=== PATIENT | female | born 1960 | race African-American/Black ===

== ENCOUNTER 2016-12-03 19:55 | Inpatient (IN) ==
[2016-12-03] MEDS ORDERED: NARCAN IV ONE (20:05)
[2016-12-03 20:36] LABS: ALLEN TEST YES; BE 2.9 mmoll (-3.0-3.0); BLOOD TYPE ARTERIAL; DRAW SITE R RADIAL; METHB 1.3 % (0.0-1.5); O2(CT) 6.7 mL/dL (15.0-23.0); PCO2(98.6) 37 mmHg (35-45); PO2(98.6) 101 mmHg (60-100); SAMPLE BLOOD; SAO2 99.6 % (95.0-100.0); THB 4.8 g/dL (11.5-17.4); pH(98.6) 7.47 (7.35-7.45)
[2016-12-03 20:37] LABS: MODALITY CANNULA
[2016-12-03 20:40] LABS: BASO% 0.1 % (0.0-0.8); EOS# 0.01 X1000 (0.0-0.7); HEMATOCRIT 14.9 % (37.0-47.0); HEMOGLOBIN 4.7 g/dL (12.0-16.0); IMM GRAN# 0.11 X1000 (0.0-0.04); IMM GRAN% 0.4 % (0.0-0.5); LYMPH# 2.56 X1000 (1.2-3.4); LYMPH% 10.4 % (20.5-51.1); MANUAL DIFF NEEDED? YES; MCH 23.6 PG (27-31); MCHC 31.5 g/dL (33-37); MCV 74.9 FL (81-99); MONO# 1.69 X1000 (0.11-0.59); MONO% 6.9 % (1.7-9.3); MPV 10.1 FL (7.4-10.4); NEUT% 82.2 % (42.2-75.2); PLT 882 X1000 (130-400); RBC 1.99 XMIL (4.2-5.4)
--- NOTE | 2016-12-03 20:41 | Diag Imaging Result Doc PS360 ---
EXAM: HEAD W/O CONTRAST HISTORY: AMS TECHNIQUE: Dose reduction protocol COMPARISON: 10/18/2014 FINDINGS: No parenchymal hemorrhage. No epidural or subdural hematoma. No subarachnoid hemorrhage. No mass identified on this noncontrasted exam. No hydrocephalus. No sinus opacification. IMPRESSION: No hemorrhage. Negative brain CT without contrast. Electronically signed by Martell Araujo 12/03/2016 8:37 PM
[2016-12-03 20:44] LABS: AGAP 15; ALBUMIN 3.1 g/dL (3.5-5.0); ALKALINE PHOSPHATASE 92 U/L (32-104); BUN 48 mg/dL (8-22); CALCIUM 10.6 mg/dL (8.8-10.2); CHLORIDE 94 mmol/L (98-107); CK PROFILE 90 U/L (24-173); COSMO 302; GOT 16 U/L (10-30); GPT 12 U/L (10-36); SODIUM 133 mmol/L (136-145); TCO2 24 mmol/L (25-35); TOTAL BILIRUBIN 0.21 mg/dL (0.20-1.00); TOTAL PROTEIN 5.9 g/dL (6.3-8.3)
[2016-12-03 20:55] LABS: INR 1.11; PROTIME 11.7 Seconds (9.2-11.7); PTT 21.5 Seconds (22.0-36.0)
[2016-12-03] MEDS ORDERED: HUMULIN R SUBQ ONE (21:01)
[2016-12-03 21:03] LABS: HYPOCHROM 2+; LYMPHS 8 % (21-51); MONO 8 % (1-9); NRBC 1 % (0-0)
--- NOTE | 2016-12-03 21:11 | Diag Imaging Result Doc PS360 ---
EXAM: CHEST-PORTABLE HISTORY: AMS TECHNIQUE: Portable COMPARISON: 10/18/2014 FINDINGS: The lungs are well expanded. Heart is not enlarged. The vessels are not distended. No pneumonia. No pleural effusions identified. IMPRESSION: Negative chest. Electronically signed by Martell Araujo 12/03/2016 9:09 PM
[2016-12-03 21:18] LABS: URINE CULTURE NEEDED? NO; URINE MICRO REVIEW NEEDED? NO; URINE SOURCE CATH
[2016-12-03 21:26] LABS: BILIRUBIN URINE NEGATIVE (NEGATIVE); BLOOD URINE NEGATIVE (NEGATIVE); COLOR YELLOW; GLUCOSE URINE >1000 mg/dL (NEGATIVE); LEUKOCYTES URINE NEGATIVE (NEGATIVE); NITRITE URINE NEGATIVE (NEGATIVE); PH URINE 5.5; PROTEIN URINE TRACE mg/dL (NEGATIVE); SP GRAVITY URINE 1.024; TURBIDITY URINE CLEAR (CLEAR); UROBILINOGEN URINE NORMAL (NORMAL)
[2016-12-03] MEDS ORDERED: PROTONIX 80 MG in NS 80 ML IV ONE (21:30)
[2016-12-03 21:36] LABS: UR EPITHELIAL CELLS <10 /HPF (<10); URINE BACTERIA NEGATIVE /HPF; URINE RBC <10 /HPF (<10); URINE WBC <10 /HPF (<10)
[2016-12-03 21:38] LABS: UR AMPHETAMINES QUAL NONE DETECTED (NONE DETECT); UR BARBITUATES QUAL NONE DETECTED (NONE DETECT); UR BENZODIAZEPIN QUAL NONE DETECTED (NONE DETECT); UR CANNABINOIDS QUAL NONE DETECTED (NONE DETECT); UR COCAINE QUAL NONE DETECTED (NONE DETECT); UR METHADONE QUAL NONE DETECTED (NONE DETECT); UR OPIATES QUAL NONE DETECTED (NONE DETECT); UR OXYCODONE QUAL PRESUMPTIVE POSITIVE (NONE DETECT); UR PCP QUAL NONE DETECTED (NONE DETECT)
[2016-12-03] MEDS ORDERED: MORPHINE IM ONE (21:55)
[2016-12-03] MEDS ORDERED: PROTONIX 80 MG in NS 80 ML IV SCH (22:00)
[2016-12-03] MEDS ORDERED: MORPHINE IV ONE (22:20)
--- NOTE | 2016-12-03 22:41 | PROVIDER DOCUMENTATION ---
This chart was entered by Olamide Pastor Scribe, acting as scribe for Jamie Morton MD. HPI-General Adult - General Chief Complaint: Altered Mental Status Stated Complaint: HIGH BLOOD SURGER Time Seen by Provider: 12/03/16 19:59 Source: EMS Unable to obtain history due to:: altered Allergies/Adverse Reactions: Patient Allergies Allergy/AdvReac Type Severity Reaction Status Date / Time No Known Allergies Allergy Verified 12/03/16 20:34 Home Medications: Home Medication List Medication Instructions Recorded Confirmed Last Taken Type Amlodipine Besylate 5 mg PO DAILY 12/03/16 12/03/16 Unknown History Apixaban [Eliquis] 2.5 mg PO DAILY 12/03/16 12/03/16 Unknown History Clopidogrel Bisulfate [Plavix] 75 mg PO DAILY 12/03/16 12/03/16 Unknown History Cyclobenzaprine [Flexeril] 1 tab PO TID PRN 12/03/16 12/03/16 Unknown History Diclofenac Sodium 50 mg PO BID 12/03/16 12/03/16 Unknown History Doxepin [Sinequan] 25 mg PO DAILY 12/03/16 12/03/16 Unknown History Gabapentin 800 mg PO TID 12/03/16 12/03/16 Unknown History Glipizide 5 mg PO DAILY 12/03/16 12/03/16 Unknown History Iron,Carbonyl/Vit C/Vit B12/FA 1 tab PO DAILY 12/03/16 12/03/16 Unknown History [Iron 100 Plus Tablet] Lansoprazole 30 mg PO DAILY 12/03/16 12/03/16 Unknown History Melatonin 10 mg PO DAILY 12/03/16 12/03/16 Unknown History Metformin [Glucophage] 1 tab PO BID 12/03/16 12/03/16 Unknown History Multivit-Min/FA/Lycopen/Lutein 1 tab PO DAILY 12/03/16 12/03/16 Unknown History [Centrum Silver Tablet] Oxycodone HCl/Acetaminophen 1 tab PO TID PRN 12/03/16 12/03/16 Unknown History [Oxycodone-Acetaminophen 10-325] Oxymorphone HCl [Opana ER] 15 mg PO BID 12/03/16 12/03/16 Unknown History Pravastatin Sodium [Pravachol] 20 mg PO DAILY 12/03/16 12/03/16 Unknown History Sucralfate [Carafate] 1 tab PO TID 12/03/16 12/03/16 Unknown History Telmisartan/Hydrochlorothiazid 1 tab PO DAILY 12/03/16 12/03/16 Unknown History [Telmisartan-Hctz 80-12.5 mg Tb] Thyroid,Pork [Nature-Throid] 97.5 mg PO DAILY 12/03/16 12/03/16 Unknown History Vortioxetine Hydrobromide 10 mg PO DAILY 12/03/16 12/03/16 Unknown History [Trintellix] - History of Present Illness -Gen Adult Nature of Presenting Problems: 56 Y/O F presents to ED with Hypoglycemia. Pt was brought in by EMS, EMS states that pt was A&O X1 slightly improved with a Bolus of fluid. Pt was picked up in [place] at her residence, called in by sons. pt glucose was over 600 tested by EMS.EMS states family stated worsening throughout the day. Severity: reports: severe Onset/Duration: reports: this evening Timing: reports: still present Context/Activities at Onset: reports: none - Diabetes Related Context Context: reports: high blood sugar, change in mental status Review of Systems - Adult - REVIEW OF SYSTEMS - ADULT ROS:: unobtainable per condition (pt is Altered in ED) Constitutional: denies: chills, fever Eyes: reports: no symptoms reported Ears, Nose, Mouth & Throat: reports: no symptoms reported Cardiovascular: reports: no symptoms reported Respiratory: reports: no symptoms reported Gastrointestinal: reports: no symptoms reported Genitourinary: reports: no symptoms reported Musculoskeletal: reports: no symptoms reported Integumentary: reports: no symptoms reported Neurological: reports: no symptoms reported Psychiatric: reports: no symptoms reported Endocrine: reports: other (high blood sugar) Hematologic/Lymphatic: reports: no symptoms reported Allergic/Immunologic: reports: no symptoms reported All Other Systems: Reviewed and Negative Past History - Adult - PAST MEDICAL HISTORY-ADULT Review of Records: reports: Old Records Reviewed, Nursing Assessment Review, Medications Reviewed, Social history reviewed & non-contributory. Major Childhood Illnesses: reports: denies history Cardiovascular: reports: CHF, HTN, hyperlipidemia Respiratory: reports: denies history Gastrointestinal: reports: denies history Obstetrical/Gynecological: reports: denies history Genitourinary: reports: denies history Musculoskeletal: reports: chronic pain, intervertebral disc disease Neurological: reports: CVA Endocrine/Immune: reports: Diabetes Other Conditions: reports: denies history - PRIOR SURGERIES/PROCEDURES Surgical/Procedure History: reports: cholecystectomy, hysterectomy, BTL, other ( nodules, cataract) - PRIOR HOSPITALIZATIONS Prior Hospitalizations: reports: for other non-related - IMMUNIZATION STATUS Childhood Immunizations: See Nurse Assessment Flu Vaccine: See Nurse Assessment - FAMILY HISTORY Family History: reviewed, not pertinent Physical Exam-General - CONSTITUTIONAL General Appearance: moderate distress. negative: appears well - HEAD, EARS, NOSE, MOUTH & THROAT HENMT: normal ENT inspection. negative: moist mucous membranes - NECK Neck: full range of motion, supple - RESPIRATORY Respiratory: lungs clear, normal breath sounds - CARDIOVASCULAR Cardiovascular: regular rate, rhythm - GASTROINTESTINAL (ABDOMEN) Abdominal Exam: non tender, soft - LYMPHATIC Lymphatic: no adenopathy - MUSCULOSKELETAL Back Exam: no CVA tenderness, no vertebral tenderness Extremity: normal range of motion - SKIN Integumentary: normal color, normal turgor - NEUROLOGIC Neurologic: grossly normal Progress - PLAN OF CARE/RESULTS Progress/Plan/Lab Results: Vital Signs - 8 hr 12/03/16 20:03 Temperature 100.4 F H Pulse Rate 122 H Respiratory Rate 20 Blood Pressure 125/49 O2 Sat by Pulse Oximetry 92 L Orders Category Date Time Status Cardiac Monitoring DIRECTED Care 12/03/16 20:05 Active Finger Stick Blood Sugar (ED) DIRECTED Care 12/03/16 20:05 Active Oxygen Therapy- ED Nursing DIRECTED Care 12/03/16 20:05 Active Saline Loc NOW Care 12/03/16 20:05 Active CHEST-PORTABLE [RAD] Stat Exams 12/03/16 20:05 Ordered HEAD W/O CONTRAST [CT] Stat Exams 12/03/16 20:06 Ordered ABG [RESP] Routine Lab 12/03/16 20:05 Ordered ALCOHOL BLOOD Stat Lab 12/03/16 20:05 Uncollected CBC WITH ELECTRONIC DIFF [HEME] Stat Lab 12/03/16 20:05 Uncollected CK PROFILE [SP CHEM] Stat Lab 12/03/16 20:05 Uncollected COMPREHENSIVE METABOLIC PANEL [CHEM] Stat Lab 12/03/16 20:05 Uncollected LACTATE, PLASMA [CHEM] Stat Lab 12/03/16 20:05 Uncollected PROTIME WITH INR [COAG] Stat Lab 12/03/16 20:05 Uncollected PTT [COAG] Stat Lab 12/03/16 20:05 Uncollected TROPONIN T Stat Lab 12/03/16 20:05 Uncollected URINALYSIS W/POSS RFLX CULT-1 [URINALYSIS] Stat Lab 12/03/16 20:05 Uncollected URINE DRUG SCREEN Stat Lab 12/03/16 20:05 Uncollected Naloxone [Narcan] Med 12/03/16 20:05 Discontinued 2 mg IV NOW ONE Pulse Oximetry Stat Oth 12/03/16 20:05 Active EKG [EKG] Stat Ther 12/03/16 20:05 Ordered Pt isn't able to follow commands on original exam. Result Diagrams: 12/03/16 20:11 12/03/16 20:11 - EKG 1 Time of EKG reading by physician:: 20:42 EKG Read and Signed by:: Jamie Morton EKG Interpretation (*Must complete 3 of following elements*): Abnormal Rate: 85 Rhythm: SR w/ marked Sinus arrhythmia w/ occasional premature ventricular complexes QRS: LVH (minimal voltage criterua, may be normal variant) Comments: Abnormal ECG,T wave abnormality, consider inferolateral ischemia - XRAY 1 XRAY Study: Chest Impression: Normal XRAY Interpretation: NAD - CT/MRI 1 CT Study: Head Impression: Normal CT Results: Negative - CONSULTS/PCP/HOSPITALIST Notification #1 *Consult/PCP/Hospitalist*: Time Discussed: 21:31 Reason/Comments: Admit Consult Disposition: Admit (Admit Accepted) Departure - Departure Date of Disposition Decision: 12/03/16 Time of Disposition Decision: 22:41 DIAGNOSIS: Altered mental status GI bleed Qualifiers: GI bleed type/associated pathology: unspecified gastrointestinal hemorrhage type Qualified Code(s): K92.2 - Gastrointestinal hemorrhage, unspecified Disposition: ADMITTED INPATIENT 09 Certified Medical Emergency: Emergent Condition: Good - Critical Care Note This patient required my direct & personal management of CC.: No This chart was documented by the indicated scribe, (Olamide Pastor Scribe) and accurately reflects the services I performed and decisions made by me, Jamie Morton MD, as attested by the provider's signature.
[2016-12-03] MEDS ORDERED: VANCOMYCIN 1 GM/NS 1 GM/250 ML IVPB IV ONE (22:42)
[2016-12-03] MEDS ORDERED: ZOSYN 3.375 GM/NS 3.375 GM/50 ML IVPB IV ONE (22:42)
[2016-12-03 22:53] LABS: RETIC% 5.63 % (0.8-2.1); RETIC-HE 23.1 PG (28.2-36.6)
[2016-12-03 23:02] LABS: MAGNESIUM 2.1 mg/dL (1.5-2.7)
[2016-12-03 23:06] LABS: HEMOGLOBIN A1C 8.8 % (4.8-6.0)
[2016-12-03] MEDS ORDERED: SODIUM CHLORIDE 0.9% INJ ONE (23:33)
[2016-12-03] MEDS ORDERED: HALDOL IM PRN (23:33)
[2016-12-03] MEDS ORDERED: ZOFRAN IV PRN (23:33)
[2016-12-04] MEDS: PEPCID IV SCH ×3 (00:05→22:53)
[2016-12-04] MEDS: NS 1,000 ML IV SCH ×3 (00:06→21:35)
[2016-12-04] MEDS: HUMALOG SUBQ SCH ×3 (00:34→07:34)
[2016-12-04 00:51] LABS: HEMATOCRIT 15.3 % (37.0-47.0); HEMOGLOBIN 4.8 g/dL (12.0-16.0)
--- NOTE | 2016-12-04 02:01 | HISTORY AND PHYSICAL ---
HISTORY OF PRESENT ILLNESS: Ms. Dean French is a 56-year-old woman with a past medical history of type 2 diabetes, obstructive sleep apnea, hypertension, peripheral vascular disease, prior CVA, and a history of polypharmacy, with episodes of overdosing inadvertently. She was brought in today by her son, who has since left the hospital, because she was confused and very drowsy and lethargic. She was then given 2 mg of IV Narcan, and became highly animated, agitated, but no longer hypoxic or lethargic. Since then, she has been hollering and shouting, and is unable to answer most of my questions, except she can tell me her name. When I asked if she is hurting, she just keeps hollering. I am unable to get any history. Unfortunately, her son had left hours ago because he said he could no longer do this anymore, and was fed up with his mother's excesses as far as her medication is concerned. REVIEW OF SYSTEMS: Could not be obtained for obvious reasons. ALLERGIES: No known allergies. HOME MEDICATION LIST: 1. Norvasc 5 mg daily. 2. Eliquis 2.5 mg daily. 3. Plavix 75 mg daily. 4. Flexeril 10 mg t.i.d. p.r.n. 5. Diclofenac 5 mg b.i.d. 6. Doxepin 25 mg daily. 7. Gabapentin 100 mg t.i.d. 8. Glipizide 5 mg daily. 9. Icar-C one tablet daily. 10. Lansoprazole 30 mg daily. 11. Melatonin 10 mg at bedtime. 12. Metformin 500 mg b.i.d. 13. Multivitamin tablets once a day. 14. Percocet 10 mg t.i.d. p.r.n. 15. Opana ER 15 mg b.i.d. 16. Pravachol 20 mg daily. 17. Carafate 1 g t.i.d. 18. Micardis/hydrochlorothiazide 80/12.5 mg daily. 19. Thyroid pork 97.5 mg daily. 20. Vortioxetine 10 mg daily. FAMILY HISTORY: Could not be obtained for obvious reasons. PAST SURGICAL HISTORY: Per old records, she has had cataract surgery, peripheral vascular, angioplasty, Clay-en-Y surgery for obesity, cholecystectomy, total abdominal hysterectomy, tubal ligation. SOCIAL HISTORY: Cannot be obtained also. LABORATORY WORK: White count 74,000. Hemoglobin and hematocrit 4 and 15, MCV 75, RDW 17, platelets 882, 82% neutrophils. Sodium 133. Anion gap 15. BUN 48, creatinine 1.1. Blood sugar is 511. Troponin is negative. CK is normal. Lactate 1.5. Urine drug screen positive for oxycodone. Urinalysis: Greater than 1000 glucose, otherwise normal. Blood gas 7.47. pCO2 37, PO2 101, this is on 4 L. Chest x-ray and head CT did not show any acute cardiopulmonary or intracranial processes. PHYSICAL EXAMINATION: GENERAL: Middle-aged woman who is hollering and howling. She is unable to answer any questions. Intermittently, she will calm down and be slightly somnolent. VITAL SIGNS: Temperature of 100.4 degrees, pulse rate 112, respiratory rate 20, blood pressure 125/49, 92% on 2 L. HEENT: Head is normocephalic, atraumatic. Eyes JOHN, EOMI. She is anicteric, but pale. ENT exam is very limited. The patient cannot follow commands. Nasal sinuses visualized however. NECK: Supple. No JVD or carotid bruit. No thyromegaly. CHEST: Clear to auscultation. Good air entry in both lung denise. CARDIOVASCULAR: A 2/6 systolic ejection murmur heard. First and second heart sounds heard. No gallops. Rhythm is regular. ABDOMEN: Soft. No tenderness elicited, i.e. no grimacing. No masses or organomegaly appreciated. Bowel sounds are slightly hyperactive. RECTAL: Deferred rectal exam for GI doctor. EXTREMITIES: Neurovascularly intact. No edema, clubbing, or cyanosis. NEUROLOGIC: No significant focal deficits. SKIN: Intact. No breakdown, lesions, erythema. Good turgor. MUSCULOSKELETAL: Exam is grossly normal. ASSESSMENT AND PLAN: 1. Severe anemia, probably chronic, due to the nature of her MCV, and the fact that her vital signs are relatively stable in the face of this severe degree of anemia. My suspicion is that this patient may have upper GI bleed based on elevated BUN, and risk factors include the following: Eliquis use with Plavix, and an NSAID. She is also taking an SSRI. All of these 4 combine to cause this picture. The patient has been typed and screened, and she will receive 2 units of packed red blood cells at this time. In the interim, she has received IV fluids. Unfortunately, due to the scarcity of PPIs, Protonix, will start on H2 blockers IV high-dose. Consult GI to see her. We will do serial hemoglobin and hematocrits and transfuse accordingly. 2. Leukocytosis, query infectious etiology versus reactive leukocytosis. At this point in time, I cannot see any clear-cut infectious etiology. Will get blood cultures. There is a remote possibility that this could have been an aspiration pneumonia, although there is nothing at this point to suggest this. I think it will be prudent to wait and see if her white count improves after transfusion and hydration, and if it does not, then we will consider repeating either a chest film or a noncontrast third CT to see if she has an occult aspiration pneumonia. 3. Metabolic encephalopathy could be due to hyperglycemia and dehydration. Will address these with insulin sliding scale and Lantus, and IV fluid resuscitation. 4. Type 2 diabetes, well-controlled. Check A1c. Continue Lantus with sliding scale. 5. Hypertension. For now, she is normotensive. Will hold off antihypertensives in the short term, and will start these as needed. 6. Peripheral vascular disease. Held both Plavix and Eliquis in light of highly suspected picture of a GI bleed. 7. Sleep apnea. Once family arrives, we will try to see if we can get a CPAP if she is lucid enough to comply with this. 8. DVT prophylaxis with SCDs in the interim. 9. We will give her low dose opiates and Haldol because the patient is screaming incessantly, as tolerated, without compromising her cardiorespiratory status. cc: MD Meghan Haley MD
[2016-12-04] MEDS ORDERED: D50W SYRINGE IV ONE ×4 (06:02→15:32)
[2016-12-04] MEDS ORDERED: D50W SYRINGE ONE ×4 (06:06→15:26)
[2016-12-04 06:36] LABS: URINE CULTURE NEEDED? NO; URINE MICRO REVIEW NEEDED? NO; URINE SOURCE CATH
[2016-12-04 06:56] LABS: BILIRUBIN URINE NEGATIVE (NEGATIVE); BLOOD URINE NEGATIVE (NEGATIVE); COLOR YELLOW; GLUCOSE URINE 1000 mg/dL (NEGATIVE); LEUKOCYTES URINE NEGATIVE (NEGATIVE); NITRITE URINE NEGATIVE (NEGATIVE); PH URINE 5.5; PROTEIN URINE TRACE mg/dL (NEGATIVE); SP GRAVITY URINE 1.017; TURBIDITY URINE CLEAR (CLEAR); UR EPITHELIAL CELLS <10 /HPF (<10); URINE BACTERIA NEGATIVE /HPF; URINE RBC <10 /HPF (<10); URINE WBC <10 /HPF (<10); UROBILINOGEN URINE NORMAL (NORMAL)
[2016-12-04] MEDS ORDERED: NS 1,000 ML IV SCH (07:51)
[2016-12-04 08:23] LABS: MANUAL DIFF NEEDED? NO
[2016-12-04 08:27] LABS: RETIC% 3.29 % (0.8-2.1); RETIC-HE 24.1 PG (28.2-36.6)
[2016-12-04 08:28] LABS: BASO% 0.1 % (0.0-0.8); EOS# 0.09 X1000 (0.0-0.7); EOS% 0.3 % (0.0-10.0); HEMATOCRIT 25.4 % (37.0-47.0); HEMOGLOBIN 8.5 g/dL (12.0-16.0); IMM GRAN% 0.4 % (0.0-0.5); LYMPH# 3.52 X1000 (1.2-3.4); LYMPH% 13.5 % (20.5-51.1); MCHC 33.5 g/dL (33-37); MCV 77.7 FL (81-99); MONO# 2.64 X1000 (0.11-0.59); MONO% 10.1 % (1.7-9.3); MPV 9.3 FL (7.4-10.4); NEUT% 75.6 % (42.2-75.2); PLT 752 X1000 (130-400); RBC 3.27 XMIL (4.2-5.4)
[2016-12-04 09:19] LABS: ALBUMIN 2.9 g/dL (3.5-5.0); CALCIUM 10.9 mg/dL (8.8-10.2); POTASSIUM 3.1 mmol/L (3.5-5.1); TOTAL BILIRUBIN 0.22 mg/dL (0.20-1.00)
--- NOTE | 2016-12-04 10:31 | Diag Imaging Result Doc PS360 ---
EXAM: THORAX/ABDOMEN/PELVIS W/O CONT HISTORY: leukocytosis/fever TECHNIQUE: Dose reduction protocol COMPARISON: None. FINDINGS: Chest: No pleural effusions. Heart is borderline mildly prominent. No thoracic aortic aneurysm. There are small mediastinal lymph nodes. No consolidation. A small amount of atelectasis or fibrosis is found in the left lung base. No bronchiectasis. Abdomen and pelvis: There has been a gastric bypass procedure. The gallbladder has been removed. No focal hepatic abnormality identified on this noncontrasted exam. Normal spleen and adrenal glands. Normal noncontrasted pancreas. No renal stones. No hydronephrosis. Nonspecific mild retroperitoneal inflammation about the kidneys. Prominent atherosclerosis. No aneurysmal dilatation to the aorta. No bowel obstruction. There is stool throughout the mid and distal colon. The uterus is been removed. No pelvic mass. Urinary bladder is moderately distended IMPRESSION: Chest: No pneumonia Abdomen and pelvis: 1. Gastric bypass and cholecystectomy 2. Constipation 3. Hysterectomy 4. Prominent atherosclerosis. Electronically signed by Martell Araujo 12/04/2016 10:28 AM
[2016-12-04] MEDS ORDERED: D5 NS 1,000 ML IV SCH (10:35)
[2016-12-04] MEDS: HUMULIN R SUBQ SCH ×3 (10:38→21:00)
[2016-12-04] MEDS ORDERED: POTASSIUM CHLORIDE 60 MEQ in NS 500 ML IV ONE (11:00)
[2016-12-04] MEDS ORDERED: SODIUM CHLORIDE 0.9% 10 ML ONE ×2 (11:03→14:21)
[2016-12-04] MEDS ORDERED: DULCOLAX PR ONE (11:05)
--- NOTE | 2016-12-04 11:20 | PROGRESS NOTE ---
DATE: 12/04/2016 SUBJECTIVE: The patient was still very sleepy and lethargic. She has been hypoglycemic this morning. She received 2 units of packed red blood cells this morning. OBJECTIVE: Vital Signs: Temperature 98 degrees, blood pressure 130/61, heart rate 91, respirations 18, O2 saturations 99% on 2 L nasal cannula. General: This is an elderly female, lying in bed, in no acute distress. HEENT: Head normocephalic, atraumatic. Heart: S1, S2 normal. Regular rate and rhythm. Lungs: Clear to auscultation bilaterally. No crackles. No rales. Abdomen: Positive bowel sounds. Soft, nontender, nondistended. Extremities: No edema. No cyanosis. No calf tenderness. Neurologic: The patient is lethargic but she does awaken when her name is called. Labs: White blood cell count 26, hemoglobin 8.5, hematocrit 25, platelets 752,000. Sedimentation rate 30. Sodium 140, potassium 3.1, chloride 102, CO2 24, BUN 44, creatinine 1.3, glucose 36, calcium 10.9, phosphorus 2.7. Albumin 2.9. The CT of the chest, abdomen, and pelvis reveals constipation, cholecystectomy, gastric bypass, stool throughout the colon. ASSESSMENT AND PLAN: 1. Metabolic encephalopathy. Multifactorial. So far, no obvious source of infection has been found. The patient's urinalysis is unremarkable and there is no evidence of pneumonia on the chest CT. Infectious disease has been consulted for further assistance. We will continue to monitor the patient's mental status closely. 2. Hypoglycemia with uncontrolled insulin-dependent diabetes mellitus. We will hold the patient's insulin. The patient will be started on D5 normal saline. We will check the patient's blood sugars every hour. 3. Severe anemia. Due to the patient's altered mental status, I am unable to get a history about the patient's bowel habits. The patient has received 2 units of packed red blood cells, and her hemoglobin and hematocrit are improved 8.5 and 25. The patient is iron deficient. Gastroenterology has been consulted. 4. Leukocytosis. According to the differential, the patient does have a monocytosis. The smear has been sent for pathology review. We will follow up on this report. 5. Iron-deficiency anemia. We will continue to monitor the patient's hemoglobin and hematocrit closely, and transfuse as needed. 6. Thrombocytosis. This may be reactive. We will continue to monitor the patient's platelet count closely. 7. Hypokalemia. We will replace the patient's potassium. 8. Acute kidney injury. Continue with intravenous fluid hydration. 9. Hypertension. Controlled. 10. Hypothyroidism. Aware. 11. History of gastric bypass. Aware. The plan of care was discussed with the patient's son over the phone. cc: Lluvia Kumari MD
[2016-12-04 12:39] LABS: HEMATOCRIT 24.4 % (37.0-47.0); HEMOGLOBIN 8.2 g/dL (12.0-16.0)
--- NOTE | 2016-12-04 15:39 | CONSULTATION ---
DATE OF CONSULTATION: 12/04/2016 CONCLUSION: The patient was admitted to the hospital with her diabetes out of control and she also has been found to have a leukocytosis, the exact etiology of which is uncertain to me. RECOMMENDATIONS: Pending results of cultures I have placed the patient on cefepime. DISCUSSION: The patient does not remember all of her present illness. According to the chart, she was brought in by her son because she was confused and was lethargic. She was given Narcan and became highly animated and agitated but not hypoxic. She had apparently had continued with her hollering and shouting but by the time I saw her today she was out completely composed and talked and acted very appropriately. Unfortunately no family member was present in the room. As mentioned above the patient was brought in to the hospital with an altered mental status. Her CBC showed a white count of 26,050, hemoglobin 8.5 and platelet count 752,000. Creatinine is 1.3. Patient's blood gases show a pH of 7.47, PO2 of 101, pCO2 of 37. Urinalysis was negative for bacteria and white cells. Blood and urine cultures are pending. Chest x- ray showed no infiltrates. CT scan of the chest, abdomen and pelvis showed the presence of a gastric bypass, a cholecystectomy and hysterectomy. Patient also was found to have constipation. CT of the head showed no acute disease. As mentioned above, blood and urine cultures are pending. PAST MEDICAL HISTORY, REVIEW OF SYSTEMS: Eyes and ears: The patient denies any difficulty hearing or seeing. Neck: No stiffness. Respiratory: No cough or shortness of breath. Cardiac: No chest pain or palpitations. GI: No nausea, vomiting, or diarrhea. Genitourinary: No dysuria or flank pain. Endocrine: Patient has diabetes but not thyroid disease. Bones, joints, muscles: Patient is not complaining of any joint pains and she is not complaining of any muscle aches at this time. Neurologic: Patient had an altered mental status when she came to the hospital but now she seems to have returned to normal. She does not have a history of seizures. The remainder of the patient's review of systems was completed and was negative. BRANCH COORDINATOR HISTORY: She is 1, para 1, AB 0. She has had a hysterectomy and tubal ligation. PREVIOUS HOSPITALIZATIONS OPERATIONS: She has had a labor and delivery, a hysterectomy, tubal ligation, gastric bypass, removal of cyst from both axillae. MEDICAL DISEASES: Positive for diabetes mellitus, hypertension, sleep apnea, peripheral vascular disease and overdosing on medications inadvertently. SOCIAL HISTORY: [place] She smoke cigarettes. Does not drink alcoholic beverages or abuse drugs. She is , she lives alone. She is retired from working at [employer]. HOME MEDICATIONS: Include Norvasc, Eliquis, Plavix, Flexeril, diclofenac, doxepin, gabapentin, Icar, lansoprazole, melatonin, metformin, multivitamins, Percocet, Opana ER, Pravachol, Carafate, Micardis/hydrochlorothiazide, thyroid replacement therapy and Vortioxetine. COMORBIDITIES: Would include diabetes mellitus and also the fact that inadvertently does not take her medications as they are prescribed. PHYSICAL EXAM: Vital signs- Temp 97.9, pulse 77, respiration 18, BP 120/61. Lungs-clear to auscultation. CV-regular HR, decreased peripheral pulses. Abdomen-soft and not tender. Neuro-alert, moves all extremities, oriented x 3. Skin-no rashes. HEENT-hearing and vision intact. Thank you for the consult. cc: Arian Mason MD [place]
[2016-12-04] MEDS: MAXIPIME 2 GM/NS 2 GM/100 ML IVPB IV SCH (15:42)
[2016-12-04] MEDS: MORPHINE IV PRN ×2 (15:50→21:35)
[2016-12-04 17:20] LABS: HEMATOCRIT 23.1 % (37.0-47.0); HEMOGLOBIN 7.5 g/dL (12.0-16.0)
--- NOTE | 2016-12-04 17:50 | CONSULTATION ---
DATE OF CONSULTATION: 12/04/2016 CONSULTING PHYSICIAN: Dr. Malhotra. REASON FOR CONSULT: Was profound anemia. HISTORY: This is 56 year female patient with history of diabetes was admitted to hospital after she presented to the emergency room with altered mental status. On admission she was found to have profound anemia with leukocytosis. Consult was obtained for further evaluation and treatment. Patient since admission has recovered her mental status and she is conscious, alert and responding to questions very well. She tells me that she has not had any signs of active bleeding. She has not seen any blood or mucus in her stool. She is not constipated, denies any melena. She has not had any indigestion, heartburn, reflux symptoms. She has not had any dysphagia, odynophagia. Her appetite has been good. She has been eating well. She has not lost any weight. She had a colonoscopy few years ago by Dr. Kraus in [place] and was reported as normal and she is not due for another 1 for few years as it was advised for her to have it done in 10 years. She denies any headache or dizziness or double vision. Denies any earache, ear discharge, ringing in the ear. Has not any sore throat, sores in her mouth. Has not had any chest pain, shortness of breath, or palpitation. Denies any cough , sputum or hemoptysis. She denies dysuria, polyuria, hematuria. PAST MEDICAL HISTORY: Significant for diabetes, hypertension, hypothyroidism and history of anemia. PAST SURGICAL HISTORY: She has history of peripheral vascular disease, gastric bypass surgery, cholecystectomy, hysterectomy and TL. MEDICATION: Prior to hospitalization she has been on diclofenac 5 mg p.o. b.i.d., Eliquis 2.5 mg daily, Plavix 75 mg every day. Other medication she is on Carafate, Norvasc, Flexeril, doxepin, gabapentin, glipizide, Icar-C, lansoprazole, melatonin, metformin, multivitamins , Percocet, Opana, Pravachol and Micardis hydrochlorothiazide, thyroid and vortioxetine. Please add SOCIAL HISTORY: She is retired and lives by herself. She smokes but does not drink, does not do illicit drugs. FAMILY HISTORY: Noncontributory. REVIEW OF SYSTEMS: As per HPI as above. PHYSICAL EXAM: General: On examination very pleasant female thin built , conscious, alert, appears to be in no distress . Vital Signs: Temperature 97.9 degrees, pulse is 77 per minute regular, breathing at 18, blood pressure 120/71, she weighs about 160 pounds, she is 5 feet 6 inches tall. HEENT: Head is atraumatic, normocephalic. Conjunctivae is pale. Sclerae anicteric. Nares are patent. No discharge. Mouth: Buccal mucosa moist. Throat is normal. Neck: Supple. No lymphadenopathy or thyromegaly. Chest: Clear to auscultate. Heart: Regular, no murmur. Abdomen: Is flat, soft, nontender, no masses were noted. Bowel sounds are audible. Extremities: No pedal edema noted. LABS: Reviewed which showed on admission her hemoglobin was 4.8 with hematocrit 15.3, MCV of 74.9, white count was 24.65, platelets were 882,000. PT 11.7, INR 1.11, PTT was 21.5. Sodium on admission was 133, potassium 4.0, chloride 94, bicarb 24, BUN was 48, creatinine 1.1, glucose on admission was 511, hemoglobin A1c was 8.8, iron was low 19, ferritin was 17, total bilirubin 0.21, AST 16, ALT 12, alkaline phosphatase 92, total protein was 5.9, albumin 3.1. IMPRESSION: This is 56 year female who has history of gastric bypass surgery, has been on Eliquis, Plavix along with diclofenac and has presented with altered mental status. Was found to have profound anemia. Indices suggestive of iron deficiency anemia and Hemoccult was positive. There is question of possible occult chronic GI bleed with further complicated by her iron malabsorption secondary to her gastric bypass surgery. She has not shown any signs of overt active bleeding. She is hemodynamically stable after she was rehydrated and she is conscious and alert and responding to questions very well now. Again she is not actively bleeding now. Her hemoglobin and hematocrit has improved after blood transfusion. Since she has had a colonoscopy not too long ago with Dr. Kraus I will start with the esophagogastroduodenoscopy to rule out marginal ulcers that could be reason for occult bleed and anemia. I have explained to her the procedure risks, benefits, alternatives of EGD, she understands, agrees to proceed. She will be scheduled. In the meantime Dr. Mason is on the case for to evaluate for possible infectious etiology of her presentation, her white count has been elevated and workup is in progress. Rest of medical care according to the team. Further plans of repeating her colonoscopy or other measures will be depend on EGD findings that will be scheduled for tomorrow. cc: Shashank Gu MD MTDD
[2016-12-04] MEDS ORDERED: LANTUS SUBQ SCH (21:00)
[2016-12-05] MEDS: MORPHINE IV PRN ×3 (01:23→18:30)
[2016-12-05] MEDS: MAXIPIME 2 GM/NS 2 GM/100 ML IVPB IV SCH ×2 (04:42→16:31)
--- NOTE | 2016-12-05 05:19 | EKG Report ---
Test Performed on : 12/04/2016 1:15:52 PM Test Reason : tachycardia Blood Pressure : / mmHG Vent. Rate : 072 BPM Atrial Rate : 072 BPM P-R Int : 136 ms QRS Dur : 094 ms QT Int : 380 ms P-R-T Axes : 059 018 106 degrees QTc Int : 416 ms Normal sinus rhythm. with sinus arrhythmia. Minimal voltage criteria for LVH, may be normal variant Nonspecific T wave abnormality Abnormal ECG When compared with ECG of 03-DEC-2016 20:42, (Unconfirmed) premature ventricular complexes. are no longer present T wave inversion no longer evident in Inferior leads Confirmed by Damion ESQUEDA, Jared Arceo ([id number]) on 12/05/2016 8:21:09 AM
--- NOTE | 2016-12-05 05:45 | EKG Report ---
Test Performed on : 12/03/2016 8:42:50 PM Test Reason : HYPERGLYCEMIA Blood Pressure : / mmHG Vent. Rate : 085 BPM Atrial Rate : 085 BPM P-R Int : 136 ms QRS Dur : 088 ms QT Int : 320 ms P-R-T Axes : 058 021 149 degrees QTc Int : 380 ms Sinus rhythm. with marked sinus arrhythmia. with occasional premature ventricular complexes. Minimal voltage criteria for LVH, may be normal variant T wave abnormality, consider inferolateral ischemia Abnormal ECG No previous ECGs available Unconfirmed Result
[2016-12-05] MEDS: HUMULIN R SUBQ SCH ×4 (06:24→21:55)
[2016-12-05 06:27] LABS: MANUAL DIFF NEEDED? NO
[2016-12-05 06:40] LABS: BASO% 0.1 % (0.0-0.8); EOS# 0.32 X1000 (0.0-0.7); EOS% 2.1 % (0.0-10.0); HEMOGLOBIN 7.4 g/dL (12.0-16.0); IMM GRAN# 0.07 X1000 (0.0-0.04); IMM GRAN% 0.5 % (0.0-0.5); LYMPH# 3.28 X1000 (1.2-3.4); LYMPH% 21.9 % (20.5-51.1); MCH 25.3 PG (27-31); MCHC 32.2 g/dL (33-37); MCV 78.8 FL (81-99); MONO# 1.57 X1000 (0.11-0.59); MONO% 10.5 % (1.7-9.3); MPV 9.6 FL (7.4-10.4); NEUT% 64.9 % (42.2-75.2); PLT 612 X1000 (130-400); RBC 2.92 XMIL (4.2-5.4)
[2016-12-05] MEDS ORDERED: INSULIN PEN NEEDLES ONE (06:53)
[2016-12-05 07:19] LABS: AGAP 10; ALBUMIN 2.7 g/dL (3.5-5.0); BUN 32 mg/dL (8-22); CALCIUM 10.3 mg/dL (8.8-10.2); CHLORIDE 104 mmol/L (98-107); COSMO 285; MAGNESIUM 1.9 mg/dL (1.5-2.7); POTASSIUM 3.6 mmol/L (3.5-5.1); SODIUM 138 mmol/L (136-145); TCO2 24 mmol/L (25-35)
[2016-12-05] MEDS ORDERED: POTASSIUM PHOSPHATE 40 MMOL in NS 250.0000 ML IV ONE (07:56)
[2016-12-05] MEDS: NS 1,000 ML IV SCH (08:48)
[2016-12-05] MEDS ORDERED: LANTUS SUBQ SCH ×2 (09:00)
--- NOTE | 2016-12-05 11:22 | PROGRESS NOTE ---
DATE: 12/05/2016 SUBJECTIVE: The patient is awake and alert and oriented this morning. Her blood sugars were in the 500s last night after being severely hypoglycemic during the day yesterday. OBJECTIVE: Vital Signs: Temperature 97 degrees, blood pressure 140/48, heart rate 74, respirations 20, O2 saturations 95% on 2 L nasal cannula. General: This is an elderly female, lying in bed, in no acute distress. Heart: S1, S2 normal. Regular rate and rhythm. Lungs: Clear to auscultation bilaterally. No wheezing. No rales. No rhonchi. Abdomen: Positive bowel sounds. Soft, nontender, nondistended. Extremities: No edema. No cyanosis. No calf tenderness. Neurologic: The patient is alert and oriented x3. Labs: White blood cell count 14, hemoglobin 7.4, hematocrit 23, platelets 612,000. Sodium 138, potassium 3.6, chloride 104, CO2 24, BUN 32, creatinine 0.9, glucose 135, calcium 10, phosphorus 1.9. Magnesium 1.9. Albumin 2.7. ASSESSMENT AND PLAN: 1. Suspected gastrointestinal bleed. The patient is scheduled for an EGD today. We will transfuse 1 unit of packed red blood cells today and await the results of endoscopy. 2. Leukocytosis. Improved. So far, the patient's cultures remain negative. Continue on the intravenous antibiotic regimen as directed by Dr. Mason. 3. Anemia of acute blood loss. The patient will be receiving a transfusion today. We will continue to monitor the hemoglobin and hematocrit closely. 4. Metabolic encephalopathy. Resolved. 5. Hypoglycemia with uncontrolled insulin-dependent diabetes mellitus. The patient's long-acting insulin is on hold due to severe hypoglycemia that occurred during the day yesterday. We will continue to monitor the Accu-Cheks every 4 hours. 6. Chronic back pain. The patient is on oxycodone plus Opana as outpatient. These medications are on hold right now. 7. Acute kidney injury. Resolved. 8. Hypertension. Controlled. 9. History of gastric bypass. Aware. 10. Hypothyroidism. We will restart the patient's thyroid medication. cc: Lluvia Kumari MD
[2016-12-05] MEDS ORDERED: DIPRIVAN 1% ONE (12:14)
--- NOTE | 2016-12-05 15:39 | OPERATIVE NOTE ---
PROCEDURE DATE: 12/05/2016 PROCEDURE: Esophagogastroduodenoscopy. PREOPERATIVE DIAGNOSES: 1. Profound anemia, microcytic. 2. Status post gastric bypass surgery. POSTOPERATIVE DIAGNOSES: 1. Marginal ulcers in jejunum, multiple. No stigmata of recent bleed. 2. Evidence of Clay-en-Y gastroenterostomy, gastric bypass surgery. HISTORY: This is a 56-year-old female who has history of gastric bypass surgery, admitted to the hospital after she presented with altered mental status. During investigation, she was found to have profound anemia. She has had a colonoscopy not too long ago by Dr. Kraus. EGD was done to check for upper GI pathology. DESCRIPTION OF PROCEDURE: Informed consent was obtained from the patient. Procedure risks, benefits, and alternatives were explained in layman's terms. She understood and all the pertinent questions answered. The patient was brought to the endoscopy unit and was premedicated as per Anesthesia. After adequate sedation, while she was lying in left lateral position, the gastroscope was introduced into the posterior pharynx and advanced under direct vision into the esophagus. Esophagus in its entire length appeared to be normal. No esophagitis, webs, rings, or varices were seen. The scope was then passed through the esophagus into the stomach. Stomach was examined in both straight and retroflexed view, which revealed evidence of gastrectomy and gastroenterostomy. The patient appears to have had gastric bypass surgery. On the jejunal side, there were marginal ulcers seen. There were 3 ulcers, which were deep, but clean based and punched-out. These ulcers did not have any evidence or stigmata of recent bleed. The ulcers were about 1 cm to 15 mm in longest dimension and the scope could be easily passed through the anastomosis into the jejunum. I was able to advance it all the way as far as I could go, but did not see any evidence of active bleeding there. The scope was then withdrawn. Patient tolerated the procedure well. No complications noted. Patient was then transferred to the recovery area in a stable condition. IMPRESSION: Marginal ulcers of jejunum, status post gastrectomy and gastric bypass surgery. RECOMMENDATION: 1. She will be continued on proton pump inhibitor. I will switch it to p.o. 2. Add Carafate 1 g 3 times a day. 3. Most importantly, she needs to stop smoking. I will see her back in the office after discharge and further plans will be made according to her progress. I would continue her oral iron supplement and the multivitamin, as well. cc: Shashank Gu MD
--- NOTE | 2016-12-05 17:34 | PROGRESS NOTE ---
DATE: 12/05/2016 PRESENT ILLNESS: The patient has a leukocytosis, the etiology of which is uncertain to me. MEDICATIONS: The patient is receiving cefepime. PHYSICAL EXAMINATION: Vital Signs: Temperature is 97.7 degrees, pulse 81, respirations 20, blood pressure 136/62. General: The patient looks chronically ill, but she is in no acute distress. She has had EGD done today which showed the presence of jejunal ulcers. Lungs: Clear to auscultation. Cardiovascular: Heart rate is regular. Abdomen: Soft and nontender. LABORATORY AND X-RAY STUDIES: CBC showed a white count that was 26,000 yesterday. Today the white count 14,980, hemoglobin 7.4 and platelet count is 612,000. Creatinine is 0.9. GFR is greater than 60. Blood cultures are pending. Urine culture is sterile. As mentioned above, the patient had underwent esophagogastroduodenoscopy and jejunal ulcers were found. ASSESSMENT AND PLAN: 1. The patient has his leukocytosis is improving. Its etiology is still uncertain to me. My plan is to continue with cefepime. 2. Comorbidities include the following: She has diabetes mellitus and peripheral vascular disease. cc: Arian Mason MD
[2016-12-05] MEDS: CARAFATE LIQUID PO SCH (18:32)
[2016-12-06] MEDS: CARAFATE LIQUID PO SCH ×5 (00:19→20:23)
[2016-12-06] MEDS: MORPHINE IV PRN ×5 (00:23→22:35)
[2016-12-06] MEDS: MAXIPIME 2 GM/NS 2 GM/100 ML IVPB IV SCH ×2 (03:19→16:28)
[2016-12-06] MEDS: PRILOSEC PO SCH (06:16)
[2016-12-06] MEDS: HUMULIN R SUBQ SCH ×4 (06:31→22:34)
[2016-12-06 06:33] LABS: MANUAL DIFF NEEDED? NO
[2016-12-06 06:49] LABS: BASO% 0.2 % (0.0-0.8); EOS# 0.32 X1000 (0.0-0.7); EOS% 2.6 % (0.0-10.0); HEMATOCRIT 24.8 % (37.0-47.0); HEMOGLOBIN 7.9 g/dL (12.0-16.0); IMM GRAN# 0.05 X1000 (0.0-0.04); IMM GRAN% 0.4 % (0.0-0.5); LYMPH# 2.95 X1000 (1.2-3.4); LYMPH% 24.2 % (20.5-51.1); MCH 25.2 PG (27-31); MCHC 31.9 g/dL (33-37); MCV 79.2 FL (81-99); MONO# 1.53 X1000 (0.11-0.59); MONO% 12.5 % (1.7-9.3); MPV 9.9 FL (7.4-10.4); NEUT% 60.1 % (42.2-75.2); PLT 632 X1000 (130-400); RBC 3.13 XMIL (4.2-5.4)
[2016-12-06 07:22] LABS: AGAP 8; ALBUMIN 2.8 g/dL (3.5-5.0); BUN 15 mg/dL (8-22); CALCIUM 10.2 mg/dL (8.8-10.2); CHLORIDE 104 mmol/L (98-107); COSMO 274; POTASSIUM 3.9 mmol/L (3.5-5.1); SODIUM 136 mmol/L (136-145); TCO2 24 mmol/L (25-35)
[2016-12-06] MEDS: THYROID PO SCH (09:30)
[2016-12-06] MEDS: ICAR-C PLUS PO SCH (09:31)
--- NOTE | 2016-12-06 09:51 | PROGRESS NOTE ---
DATE: 12/06/2016 SUBJECTIVE: She states she is feeling good. She is awake and alert. Still has a Cervantes catheter in. OBJECTIVE: Afebrile. Temperature 97.6 degrees, pulse 92, respirations 16, blood pressure 150/82. CVP less than 6 cm. Lungs are clear in all lung denise. Cardiovascular: Regular rhythm and rate without murmur or S3. Abdomen: Soft. Skin warm and dry. Urine output 3000 mL. LABORATORY DATA: Reviewed from today, white count 12,210, hematocrit 24, platelet count 632,000. Sodium 136, potassium 3.9, chloride 104. Bicarb 24. BUN 15, creatinine 0.8, blood sugar 351, 243, and 118. ASSESSMENT AND PLAN: 1. Patient with leukocytosis, etiology uncertain, receiving cefepime. 2. Diabetes mellitus, type 2. Sugars are followed and appear to be well controlled. 3. Peripheral vascular disease. 4. Dr. Gu has evaluated with an esophagogastroduodenoscopy. She has profound anemia, macrocytic, status post gastric bypass surgery. She has marginal ulcers in the jejunum, multiple. No stigmata of recent bleed. Evidence of Clay-en-Y gastroenterostomy and gastric bypass surgery, so I switched her proton pump inhibitors p.o. and she is on Carafate. She would like to go to rehab at [facility]. We will see if we can get the Cervantes catheter out and get physical therapy to evaluate and see if we can head in that direction. cc: Michael Brooks MD
--- NOTE | 2016-12-06 17:59 | PROGRESS NOTE ---
DATE: 12/06/2016 PRESENT ILLNESS: The patient has a leukocytosis, the etiology of which is uncertain to me. She appears to have responded well to antibiotics in that her white count is coming down. MEDICATIONS: The patient is receiving Cefepime. This is day 2 of the daptomycin. PHYSICAL EXAMINATION: Vital Signs: Temperature is 98.6 degrees, pulse 87, respirations 18, blood pressure 182/76. General: This is a somewhat ill-appearing, middle-aged female. She is in no acute distress. Lungs: Clear to auscultation. Cardiovascular: Regular heart rate. Abdomen: Soft and nontender. Neurologic: The patient is alert. She can move her extremities. There is no tremor. LABORATORY AND X-RAY: There is no new x-ray today. Blood and urine cultures are negative. The patient's CBC showed a white count that previously was 26,000. Today her white count is down to 12,210, hemoglobin 7.9, platelet count 632,000. ASSESSMENT AND PLAN: 1. Patient has a high leukocytosis. It is improving and clinically she is improving as well. My plan is to continue her cefepime hopefully until her white count is normal. 2. Comorbidities include diabetes mellitus and peripheral vascular disease. cc: Arian Mason MD
--- NOTE | 2016-12-06 18:30 | PROGRESS NOTE ---
DATE: 12/06/2016 Patient was seen on 12/06/2016. Patient is resting comfortably. She has just finished her breakfast. She denies any GI symptoms. She is tolerating her diet well. She denies any nausea or vomiting. Has not had any abdominal pain. She denies melena.Vital Signs: Temperature 97.6 degrees, pulse was 92 per minute regular, breathing at rate of 16, blood pressure 153/82. Abdomen: Is full, soft. It is nontender. I could not appreciate any mass or visceromegaly. Bowel sounds are audible. No pedal edema noted. LABS: Reviewed which showed WBC 12.21, hemoglobin 7.9, hematocrit 24.8, MCV 79.2, and platelets were 632. IMPRESSION: 1. Chronic microcytic anemia profound. Improved after blood transfusions. 2. Margin ulcers in the jejunum. 3. Status post gastric bypass surgery. Her microcytic anemia appears to be multiple factors, ulcers and her status post gastric bypass surgeries leading to iron deficiency maybe a few compounding problems. In order for her to heal the marginal ulcer. She needs to stop smoking and I will continue her on proton pump inhibitor, Prilosec 40 mg every day along with Carafate liquid 1 g p.o. 3 times a day and after discharge we will see her back in the office. Further plans and treatment will be made according to her response. In the meantime, she needs to continue oral iron supplements as well as multivitamins. I have explained the finding and plan and she understands. I will be available if needed. Otherwise will see her back in the office after discharge. cc: Shashank Gu MD
[2016-12-06] MEDS: NEURONTIN PO SCH (20:23)
[2016-12-07] MEDS: CARAFATE LIQUID PO SCH ×3 (02:36→13:50)
[2016-12-07] MEDS: MAXIPIME 2 GM/NS 2 GM/100 ML IVPB IV SCH (04:52)
[2016-12-07] MEDS: MORPHINE IV PRN ×2 (04:59→13:53)
[2016-12-07] MEDS: PRILOSEC PO SCH (06:04)
[2016-12-07] MEDS: HUMULIN R SUBQ SCH ×2 (06:05→11:26)
[2016-12-07 06:55] LABS: AGAP 8; ALBUMIN 2.7 g/dL (3.5-5.0); BUN 10 mg/dL (8-22); CALCIUM 10.3 mg/dL (8.8-10.2); CHLORIDE 102 mmol/L (98-107); COSMO 280; POTASSIUM 4.4 mmol/L (3.5-5.1); SODIUM 134 mmol/L (136-145); TCO2 24 mmol/L (25-35)
[2016-12-07 07:39] VITALS: BP 135/60
[2016-12-07] MEDS: ICAR-C PLUS PO SCH (08:28)
[2016-12-07] MEDS: THYROID PO SCH (08:28)
[2016-12-07] MEDS: NEURONTIN PO SCH (08:28)
--- NOTE | 2016-12-07 13:58 | DISCHARGE SUMMARY ---
ADMISSION DATE: 12/03/2016 DISCHARGE DATE: 12/07/2016 DISPOSITION: I think she is going to [facility]. HISTORY OF PRESENT ILLNESS: She was admitted on 12/03/2016. A 56-year-old black female with past medical history of diabetes mellitus type 2, COPD, hypertension, peripheral vascular disease, prior CVA, history of polypharmacy and episodes of overdosing inadvertently. She was brought in by her son, since she left the hospital because she was confused and very drowsy and lethargic. Given 2 mg IV Narcan and became very animated and agitated, no longer hypoxic or lethargic. Since then, she has been hollering and shouting, unable to answer most questions except she would tell me her name. When asked if she was hurting, she kept hollering and was unable to give much history at that time. Unfortunately, her son had left before this, so she was admitted with severe anemia, probably chronic, due to the fact that her vital signs were stable. She had some leukocytosis, and wondered about possible infection and some metabolic encephalopathy. May be due to her hyperglycemia and dehydration. She was put on some insulin sliding scale and given some fluids. Blood pressure was well maintained and she seemed to show steady improvement. She had a CT of her chest and abdomen on 12/04/2016, which did not reveal any pneumonia. There was prominent atherosclerosis. She has a history of gastric bypass and cholecystectomy. Dr. Mason was consulted on 12/04/2016 and felt that most likely the confusion was because her diabetes was out of control and leukocytosis was of uncertain etiology. Put her empirically on IV cefepime and Dr. Gu was consulted on 12/05/2016. Because of the profound anemia, suggested iron deficiency. Hemoccult was positive. Questionable history of chronic GI bleed further complicated by iron malabsorption secondary to gastric bypass surgery. Did not have any signs of overt bleeding. She had an EGD performed per Dr. Gu and found marginal ulcers in the jejunum and multiple stigmata of recent bleed, evidence of Clay-en-Y gastroenterostomy, gastric bypass surgery. She remained stable, felt like she was ready to go to rehab on 12/07/2016. She has chronic microcytic anemia, profound, improved after blood transfusions we gave her, marginal ulcers in the jejunum, and status post gastric bypass surgery. Discharged to [facility] in [place] and stopped her antibiotic. She was on Neurontin 800 mg b.i.d. and she gets Prilosec 40 mg daily, Carafate 1 g 4 times a day, and her thyroid 90 mg p.o. daily. cc: Michael Brooks MD
[2016-12-07] MEDS ORDERED: MORPHINE IV PRN (14:35)
== END 2016-12-07 14:49 ==
LOC: ED 19:55 → SUATTDRO 23:20 → 3N 23:20
PROVIDERS: ATTEND Emergency Medicine

== ENCOUNTER 2019-02-05 10:14 | Inpatient (IN) ==
[2019-02-05] MEDS ORDERED: NS 1,000 ML IV ONE ×2 (10:52→13:32)
[2019-02-05] MEDS ORDERED: HUMULIN R IV ONE (10:52)
[2019-02-05] MEDS ORDERED: NARCAN IV ONE (10:52)
--- NOTE | 2019-02-05 11:08 | Diag Imaging Result Doc PS360 ---
EXAM: CHEST-PORTABLE 02/05/2019 HISTORY: sob TECHNIQUE: AP portable upright at 1049 COMMENT: There is cardiomegaly. There is opacification in the left lower lobe. This has not changed appreciably since 01/24/2019. There is some clearing of the right costophrenic angle compared to the previous study however. IMPRESSION: Left lower lobe pneumonia. Electronically signed by Mehrdad Dela Cruz 02/05/2019 11:06 AM
[2019-02-05 11:19] LABS: ALLEN TEST YES; BE -7.8 mmoll (-3.0-3.0); BLOOD TYPE ARTERIAL; HCO3-(ACT) 18.8 mmoll (20.0-26.0); METHB 0.9 % (0.0-1.5); O2HB 94.6 % (95.0-99.0); PCO2(98.6) 27 mmHg (35-45); PO2(98.6) 86 mmHg (60-100); SAMPLE BLOOD; SAO2 97.2 % (95.0-100.0); THB 11.2 g/dL (11.5-17.4); pH(98.6) 7.38 (7.35-7.45)
[2019-02-05 11:21] LABS: MODALITY ROOM AIR
[2019-02-05 11:40] LABS: URINE SOURCE CLEAN CATCH
[2019-02-05 11:49] LABS: BILIRUBIN URINE NEGATIVE (NEGATIVE); BLOOD URINE TRACE (NEGATIVE); COLOR YELLOW; GLUCOSE URINE >1000 mg/dL (NEGATIVE); KETONE URINE 10 mg/dL (NEGATIVE); LEUKOCYTES URINE NEGATIVE (NEGATIVE); NITRITE URINE NEGATIVE (NEGATIVE); PROTEIN URINE 50 mg/dL (NEGATIVE); SP GRAVITY URINE 1.036; TURBIDITY URINE CLEAR (CLEAR); UROBILINOGEN URINE 3 mg/dL (NORMAL)
[2019-02-05 11:50] LABS: HEMATOCRIT 40.6 % (37.0-47.0); MCH 22.4 PG (27-31); MPV 10.9 FL (7.4-10.4); PLT 302 X1000 (130-400); RDW 21.3 % (11.5-14.5); WBC 15.85 X1000 (4.8-10.8)
[2019-02-05 11:51] LABS: BASO# 0.01 X1000 (0.0-0.2); BASO% 0.1 % (0.0-0.8); EOS# 0.01 X1000 (0.0-0.7); EOS% 0.1 % (0.0-10.0); LYMPH# 0.63 X1000 (1.2-3.4); MONO# 0.68 X1000 (0.11-0.59); MONO% 4.3 % (1.7-9.3); NEUT# 14.52 X1000 (1.4-6.5); NEUT% 91.5 % (42.2-75.2); UR EPITHELIAL CELLS <10 /HPF (<10); URINE BACTERIA NEGATIVE /HPF; URINE RBC <10 /HPF (<10); URINE WBC <10 /HPF (<10)
[2019-02-05 11:55] LABS: INR 1.74; PROTIME 20.7 Seconds (11.0-16.0)
[2019-02-05 12:02] LABS: UR AMPHETAMINES QUAL NONE DETECTED (NONE DETECT); UR BARBITUATES QUAL NONE DETECTED (NONE DETECT); UR BENZODIAZEPIN QUAL NONE DETECTED (NONE DETECT); UR CANNABINOIDS QUAL NONE DETECTED (NONE DETECT); UR COCAINE QUAL NONE DETECTED (NONE DETECT); UR METHADONE QUAL NONE DETECTED (NONE DETECT); UR OPIATES QUAL NONE DETECTED (NONE DETECT); UR OXYCODONE QUAL NONE DETECTED (NONE DETECT); UR PCP QUAL NONE DETECTED (NONE DETECT)
[2019-02-05 12:03] LABS: URINE CASTS NONE SEEN; URINE CRYSTALS NONE SEEN; URINE SMALL ROUND CELLS NONE SEEN; URINE YEAST NONE SEEN
[2019-02-05 12:07] LABS: ACETONE SERUM NEGATIVE (NEGATIVE)
[2019-02-05 12:12] LABS: AGAP 24; ALBUMIN 4.3 g/dL (3.5-5.0); ALKALINE PHOSPHATASE 460 U/L (32-104); BUN 47 mg/dL (8-22); CALCIUM 11.8 mg/dL (8.8-10.2); CHLORIDE 90 mmol/L (98-107); COSMO 302; CREATININE 1.2 mg/dL (0.5-0.9); ESTIMATED GFR 55; GOT 434 U/L (10-30); GPT 286 U/L (10-36); LIPASE 82 U/L (13-60); MAGNESIUM 2.4 mg/dL (1.5-2.7); POTASSIUM 4.8 mmol/L (3.5-5.1); SODIUM 131 mmol/L (136-145); TCO2 17 mmol/L (25-35); TOTAL BILIRUBIN 3.34 mg/dL (0.20-1.00); TOTAL PROTEIN 8.5 g/dL (6.3-8.3)
--- NOTE | 2019-02-05 12:22 | Diag Imaging Result Doc PS360 ---
EXAM: CT HEAD W/O CONTRAST 02/05/2019 HISTORY: ams TECHNIQUE: This exam was performed using automated exposure control, adjustment of mA or kV according to patient size, and/or use of iterative reconstruction technique. COMMENT: There is no evidence of mass effect, bleed, or abnormal extra-axial fluid collection. Compared to 01/02/2019 there has been no significant change. There is some thickening of the calvarium. The visualized paranasal sinuses are clear. IMPRESSION: Stable CT of the head. Electronically signed by Mehrdad Dela Cruz 02/05/2019 12:20 PM
[2019-02-05 12:25] LABS: GLUCOSE 584 mg/dL (70-104)
[2019-02-05] MEDS ORDERED: ROCEPHIN 1 GM in NS 50 ML IV ONE (13:31)
[2019-02-05] MEDS ORDERED: ZITHROMAX 500 MG/NS 500 MG/250 ML IVPB IV ONE (13:31)
--- NOTE | 2019-02-05 14:21 | PROVIDER DOCUMENTATION ---
This chart was entered by Petra Daniels Scribe, acting as scribe for Davidson Doe MD. HPI-General Adult - General Chief Complaint: High Blood Sugar Stated Complaint: lethargic Time Seen by Provider: 02/05/19 10:36 Source: patient, RN/ (RN) Allergies/Adverse Reactions: Patient Allergies Allergy/AdvReac Type Severity Reaction Status Date / Time No Known Allergies Allergy Verified 01/02/19 15:14 Home Medications: Home Medication List Medication Instructions Recorded Confirmed Last Taken Type Clopidogrel Bisulfate [Plavix] 75 mg PO DAILY 12/03/16 03/09/18 03/08/18 History Gabapentin 800 mg PO TID 12/03/16 03/09/18 03/08/18 History Multivit-Min/FA/Lycopen/Lutein 1 tab PO DAILY 12/03/16 03/09/18 03/08/18 History [Centrum Silver Tablet] Sucralfate [Carafate Liquid] 1 gm PO Q6HR #0 udc 12/07/16 03/09/18 03/08/18 Rx Trazodone [Desyrel] 25 mg PO QHS 10/14/17 03/09/18 03/08/18 History Aripiprazole 10 mg PO HS 12/27/17 03/09/18 03/08/18 History Bupropion S.r. [Wellbutrin Sr] 150 mg PO BID 12/27/17 03/09/18 03/08/18 History Digoxin 125 mcg PO DAILY 12/27/17 03/09/18 03/08/18 History Metoprolol Succinate E.r. [Toprol 25 mg PO DAILY 12/27/17 03/09/18 03/08/18 History Xl] Sacubitril/Valsartan [Entresto 24 1 each PO BID 02/01/18 03/09/18 03/08/18 History mg-26 mg Tablet] Aspirin 81 mg pe PO DAILY 02/17/18 03/09/18 03/08/18 History Insulin Glargine [Basaglar] 20 units SQ QHS 02/17/18 03/09/18 03/08/18 History Lansoprazole [Prevacid] 30 mg PO DAILY 02/17/18 03/09/18 03/08/18 History Oxycodone HCl/Acetaminophen 1 each PO TID PRN 02/17/18 03/09/18 03/08/18 History [Percocet 7.5-325 mg Tablet] Spironolactone 25 mg PO DAILY 02/17/18 03/09/18 03/08/18 History Tapentadol HCl [Nucynta] 150 mg PO BID 02/17/18 03/09/18 03/08/18 History Amlodipine [Norvasc] 10 mg PO DAILY #0 tablet 02/20/18 03/09/18 03/08/18 Rx Cinacalcet [Sensipar] 30 mg PO BID tablet 02/20/18 03/09/18 03/08/18 Rx Clopidogrel [Plavix] 75 mg PO DAILY tablet 02/20/18 03/09/18 03/08/18 Rx Digoxin [Lanoxin] 125 microgm PO DAILY tablet 02/20/18 03/09/18 03/08/18 Rx Lactulose 15 ml PO DAILY udc 02/20/18 03/09/18 03/08/18 Rx Thyroid 75 mg PO DAILY@0700 tablet 02/20/18 03/09/18 03/08/18 Rx Vortioxetine Hydrobromide 5 mg PO DAILY #0 02/20/18 03/09/18 03/08/18 Rx [Trintellix] - History of Present Illness -Gen Adult Nature of Presenting Problems: Patient is a 58 year old female who presents to the ED via EMS for elevated blood sugar. RN states EMS stated patient's FSBS was greater than 500. RN states patient was lethargic on arrival to the ED. Patient denies pain. Location of Pain/Injury: reports: none Pain Radiation: reports: no radiation Quality of Pain: reports: none Severity: reports: mild Onset/Duration: reports: just prior to arrival Timing: reports: improving Associated Symptoms: reports: other (AMS - lethargic) Similar Symptoms Previously?: No Recently seen or treated by another doctor?: Yes - Diabetes Related Context Context: reports: high blood sugar Review of Systems - Adult - REVIEW OF SYSTEMS - ADULT ROS:: limited per condition Constitutional: reports: no symptoms reported Eyes: reports: no symptoms reported Ears, Nose, Mouth & Throat: reports: no symptoms reported Cardiovascular: reports: no symptoms reported Respiratory: reports: no symptoms reported Gastrointestinal: reports: no symptoms reported Genitourinary: reports: no symptoms reported Musculoskeletal: reports: no symptoms reported Integumentary: reports: no symptoms reported Neurological: reports: no symptoms reported Psychiatric: reports: no symptoms reported Endocrine: reports: no symptoms reported Hematologic/Lymphatic: reports: no symptoms reported Allergic/Immunologic: reports: no symptoms reported All Other Systems: Reviewed and Negative Past History - Adult - PAST MEDICAL HISTORY-ADULT Review of Records: reports: Old Records Reviewed, Social history reviewed & non- contributory. Major Childhood Illnesses: reports: denies history Cardiovascular: reports: CHF, HTN, hyperlipidemia Respiratory: reports: denies history Gastrointestinal: reports: denies history Obstetrical/Gynecological: reports: denies history Genitourinary: reports: denies history Musculoskeletal: reports: chronic pain (back), intervertebral disc disease, other (neuropathy) Neurological: reports: CVA Endocrine/Immune: reports: Diabetes, thyroid disorder (hypo) Other Conditions: reports: denies history, cataract/glaucoma - PRIOR SURGERIES/PROCEDURES Surgical/Procedure History: reports: cholecystectomy, hysterectomy, BTL, other (nodules, cataract, stent R leg) - PRIOR HOSPITALIZATIONS Prior Hospitalizations: reports: for other non-related - IMMUNIZATION STATUS Childhood Immunizations: See Nurse Assessment Flu Vaccine: See Nurse Assessment - FAMILY HISTORY Family History: reviewed, not pertinent - SOCIAL HISTORY Smoking: cigarettes (former) Substance Use: denies Physical Exam-General - PHYSICAL EXAM-ADULT Initial Vital Signs Reviewed: Yes - CONSTITUTIONAL General Appearance: alert, no apparent distress, other (ill in appearance). negative: obese, obtunded - EYES Eyes: photophobia, scleral icterus, other (pupils 3 mm bilateral. reactive to light.). negative: subconjunctival hemorrhage - HEAD, EARS, NOSE, MOUTH & THROAT HENMT: normocephalic/atraumatic, other (dry mucous membranes. mild facial edema) . negative: hearing deficit - RESPIRATORY Respiratory: chest non-tender, lungs clear, normal breath sounds. negative: crackles, wheezing - CARDIOVASCULAR Cardiovascular: normal peripheral pulses, tachycardia, systolic murmur (2/6 murmur at left sternal border). negative: extra beats - GASTROINTESTINAL (ABDOMEN) Abdominal Exam: normal bowel sounds, non tender, soft. negative: guarding, rigid - MUSCULOSKELETAL Extremity: non-tender, other (4 + pitting edema to bilateral lower extremities up to mid thigh.). negative: deformity, erythema - SKIN Integumentary: normal color, normal turgor, warm/dry. negative: diaphoresis, ecchymosis, rash - NEUROLOGIC Neurologic: grossly normal. negative: aphasia, facial droop - PSYCHIATRIC Psych/Mental Status: normal mood/affect. negative: anxious, paranoid Progress - PLAN OF CARE/RESULTS Progress/Plan/Lab Results: Orders Category Date Time Status Finger Stick Blood Sugar (ED) DIRECTED Care 02/05/19 10:36 Active [facility] Insertion ORDERED Care 02/05/19 10:51 Active Nursing- Obtain EKG once Care 02/05/19 10:36 Active Saline Loc NOW Care 02/05/19 10:36 Active CHEST-PORTABLE [RAD] Stat Exams 02/05/19 10:[address] HEAD W/O CONTRAST [CT] Stat Exams 02/05/19 10:51 Ordered ABG [RESP] Routine Lab 02/05/19 10:37 Ordered ACETONE SERUM [CHEM] Stat Lab 02/05/19 10:37 Uncollected AMMONIA [CHEM] Stat Lab 02/05/19 10:51 Uncollected CBC WITH ELECTRONIC DIFF [HEME] Stat Lab 02/05/19 10:37 Uncollected COMPREHENSIVE METABOLIC PANEL [CHEM] Stat Lab 02/05/19 10:37 Uncollected LIPASE [CHEM] Stat Lab 02/05/19 10:51 Uncollected MAGNESIUM [CHEM] Stat Lab 02/05/19 10:37 Uncollected PRO B-NATRIURETIC PEPTIDE Stat Lab 02/05/19 10:37 Uncollected PROTIME WITH INR [COAG] Stat Lab 02/05/19 10:37 Uncollected TROPONIN T Stat Lab 02/05/19 10:37 Uncollected TSH Stat Lab 02/05/19 10:37 Ordered URINALYSIS W/POSS RFLX CULT [URINALYSIS] Stat Lab 02/05/19 10:37 Uncollected URINE DRUG SCREEN Stat Lab 02/05/19 10:51 Uncollected phos [PHOSPHORUS] [CHEM] Stat Lab 02/05/19 10:51 Uncollected 0.9% Sodium Chloride Inj [Ns] 1,000 ml Med 02/05/19 10:52 Active IV 999 mls/hr Insulin Human Regular [Humulin R] Med 02/05/19 10:52 Discontinued 10 unit IV NOW ONE Naloxone [Narcan] Med 02/05/19 10:52 Discontinued 0.4 mg IV NOW ONE EKG [EKG] Stat Ther 02/05/19 10:37 Ordered Result Diagrams: 02/05/19 11:28 02/05/19 11:28 - REASSESSMENT Reassessment #1 Time Reassessed: 14:18 Status: improving (Given IVF, insulin, IV rocephin and zithromax for CAP pneumonia. Patient has sepsis) Reassessment Comment: old records reviewed, no recent admissions - XRAY 1 XRAY Study: Chest Impression: See EMR Report ( EXAM: CHEST-PORTABLE 02/05/2019 HISTORY: sob TECHNIQUE: AP portable upright at 1049 COMMENT: There is cardiomegaly. There is opacification in the left lower lobe. This has not changed appreciably since 01/24/2019. There is some clearing of the right costophrenic angle compared to the previous study however. IMPRESSION: Left lower lobe pneumonia. Electronically signed by Mehrdad Dela Cruz 02/05/2019 11:06 AM 02/05/19 1106 Interpreting Physician: Mehrdad Dela Cruz MD Dictated Date/Time: 02/05/19 1056 cc: Davidson Doe MD; Patrick Shea MD) - CT/MRI 1 CT Study: Head Impression: See EMR Report ( Signed EXAM: CT HEAD W/O CONTRAST 02/05/2019 HISTORY: ams TECHNIQUE: This exam was performed using automated exposure control, adjustment of mA or kV according to patient size, and/or use of iterative reconstruction technique. COMMENT: There is no evidence of mass effect, bleed, or abnormal extra-axial fluid collection. Compared to 01/02/2019 there has been no significant change. There is some thickening of the calvarium. The visualized paranasal sinuses are clear. IMPRESSION: Stable CT of the head. Electronically signed by Mehrdad Dela Cruz 02/05/2019 12:20 PM 02/05/19 1220 Interpreting Physician: Mehrdad Dela Cruz MD Dictated Date/Time: 02/05/19 1219 cc: Davidson Doe MD; Patrick Shea MD) - CONSULTS/PCP/HOSPITALIST Notification #1 *Consult/PCP/Hospitalist*: CURRY Herrera Time Discussed: 14:19 Consult Disposition: Will see in ED Departure - Departure Date of Disposition Decision: 02/05/19 Time of Disposition Decision: 14:19 DIAGNOSIS: Type 2 diabetes mellitus with hyperglycemia, with long-term current use of insulin Sepsis Qualifiers: Sepsis acute organ dysfunction status: with acute organ dysfunction Severe sepsis acute organ dysfunction type: encephalopathy Severe sepsis shock status: without septic shock CHF (congestive heart failure) Qualifiers: Heart failure type: combined systolic and diastolic Heart failure chronicity: acute on chronic Qualified Code(s): I50.43 - Acute on chronic combined systolic (congestive) and diastolic (congestive) heart failure Community acquired pneumonia Qualifiers: Laterality: left Lung location: upper lobe of lung Qualified Code(s): J18.1 - Lobar pneumonia, unspecified organism Disposition: ADMITTED INPATIENT 09 Certified Medical Emergency: Emergent Condition: Fair Referrals and Follow-Ups: Patrick Shea MD [Primary Care Provider] - - Critical Care Note This patient required my direct & personal management of CC.: Yes Total Time (mins): 40 (evaluation and tx of sepsis, r/o DKA, pne< AMS) Critical Care Statement: This patient required my direct personal management to treat or rule out processes, the absence of which, could potentiallly result in sudden, clinically significant life or limb threatening deterioration. Attestation - Physician/ RONALDO Attestation Patient care was provided by Advanced Practice Provider:: No The physician spent face to face time with patient:: Yes Advanced Practice Provider documentation review:: Supervising physician onsite and consulted in the evaluation and care of this patient. The physician did have a face to face encounter with the patient. This chart was documented by the indicated scribe, (Petra Daniels Scribe) and accurately reflects the services I performed and decisions made by , Davidson Doe MD, as attested by the provider's signature.
[2019-02-05] MEDS ORDERED: NS 1,000 ML IV SCH (16:15)
[2019-02-05] MEDS ORDERED: HUMULIN R 100 UNIT in NS 100 ML IV SCH (16:30)
[2019-02-05] MEDS: ZOSYN 3.375 GM in NS 50 ML IV SCH (17:29)
[2019-02-05] MEDS: ZYVOX 600 MG/D5W 600 MG/300 ML IVPB IV SCH (17:30)
[2019-02-05] MEDS ORDERED: ZOFRAN IV PRN (17:46)
[2019-02-05] MEDS ORDERED: POTASSIUM CHLORIDE 20% LIQUID PO PRN (19:30)
[2019-02-05] MEDS ORDERED: D5 NS 1,000 ML IV SCH (19:30)
[2019-02-05] MEDS ORDERED: POTASSIUM CHLORIDE 40 MEQ/SWI 40 MEQ/100 ML IVPB IV PRN (19:30)
[2019-02-05] MEDS ORDERED: SODIUM PHOSPHATE 30 MMOL in D5W 250 ML IV PRN (19:30)
[2019-02-05] MEDS ORDERED: POTASSIUM CHLORIDE 10% LIQUID PO PRN (19:30)
[2019-02-05] MEDS ORDERED: SODIUM BICARBONATE 8.4% 100 MEQ in STERILE WATER INJ. 500 ML IV PRN (19:30)
[2019-02-05] MEDS ORDERED: MAGNESIUM SULFATE 2 GM/S.W.I. 2 GM/50 ML IVPB IV PRN (19:30)
[2019-02-05] MEDS: HEPARIN SUBQ SCH (20:24)
[2019-02-05] MEDS: ENTRESTO 24 MG-26 MG TABLET PO SCH (20:48)
[2019-02-05 21:49] LABS: CALCIUM 9.9 mg/dL (8.8-10.2); CREATININE 1.2 mg/dL (0.5-0.9); MAGNESIUM 2.1 mg/dL (1.5-2.7); PHOSPHORUS 3.7 mg/dL (2.7-4.5); POTASSIUM 4.4 mmol/L (3.5-5.1)
[2019-02-06] MEDS: ZOSYN 3.375 GM in NS 50 ML IV SCH ×2 (00:19→06:34)
[2019-02-06] MEDS: POTASSIUM CHLORIDE 20 MEQ/SWI 20 MEQ/100 ML IVPB IV PRN ×2 (00:27→04:50)
--- NOTE | 2019-02-06 02:40 | HISTORY AND PHYSICAL ---
CHIEF COMPLAINT: High blood sugar and lethargy. HISTORY OF PRESENT ILLNESS: This is a 58-year-old female with a history of diabetes mellitus, coronary artery disease, hypertension, primary hyperparathyroidism with nonischemic dilated cardiomyopathy with an ejection fraction of 15%. She presented to the emergency room via EMS after being lethargic with blood sugars greater than 500 per their fingerstick. Her fingerstick on arrival to the emergency room was 500 with her 1st blood drawl being 584. At the time of the exam the patient is lethargic and slow to answer questions, with no complaints other than "I just feel bad." She was given a 2 L bolus in the emergency room along with 10 units of regular insulin, and she is being admitted for further evaluation and treatment. PAST MEDICAL HISTORY: Diabetes mellitus type 2 with noncompliance, hypertension, coronary artery disease, hypothyroid, hypoparathyroidism. PAST SURGICAL HISTORY: Coronary stents, hysterectomy, gastric bypass. ALLERGIES: No known drug allergies. HOME MEDICATIONS: A list will be obtained by the nursing staff, once verified and review restart as appropriate. SOCIAL HISTORY: Unable to obtain from the patient. According to the chart there is no history of alcohol or illicit drug use. ALLERGIES: According to the chart no known drug allergies. REVIEW OF SYSTEMS: Unable to obtain at present. PHYSICAL EXAMINATION: GENERAL: This is a 58-year-old woman who is lying on a stretcher in the emergency room in no distress. She is lethargic. VITAL SIGNS: Blood pressure is 142/86, with a heart rate of 94, respirations are 18, temperature 98.7 degrees, O2 saturations are running 97% to 100% on room air. EYES: Pupils are 3 mm bilateral, reactive to light. Sclerae are icterus. HEENT: Head is normocephalic, atraumatic. Mucous membranes are dry. NECK: Supple. Trachea midline. CARDIOVASCULAR: Regular rate and rhythm. She is tachycardic. S1 and S2 appreciated. She does have a 1 to 2/6 murmur heard best at the left sternal border. Bilateral lower extremity edema is noted up to mid thigh with peripheral pulses palpable. PULMONARY: Breath sounds are clear with no increased work of breathing noted. Chest rises and falls with symmetric respiration. GASTROINTESTINAL: Abdomen is soft, nontender and nondistended with bowel sounds in all 4 quadrants. SKIN: Warm and dry.. NEUROLOGIC: She is lethargic. LABORATORY DATA: WBC is 15, with hemoglobin 13, hematocrit 40.6, and platelets of 302,000. Sodium 131, potassium 4.8, BUN 47, creatinine 1.2, with a glucose of 584, total bilirubin is 3.3, AST 434, ALT 286, alkaline phosphatase 460. She does have a troponin is 0.132, with a proBNP of 10,680. Lipase is 82. Urine drug screen reveals none detective automobile section with acetone negative. Blood cultures are pending . CT of the head reveals stable CT. No evidence of mass effect, bleed or abnormal extra-axial fluid collection. Chest x-ray reveals left lower lobe pneumonia. ASSESSMENT AND PLAN: 1. Sepsis secondary to left lower lobe pneumonia. Blood cultures have been obtained. We will cover her with antibiotic coverage of linezolid and Zosyn, and further antibiotics will be culture driven. 2. Congestive heart failure. Her last EF was 15%, this was in 2018. She has had 2 L of fluid bolus in the emergency room. Gentle hydration NS 50ml/hr for hyperglycemia. 3. Diabetes mellitus type 2 with hyperglycemia. 4. Hyperglycemic hyperosmolar nonketotic. She will be placed in ICU. We will place her on a DKA protocol without using the large amounts of fluid. 5. Acute kidney injury. hydrate and trend her labs and renal dose medications as appropriate. 6. Hyponatremia. We will continue with the saline and recheck labs in the morning. 7. Elevated liver function tests. The patient is jaundiced at present. We will get an abdominal ultrasound as well as a hepatitis profile, and repeat labs in the morning. 8. Elevated troponin. This is very likely secondary to sepsis and her blood sugar. We will trend troponins as well as cardiac profiles. 9. For DVT prophylaxis we will use SCDs, for GI prophylaxis Prilosec. 10. Further treatments pending hospital course. Plan was discussed with Dr. Veliz. Patient seen and examined by me face to face, all the laboratory, vitals signs and images were reviewed, patient presented to the emergency department with altered mental status, I am not sure how long she has been having this problem, she is not able to provide any kind of reliable information, she is lethargic, no family members at the bedside, she is septic due to left sided pneumonia, also she is hyperglycemic, she seems to be remarkably seek at this moment, given her low EF we will be careful with fluid management, she will go to the Unit, I will start her on insulin drip, , I agree with the SHIPWR[employer] APPRENTICE's assessment and plan, Sanjeev Jacobson MD. Dictated by CURRY Whitfield for Sanjeev Pierson MD cc: CURRY Whitfield MD [facility]
[2019-02-06] MEDS: ZYVOX 600 MG/D5W 600 MG/300 ML IVPB IV SCH ×2 (04:06→17:27)
[2019-02-06 04:07] LABS: CALCIUM 10.4 mg/dL (8.8-10.2); CREATININE 1.2 mg/dL (0.5-0.9); PHOSPHORUS 2.5 mg/dL (2.7-4.5); POTASSIUM 4.3 mmol/L (3.5-5.1)
[2019-02-06 05:06] LABS: ALLEN TEST YES; BE -6.7 mmoll (-3.0-3.0); BLOOD TYPE ARTERIAL; HCO3-(ACT) 19.7 mmoll (20.0-26.0); METHB 0.9 % (0.0-1.5); O2(CT) 14.6 mL/dL (15.0-23.0); O2HB 96.5 % (95.0-99.0); PCO2(98.6) 22 mmHg (35-45); PO2(98.6) 135 mmHg (60-100); SAMPLE BLOOD; SAO2 98.9 % (95.0-100.0); THB 10.6 g/dL (11.5-17.4); pH(98.6) 7.46 (7.35-7.45)
[2019-02-06 05:07] LABS: MODALITY CANNULA
[2019-02-06 05:08] LABS: ALB/GLOB RATIO 1.2; DIRECT BILIRUBIN 1.1 mg/dL (0.00-0.20); TOTAL BILIRUBIN 1.54 mg/dL (0.20-1.00); TOTAL PROTEIN 5.5 g/dL (6.3-8.3)
[2019-02-06 05:34] LABS: BASO# 0.01 X1000 (0.0-0.2); BASO% 0.1 % (0.0-0.8); EOS# 0.01 X1000 (0.0-0.7); EOS% 0.1 % (0.0-10.0); HEMATOCRIT 30.5 % (37.0-47.0); HEMOGLOBIN 10.1 g/dL (12.0-16.0); IMM GRAN# 0.07 X1000 (0.0-0.04); IMM GRAN% 0.4 % (0.0-0.5); LYMPH# 1.16 X1000 (1.2-3.4); LYMPH% 6.7 % (20.5-51.1); MCH 22.3 PG (27-31); MCHC 33.1 g/dL (33-37); MCV 67.5 FL (81-99); MONO# 1.46 X1000 (0.11-0.59); MONO% 8.4 % (1.7-9.3); MPV 11.2 FL (7.4-10.4); NEUT# 14.58 X1000 (1.4-6.5); NEUT% 84.3 % (42.2-75.2); PLT 195 X1000 (130-400); RBC 4.52 XMIL (4.2-5.4); RDW 18.9 % (11.5-14.5); WBC 17.29 X1000 (4.8-10.8)
[2019-02-06 06:08] LABS: ANISOCYTOSIS 1+; LYMPHS 6 % (21-51); MONO 8 % (1-9); SEGS 86 % (42-75)
[2019-02-06] MEDS: THYROID PO SCH (06:26)
[2019-02-06] MEDS ORDERED: NS 1,000 ML IV ONE (07:04)
--- NOTE | 2019-02-06 07:18 | Diag Imaging Result Doc PS360 ---
EXAM: CHEST-PORTABLE INDICATION: dyspnea TECHNIQUE: One view COMPARISON: 02/05/2019 FINDINGS: The left lower lobe opacity is unchanged. No new consolidation is identified. Cardiac silhouette is stable. IMPRESSION: Stable chest. Electronically signed by Shayne Estes 02/06/2019 7:16 AM
[2019-02-06] MEDS: HEPARIN SUBQ SCH ×2 (08:05→20:41)
[2019-02-06] MEDS: NS 1,000 ML IV SCH ×2 (08:06→17:31)
[2019-02-06] MEDS ORDERED: PRILOSEC PO SCH (09:00)
[2019-02-06] MEDS: MAXIPIME 2 GM in NS 100 ML IV SCH ×2 (09:10→20:42)
[2019-02-06] MEDS: ASPIRIN PO SCH (09:14)
[2019-02-06] MEDS: ENTRESTO 24 MG-26 MG TABLET PO SCH ×2 (09:15→20:48)
[2019-02-06] MEDS: LANOXIN PO SCH (09:15)
[2019-02-06] MEDS: PLAVIX PO SCH (09:15)
[2019-02-06] MEDS: TOPROL XL PO SCH (09:16)
[2019-02-06] MEDS ORDERED: NS 250 ML ONE (09:47)
--- NOTE | 2019-02-06 10:03 | Diag Imaging Result Doc PS360 ---
CHEST-PORTABLE - 02/06/2019 9:41 AM INDICATION: PNA COMPARISON: 02/06/2019 5:34 AM FINDINGS: Stable pacemaker. Stable mild cardiomegaly. Stable significant retrocardiac opacification of the left lung base. There may be some faint hazy infiltrate in the medial right lung base as well. No new infiltrates. IMPRESSION: No change from prior. Electronically signed by Roger Whiteside 02/06/2019 10:00 AM
[2019-02-06 10:06] LABS: INR 2.38; PROTIME 26.6 Seconds (11.0-16.0)
[2019-02-06 10:07] LABS: PTT 31.3 Seconds (22.3-41.8)
[2019-02-06] MEDS: D50W SYRINGE IV PRN (10:10)
[2019-02-06 10:25] LABS: CALCIUM 9.9 mg/dL (8.8-10.2); CREATININE 1.4 mg/dL (0.5-0.9); POTASSIUM 3.8 mmol/L (3.5-5.1)
--- NOTE | 2019-02-06 10:58 | PROGRESS NOTE ---
DATE: 02/06/2019 SUBJECTIVE: This patient has been placed in the ICU, she is remarkably sick, blood sugar is better controlled, her lactate level increased, his urine output is low around 200 mL in the past 8 hours. She does have severe heart failure, her last echocardiogram done on 01/08/2019 showed an ejection fraction around 15% with also moderate reduction in the right ventricular systolic function. This patient came in with left lower lobe pneumonia, confusion, leukocytosis, multiorgan failure including kidney, liver, initially she had an episode of hypotension as well. She responded to fluids and the blood pressure has been stable since yesterday. She is still confused. The lactate level increased from 3.6 to 604. I have requested an evaluation by Infectious Disease Department, LFTs are getting better, I will give her 1 more L of fluid and I have increased the basal normal saline rate. OBJECTIVE: Vital Signs: Temperature 96.7 degrees, pulse 114, respiratory rate 19, blood pressure 120/85. Oxygen saturation 98 on 2 L of nasal cannula. HEENT: Head normocephalic. No trauma. Neck: Supple. No JVD. Central trachea. Chest: Some crepitus at the bases. Decreased breath sounds at the bases as well. Abdomen: Soft, nontender, nondistended. Bowel sounds present. Neurological: She is lethargic. She is disoriented. She is not following commands. LABORATORY: WBC 17.2, hemoglobin 10.1, hematocrit 30.5, platelets 195,000. Sodium 135, potassium 4.3, chloride 101, bicarbonate 16, BUN 47, creatinine 1.2, glucose 285, calcium 10.4, phosphorus 2.5, total bilirubin 1.5, AST 396, ALT 226, alkaline phosphatase 284, and albumin 3. ASSESSMENT AND PLAN: 1. Sepsis with multiorgan failure due to left lower lobe pneumonia, blood culture has been obtained. Urinalysis looks good, I will continue with Zosyn and linezolid. Infectious Disease Department has been consulted. We will continue with IV fluids but I will increase the rate and I will bolus this patient also. She seems to be a little bit fluid depleted again. 2. Severe congestive heart failure with her last ejection fraction around 15% with also diastolic dysfunction. She received a couple L of fluids in the emergency department. I also will continue with gentle IV fluids throughout the night. I will bolus her with 1 more liter. Chest x-ray did not show any evidence of pulmonary edema that she seems to be a little bit intravascularly depleted, urine output decreased as well. 3. Uncontrolled type 2 diabetes with hyperglycemia. Acetone level is negative. There is a possibility of hyperglycemic-hyperosmolar nonketotic state. I will continue with insulin drip. I will monitor this patient closely. Blood sugar seems to be better. 4. Acute kidney injury. Continue with IV fluids. Urine output is low around 25 mL/h, 200 mL in the past 8 hours. We will continue with fluids. 5. Hyponatremia. This is getting better. Continue with normal saline. 6. Elevated LFTs, probably secondary to severe dehydration and shock liver. I requested ultrasound and also an hepatitis profile. LFTs are better like I mentioned before. 7. Elevated troponin likely secondary to sepsis, but she seems to be remarkably sick to any kind of procedure. 8. Deep vein thrombosis prophylaxis with Sequential Compression Device due to her liver failure and the possibility of coagulopathy, I will ask for PT, PTT, INR. This patient seems to be remarkably sick. We will continue with IV fluids, but we need to be careful because of her low ejection fraction, she is tachycardic and she is having low temperature. She has multiorgan failure, but the blood pressure has been responding to IV fluids. I asked the nurse to communicate with the family to let them know that she is hospitalized and also I would like to talk to them. cc: Sanjeev Pierson MD
[2019-02-06 14:46] LABS: CREATININE 1.2 mg/dL (0.5-0.9); POTASSIUM 3.8 mmol/L (3.5-5.1)
[2019-02-06 14:47] LABS: ALB/GLOB RATIO 0.9; ALBUMIN 2.7 g/dL (3.5-5.0); CALCIUM 10.1 mg/dL (8.8-10.2); TOTAL BILIRUBIN 1.52 mg/dL (0.20-1.00); TOTAL PROTEIN 5.6 g/dL (6.3-8.3)
[2019-02-06] MEDS: HUMULIN R SUBQ SCH ×2 (15:30→20:43)
--- NOTE | 2019-02-06 15:38 | INFECTIOUS DISEASE CONSULT REP ---
DATE: 02/06/2019 CONCLUSION: This 58-year-old female is admitted to the hospital with a left lower lobe pneumonia. She is unable to provide a history and no family member is present. RECOMMENDATIONS: I agree with treating the patient with Zyvox and I have substituted cefepime for Zosyn. DISCUSSION: As mentioned above, the patient is unable provide a history. No family member is present. According to the information in the computer, the patient came to the emergency room and said that she felt bad. She was found to have her diabetes out of control. The patient's chest x- ray shows a left lower lobe opacity. CT scan of the head is negative. Blood cultures are pending. [place] [id number], hemoglobin 10.1, platelet count 195,000. Blood gases showed a pH of 7.46, a PO2 of 135, and a pCO2 of 22, creatinine is 1.2. GFR is 55. The urinalysis showed no white cells or bacteria. The patient's drug screen was negative. PAST MEDICAL HISTORY: Positive for diabetes mellitus. The patient is not compliant with her diabetes. She also has hypertension, coronary artery disease, hypothyroidism, and in 1 place of the history and physical it said the patient has hyperparathyroidism and in the other 1 it says hypoparathyroidism. I think what the what the disease is hyperparathyroidism. PAST SURGICAL HISTORY: Positive for coronary artery stents, hysterectomy, and gastric bypass. ALLERGIES: None listed. HOME MEDICATIONS: The home medications include Norvasc, aripiprazole, Wellbutrin, Sensipar, Plavix, digoxin, gabapentin, insulin, Prevacid, metoprolol, Oxycodone, Entresto, spironolactone, sucralfate, Nucynta, thyroid, Desyrel and finally Trintellix. PHYSICAL EXAMINATION: Vital Signs: Temperature is 97.4 degrees, pulse 114, respirations 19, blood pressure 120/85. Patient is 5 feet 5 inches tall, weighs 164 pounds. General: This is an obese, middle-aged female. She is in no acute distress. Head/eyes/ears/nose/throat: She appears to be able to see near objects. She could hear my spoken words. The patient does not have a tremor. She did move her arms and legs to request. Integument: The patient on the dorsum of her foot had a black rash. Neurologic: The patient's eyes are open. She did follow request to move her extremities. She did not answer a question. Thank you for the consult. cc: Arian Mason MD
--- NOTE | 2019-02-06 15:43 | Diag Imaging Result Doc PS360 ---
EXAM: US ABDOMEN-COMPLETE - 02/06/2019 HISTORY: elevated lfts TECHNIQUE: Ultrasound abdomen COMPARISON: None. FINDINGS: The technologist indicates that the patient was not able to fully cooperate during scanning. The gallbladder surgically absent. The common bile duct is normal caliber at 3 mm. Visualized portions of the pancreas are unremarkable. There is no discrete liver abnormality identified. Doppler image shows hepatopedal flow in the portal vein. The spleen is low normal in size. There is no ascites identified. There is apparent left pleural effusion noted. The right kidney measures 11.5 x 5.7 x 4.8 cm in size, with cortical thickness of approximately 1 cm. The left kidney measures 11.9 x 5 x 6 cm in size, with cortical thickness of approximately 1.2 cm. The renal cortices appear mildly echodense diffusely, which can be seen with medical renal disease. There is no focal renal abnormality identified. Abdominal aorta and IVC appear normal caliber. There are apparent atheromatous changes noted in the aorta. IMPRESSION: Status post cholecystectomy. Normal caliber common bile duct at 3 mm. No visible liver abnormality. Low normal splenic size. Apparent left pleural effusion. Mildly echogenic renal cortices which can be seen with medical renal disease. The kidneys are normal size, however. Electronically signed by Carlitos Serrano 02/06/2019 3:41 PM
[2019-02-07] MEDS: ZYVOX 600 MG/D5W 600 MG/300 ML IVPB IV SCH ×2 (03:38→17:03)
[2019-02-07] MEDS: NS 1,000 ML IV SCH ×3 (03:38→16:29)
[2019-02-07 04:26] LABS: ALLEN TEST YES; BE -5.5 mmoll (-3.0-3.0); BLOOD TYPE ARTERIAL; HCO3-(ACT) 20.6 mmoll (20.0-26.0); METHB 0.2 % (0.0-1.5); O2HB 97.2 % (95.0-99.0); PCO2(98.6) 23 mmHg (35-45); PO2(98.6) 119 mmHg (60-100); SAMPLE BLOOD; SAO2 98.9 % (95.0-100.0); THB 10.8 g/dL (11.5-17.4); pH(98.6) 7.47 (7.35-7.45)
[2019-02-07 04:27] LABS: MODALITY CANNULA
[2019-02-07 05:28] LABS: BASO# 0.01 X1000 (0.0-0.2); BASO% 0.1 % (0.0-0.8); HEMATOCRIT 31.8 % (37.0-47.0); HEMOGLOBIN 10.4 g/dL (12.0-16.0); MCH 22.1 PG (27-31); MCHC 32.7 g/dL (33-37); MCV 67.5 FL (81-99); PLT 162 X1000 (130-400); RBC 4.71 XMIL (4.2-5.4); RDW 19.6 % (11.5-14.5); WBC 15.09 X1000 (4.8-10.8)
[2019-02-07 05:31] LABS: INR 2.25; PROTIME 25.4 Seconds (11.0-16.0)
[2019-02-07 05:44] LABS: ALB/GLOB RATIO 0.8; ALBUMIN 2.4 g/dL (3.5-5.0); CALCIUM 10.5 mg/dL (8.8-10.2); CREATININE 1.4 mg/dL (0.5-0.9); MAGNESIUM 1.9 mg/dL (1.5-2.7); PHOSPHORUS 2.6 mg/dL (2.7-4.5); TOTAL BILIRUBIN 1.83 mg/dL (0.20-1.00); TOTAL PROTEIN 5.6 g/dL (6.3-8.3)
[2019-02-07] MEDS: HUMULIN R SUBQ SCH ×4 (06:28→20:48)
[2019-02-07] MEDS: THYROID PO SCH (06:30)
[2019-02-07 06:49] LABS: LYMPHS 6 % (21-51); MONO 6 % (1-9); NRBC 1 % (0-0); SEGS 86 % (42-75)
--- NOTE | 2019-02-07 06:58 | PULMONOLOGY CONSULTATION ---
DATE: 02/06/2019 REQUESTING PHYSICIAN: Dr. Veliz. REASON FOR CONSULTATION: Hypoxemic respiratory failure and sepsis. HISTORY OF PRESENT ILLNESS: Ms. French is a 58-year-old black female who was brought to the emergency room with lethargy and a blood glucose greater than 500. The patient has a history of diabetes, coronary artery disease, nonischemic cardiomyopathy, and chronic pain syndrome. By report, she was recently transitioned off of her pain medicines to Suboxone. Family reports she has not done well for the last several days; therefore, she was brought to the emergency room. The patient is a difficult historian. She will follow simple commands, but will not answer questions. Nursing intake indicates dementia as a component of her illness. PAST MEDICAL HISTORY: 1. Diabetes mellitus. 2. Chronic pain syndrome. 3. Coronary artery disease. 4. Hypertension. 5. Dyslipidemia. 6. Hypothyroidism. 7. Hyperparathyroidism. 8. Status post cardiac stent placement. 9. Status post gastric bypass. 10. Status post hysterectomy. 11. Peripheral vascular disease with angioplasty to the right leg. SOCIAL HISTORY: Nursing intake reports patient was a former smoker. Amount not listed. No alcohol use listed. REVIEW OF SYSTEMS: Limited as patient is essentially nonverbal. PHYSICAL EXAMINATION: General: Reveals a well-developed female resting comfortably and in no distress. Vital signs: The patient has been afebrile since her hospital. stay. Blood pressure 132/95, heart rate 110, respiratory rate 12, oxygen saturation 92%. HEENT: Pupils are equal and reactive. Oropharynx appears clear. Neck: Supple. Chest: Reveals decreased breath sounds left base. Cardiac: S1, S2. Abdomen: Soft and without hepatosplenomegaly. Extremities: Reveal trace edema. LABORATORIES: Blood cultures are pending. White blood count 17.29, hemoglobin 10.1, platelet count a 195,000. Arterial blood gas earlier this morning revealed a pH 7.46, pCO2 of 22, PO2 of 135, with a lactate of 6.4. Lactate at 2 p.m. this afternoon was 3.5. IMPRESSION: 1. A 58-year-old with problems outlined above, who presents with altered mental status. 2. Acute hypoxemic respiratory failure. 3. Lactic acidosis. 4. Left lower lobe pneumonia. 5. Hyperglycemia. 6. Nonischemic cardiomyopathy. PLAN: 1. Agree with ICU monitoring. Her illness pathway is not yet clear. 2. Agree with broad spectrum antibiotics as outlined by Infectious Disease. 3. Continue oxygen, keep saturation greater than 90%. Consider BiPAP if necessary. 4. Continue bronchial hygiene. 5. Continue p.r.n. insulin. 6. Overall prognosis is guarded. cc: Lucas Graves MD
--- NOTE | 2019-02-07 07:37 | Diag Imaging Result Doc PS360 ---
CHEST-PORTABLE - 02/07/2019 INDICATION: abnormal exam COMPARISON: 02/06/2019 FINDINGS: There is a new right PICC line with the catheter tip at the cavoatrial junction. Stable pacemaker. Stable significant cardiomegaly. Pulmonary vascularity is top normal. Grossly stable hazy infiltrate throughout the left lung. Stable patchy infiltrate or atelectasis at the right lung base. No definite pulmonary edema. IMPRESSION: New PICC line. Otherwise no change from prior. Electronically signed by Roger Whiteside 02/07/2019 7:34 AM
[2019-02-07] MEDS: SODIUM CHLORIDE 0.9% INJ SCH (07:47)
[2019-02-07] MEDS: PROTONIX IV SCH (07:47)
[2019-02-07] MEDS: MAXIPIME 2 GM in NS 100 ML IV SCH ×2 (07:47→20:49)
--- NOTE | 2019-02-07 08:13 | PROGRESS NOTE ---
DATE: 02/07/2019 SUBJECTIVE: This patient is still lying comfortably in bed. She is not complaining of pain. She seems to be more awake. She is following commands on and off. She is able to say her name, but she is still confused. She is tachycardic. Blood pressure has been stable. I will try to put an NG tube so we can start feeding this patient and give her p.o. medications. I will get an EKG as well. Chest x-ray showed a stable patchy infiltrate or atelectasis at the right lung base, new PICC line but no change from prior. OBJECTIVE: VITAL SIGNS: Temperature 97.6 degrees, pulse 110, respiratory rate 12, blood pressure 125/100, oxygen saturation 100% on 2 liters of nasal cannula. HEENT: Normocephalic, atraumatic. PERRLA. Icteric sclerae. NECK: Supple. No JVD. Central trachea. CHEST: Some crepitus at the bases. Decreased breath sounds at the bases as well. Rhonchi at the level of the left lower lobe. ABDOMEN: Soft, nontender, nondistended. Positive bowel sounds. NEUROLOGICAL: She is sleepy but arousable. She is oriented x1. She is following commands on and off. She seems to be more awake compared with yesterday. LABORATORY DATA: WBC 15, hemoglobin 10.4, hematocrit 31.8, platelets 162,000. Sodium 142, potassium 4, chloride 108, bicarbonate 19, BUN 43, creatinine 1.4. Glucose 194. Calcium 10.5, magnesium 1.9. AST 504, ALT 270, alkaline phosphatase 307, albumin 2.4. ASSESSMENT AND PLAN: 1. Sepsis with multiorgan failure due to left lower lobe pneumonia. Blood culture negative so far. Urinalysis looks good. I will continue to follow the recommendations of Infectious Disease Department. Her blood pressure has been stable. She is still tachycardic though. Continue with IV fluids. No signs of pulmonary edema at this point, but she came in severely dehydrated. 2. Severe CHF with her last ejection fraction around 15% with also diastolic dysfunction. Continue with gentle IV fluids. We will continue to monitor this patient in the ICU. She will receive her p.o. medications. 3. Acute hypoxemic respiratory failure. Continue with oxygen supplementation, BiPAP as needed. Pulmonary on board. 4. Uncontrolled type 2 diabetes with hyperglycemia. Acetone level was negative. I will continue with sliding scale insulin, pattern her blood sugar. Seems to be better. 5. Acute kidney injury. Continue with IV fluids. Creatinine increased a little bit compared with yesterday. 6. Hyponatremia, resolved but upon admission, her blood sugar was really high so probably that was related to serial hyponatremia. 7. Elevated LFTs, probably secondary to severe dehydration and shock liver. Ultrasound did not show an obstruction or abnormality at this moment. 8. Elevated troponin, likely secondary to sepsis. She seems to be remarkably sick to any kind of procedure at this moment. I have requested an EKG. 9. DVT prophylaxis with SCDs. She is coagulopathic. I have stopped the heparin. She seems to be remarkably sick. No new changes compared with yesterday. We will continue to monitor this patient in the ICU. Her prognosis is guarded. Critical care time 40 minutes. cc: Sanjeev Pierson MD
--- NOTE | 2019-02-07 08:59 | Diag Imaging Result Doc PS360 ---
CHEST-PORTABLE - 02/07/2019 INDICATION: Verify NG placement COMPARISON: 02/07/2019 FINDINGS: There is a nasogastric tube in good position the stomach. IMPRESSION: Nasogastric tube in good position in the stomach. Electronically signed by Roger Whiteside 02/07/2019 8:57 AM
[2019-02-07] MEDS: LANOXIN PO SCH (09:52)
[2019-02-07] MEDS: PLAVIX PO SCH (09:53)
[2019-02-07] MEDS: TOPROL XL PO SCH (09:53)
[2019-02-07] MEDS: ENTRESTO 24 MG-26 MG TABLET PO SCH (09:53)
[2019-02-07] MEDS: ASPIRIN PO SCH (09:53)
--- NOTE | 2019-02-07 14:52 | EKG Report ---
Test Performed on : 02/07/2019 07:46:25 AM Test Reason : Elevated troponin Blood Pressure : / mmHG Vent. Rate : 112 BPM Atrial Rate : 112 BPM P-R Int : 138 ms QRS Dur : 084 ms QT Int : 332 ms P-R-T Axes : 069 019 178 degrees QTc Int : 453 ms Sinus tachycardia. Possible Left atrial enlargement Low voltage QRS Nonspecific T wave abnormality Abnormal ECG When compared with ECG of 24-JAN-2019 18:38, (Unconfirmed) No significant change was found Confirmed by Ines ESQUEDA, Merritt Mendoza ([id number]) on 02/08/2019 8:27:24 AM
[2019-02-07] MEDS: ALBUMIN 25% IV SCH (17:26)
--- NOTE | 2019-02-07 21:05 | PULMONOLOGY PROGRESS NOTE ---
DATE: 02/07/2019 SUBJECTIVE: The patient is arousable to awake. She does answer questions, but in a delayed fashion. OBJECTIVE: The patient has been afebrile for the last 24 hours. Blood pressure 133/91, heart rate 107, respiratory rate 14, oxygen saturation 100% on 2 L per nasal cannula.HEENT: Pupils are equal and reactive. Oropharynx appears clear. Neck: Supple. Chest: Occasional rhonchi bilaterally. Cardiac: S1-S2. Abdomen: Soft and without hepatosplenomegaly. Extremities: Without edema. LABORATORY AND DIAGNOSTIC DATA: Chest x-ray reveals mild infiltrate in the left lung with atelectasis at the right lung base. Arterial blood gas reveals pH 7.47, pCO2 of 23, PO2 of 119, with a lactate of 2.8. All cultures are negative to date. IMPRESSION: A 58-year-old with: 1. Pneumonia. 2. Acute hypoxemic respiratory failure. 3. Resolving lactic acidosis. 4. Nonischemic cardiomyopathy. 5. Encephalopathy with marginal improvement. PLAN: 1. Continue ICU monitoring. 2. Continue broad-spectrum antibiotics. 3. Continue bronchial hygiene. 4. Consider transfer to the floor if her adult mental status continues to improve. 5. Check mineral levels on a patient with gastric bypass and altered mental status. cc: Lucas Graves MD
--- NOTE | 2019-02-07 21:59 | NEPHROLOGY CONSULTATION ---
DATE: 02/07/2019 REASON FOR CONSULTATION: Oliguria. HISTORY OF PRESENT ILLNESS: Ms. French is a very unfortunate 58-year-old woman. She has diabetes, hypertension and hyperparathyroidism. She has coronary disease and cardiomyopathy, with LVEF of 15% one year ago. She is spontaneously awake, but she is not really able to answer any of my questions, and so the questions are answered primarily by the nursing staff. They relate recent history of changes in her narcotic management and excessive use of narcotics at home. She was found unresponsive by her son, and therefore brought into the hospital for evaluation. Her initial evaluation in the ER found her hypertensive and tachycardic, with normal blood pressure. Her initial laboratory data disclosed marked hyperglycemia with an elevated anion gap acidosis. She was treated aggressively for this problem, and her anion gap is down to 15. Creatinine has risen from 1.2 to 1.4, but her urine output has been falling despite positive fluid balance. To this point she is net positive 4.8 L. She also has acute liver injury. PAST MEDICAL HISTORY: As above. MEDICATIONS: Home medications include digoxin, metoprolol, Entresto, lansoprazole, aspirin, clopidogrel, thyroid. ALLERGIES: None. SOCIAL HISTORY: As above. FAMILY HISTORY: Otherwise noncontributory. REVIEW OF SYSTEMS: Otherwise noncontributory. PHYSICAL EXAMINATION: Blood pressure 134/94, heart rate 110, respirations 14. Afebrile. Generally, no acute distress. Skin is warm and dry. Conjunctivae are pale. Oropharynx is clear. Neck veins are not visible. PMI is displaced and enlarged. Auscultation demonstrates a regular rhythm without any audible gallops. Lungs have equal breath sounds. No crackles. Abdomen soft, nontender. No organomegaly or masses. Extremities have 2+ edema. There is a hyperpigmented rash on the right leg that the staff states has been present since admission. Neurologic exam: Again, she is awake and alert but is not able to answer verbally. IMPRESSION AND PLAN: Oliguria. Minimal change in her BUN and creatinine. She does have a falling albumin. I agree that further crystalloid is not likely to be helpful, and I will decrease this dose. I will give albumin over the next 2-3 days and observe her response to this. I will stop her Entresto in the acute setting. Further recommendations based on her clinical response. cc: Remi Zabala MD [facility]
[2019-02-08 00:27] LABS: URINE SOURCE CATH
[2019-02-08 00:33] LABS: BILIRUBIN URINE SMALL (NEGATIVE); BLOOD URINE LARGE (NEGATIVE); COLOR YELLOW; GLUCOSE URINE NEGATIVE (NEGATIVE); KETONE URINE TRACE mg/dL (NEGATIVE); LEUKOCYTES URINE MODERATE (NEGATIVE); NITRITE URINE NEGATIVE (NEGATIVE); PH URINE 5.5; PROTEIN URINE 200 mg/dL (NEGATIVE); SP GRAVITY URINE 1.034; TURBIDITY URINE HAZY (CLEAR); UROBILINOGEN URINE 2 mg/dL (NORMAL)
[2019-02-08 00:45] LABS: UR EPITHELIAL CELLS <10 /HPF (<10); URINE BACTERIA NEGATIVE /HPF; URINE RBC TNTC /HPF (<10); URINE WBC TNTC /HPF (<10)
[2019-02-08 00:53] LABS: URINE CASTS NONE SEEN; URINE CRYSTALS NONE SEEN; URINE SMALL ROUND CELLS NONE SEEN; URINE YEAST PRESENT
[2019-02-08 01:21] LABS: UR CREAT RANDOM 10.6 mg/dL (11-20)
[2019-02-08 01:24] LABS: UR PROT RANDOM 4.1 mg/dL
[2019-02-08] MEDS: ZYVOX 600 MG/D5W 600 MG/300 ML IVPB IV SCH ×2 (03:28→16:26)
[2019-02-08 04:25] LABS: ALLEN TEST YES; BE -6.1 mmoll (-3.0-3.0); BLOOD TYPE ARTERIAL; HCO3-(ACT) 20.2 mmoll (20.0-26.0); METHB 0.8 % (0.0-1.5); O2(CT) 13.6 mL/dL (15.0-23.0); O2HB 96.2 % (95.0-99.0); PCO2(98.6) 23 mmHg (35-45); PO2(98.6) 107 mmHg (60-100); SAMPLE BLOOD; SAO2 98.1 % (95.0-100.0); THB 9.9 g/dL (11.5-17.4); pH(98.6) 7.46 (7.35-7.45)
[2019-02-08 04:27] LABS: MODALITY CANNULA
[2019-02-08] MEDS: HUMULIN R SUBQ SCH ×4 (06:17→23:03)
[2019-02-08 06:26] LABS: BASO# 0.01 X1000 (0.0-0.2); BASO% 0.1 % (0.0-0.8); HEMATOCRIT 28.9 % (37.0-47.0); HEMOGLOBIN 9.5 g/dL (12.0-16.0); MCH 22.1 PG (27-31); MCHC 32.9 g/dL (33-37); MCV 67.4 FL (81-99); PLT 121 X1000 (130-400); RBC 4.29 XMIL (4.2-5.4); RDW 19.2 % (11.5-14.5); WBC 12.35 X1000 (4.8-10.8)
[2019-02-08] MEDS: PROTONIX IV SCH (06:33)
[2019-02-08 06:38] LABS: ESTIMATED GFR > 60
[2019-02-08 06:49] LABS: AGAP 17; ALB/GLOB RATIO 1.2; ALKALINE PHOSPHATASE 390 U/L (32-104); BUN 42 mg/dL (8-22); CALCIUM 11.1 mg/dL (8.8-10.2); CHLORIDE 106 mmol/L (98-107); COSMO 288; CREATININE 1.1 mg/dL (0.5-0.9); GLUCOSE 132 mg/dL (70-104); GOT 322 U/L (10-30); GPT 214 U/L (10-36); POTASSIUM 3.5 mmol/L (3.5-5.1); SODIUM 138 mmol/L (136-145); TCO2 15 mmol/L (25-35); TOTAL BILIRUBIN 2.01 mg/dL (0.20-1.00); TOTAL PROTEIN 5.6 g/dL (6.3-8.3)
[2019-02-08 07:14] LABS: LYMPHS 18 % (21-51); MONO 2 % (1-9); NRBC 4 % (0-0); SEGS 78 % (42-75)
[2019-02-08] MEDS: MAXIPIME 2 GM in NS 100 ML IV SCH ×2 (07:43→19:54)
--- NOTE | 2019-02-08 07:43 | Diag Imaging Result Doc PS360 ---
CHEST-PORTABLE - 02/08/2019 INDICATION: dyspnea COMPARISON: 02/07/2019 FINDINGS: Stable pacemaker. Stable cardiomegaly. Stable partial opacification of the left lung base. Stable infiltrate throughout the left lung. No definite pulmonary edema. IMPRESSION: No change from prior. Electronically signed by Roger Whiteside 02/08/2019 7:40 AM
[2019-02-08] MEDS: THYROID PO SCH (07:46)
--- NOTE | 2019-02-08 08:25 | PROGRESS NOTE ---
DATE: 02/08/2019 SUBJECTIVE: This patient is lying comfortably in bed. She is not complaining of pain. She seems to be a little bit more awake. She is not following commands for me today. She is able to say her name. She is still confused. She is not oriented to time or place. She is still tachycardic. Blood pressure has been stable. I will increase the rate of the feeding tube. No big changes on the x-ray. Nephrology Department on board. She is still remarkably sick. Will need to continue taking care of this patient in the intensive care unit. OBJECTIVE: Vital Signs: Temperature 97.7 degrees, pulse 112, respiratory rate 29, blood pressure 141/103, oxygen saturation 97% on 2 L of nasal cannula. HEENT: Head normocephalic. No trauma. PERRLA. Neck: Supple. No JVD. No masses. Central trachea. Chest: Some crepitus at the bases. Decreased breath sounds at the bases as well. Rhonchi at the level of the left lower lobe. Abdomen: Soft, nontender, nondistended. Positive bowel sounds. Extremities: Her right foot is cold, but no cyanosis. Neurologic: She seems to be more awake. She is oriented to person, but she is not following commands today for me. She is still confused. I am not sure if she has any focal neurological motor deficits. LABORATORY DATA: WBC 12.3, hemoglobin 9.5, hematocrit 28.9, platelets 121,000. Sodium 138, potassium 3.5, chloride 106, bicarbonate 15, BUN 42, creatinine 1.1, glucose 132, calcium 1.1. AST 322, ALT 214, alkaline phosphatase 390, albumin 3. ASSESSMENT AND PLAN: 1. Sepsis with multiorgan failure due to left lower lobe pneumonia. Blood culture negative so far. Urinalysis looks good. I will continue with antibiotics per Infectious Disease Department. Her blood pressure has been stable. She is still tachycardic. Continue with respiratory treatment as well. No signs of big pulmonary edema at this point. She came in severely dehydrated. 2. Severe congestive heart failure with her last ejection fraction around 15% with also diastolic dysfunction. Continue with gentle intravenous fluids. I will continue following the recommendations of Nephrology Department regarding her intravenous fluids. We will continue to monitor this patient in the intensive care unit. She will receive most of her oral medication through the nasogastric tube. 3. Acute hypoxemic respiratory failure. Continue with oxygen supplementation. Bilevel positive airway pressure as needed. Pulmonary on board. 4. Uncontrolled type 2 diabetes with hyperglycemia. Acetone level was negative. I will continue with sliding scale insulin and pattern of blood sugar. This seems to be better controlled. 5. Acute kidney injury. Her urine output decreased compared with yesterday. Nephrology Department on board. She is getting albumin as well, and I have increased the rate of the nasogastric tube/tube feeding. 6. Hyponatremia, resolved. Likely also related to pseudohyponatremia. 7. Elevated liver function tests, probably secondary to severe dehydration and shock liver. Ultrasound did not show any obstruction or abnormality at this point. 8. Elevated troponin, likely secondary to sepsis. She seems to be remarkably sick still to do any kind of procedure at this moment. 9. Deep vein thrombosis prophylaxis with sequential compression devices. She is coagulopathic. Heparin has been stopped. Coagulopathy likely due to hepatic injury and sepsis. 10. Thrombocytopenia. Will monitor for now. We will monitor for the possibility of disseminated intravascular coagulation. We may need to request an evaluation by Hematology/Oncology Department if the platelet count drops even more. This patient is remarkably sick. No family member is at the bedside. The nurse has informed the family about her whole situation. Nephrology Department, Pulmonary Department, and Infectious Disease Department on board. Her mental status is a little bit better compared with admission, but she is still confused. She is not following commands. She is only oriented to person. CRITICAL CARE TIME: 40 minutes. cc: Sanjeev Pierson MD
[2019-02-08] MEDS: PLAVIX PO SCH (09:34)
[2019-02-08] MEDS: ASPIRIN PO SCH (09:35)
[2019-02-08] MEDS: LANOXIN PO SCH (09:35)
[2019-02-08] MEDS: TOPROL XL PO SCH (09:35)
[2019-02-08] MEDS: ALBUMIN 25% IV SCH (10:28)
--- NOTE | 2019-02-08 15:31 | PULMONOLOGY PROGRESS NOTE ---
DATE: 02/08/2019 SUBJECTIVE: The patient is intermittently attentive this morning. She is slow to follow commands. OBJECTIVE: Vital Signs: The patient has been afebrile for the last 24 hours. Blood pressure 144/99, heart rate 110 respiratory rate 21 oxygen percent on 2 L per nasal cannula. HEENT: Pupils are equal and reactive. Oropharynx is clear. Neck is supple. Chest reveals crackles at the left base. Cardiac exam S1-S2. Abdomen is protuberant and soft. Extremities are consistent with chronic vascular disease. LABORATORIES: Sodium 138, potassium 3.5, chloride 106, bicarbonate 15, BUN 42, creatinine 1.1, glucose 132, calcium is elevated at 11.1, bilirubin 2.0. AST 322, ALT 314, alkaline phosphatase 390. Chest x-ray reveals cardiomegaly with stable infiltrate in the left lung. Microbiology reveals no new data. Arterial blood gas reveals a pH 7.46, pCO2 of 23, pO2 107 with a lactate of 4. IMPRESSION: A 58-year-old with: 1. Pneumonia. 2. Acute hypoxemic respiratory failure. 3. Fluctuating lactic acidosis. 4. Nonischemic cardiomyopathy. 5. Encephalopathy. 6. Hypercalcemia. RECOMMENDATIONS: 1. Continue current antibiotic regimen. 2. Continue bronchial hygiene. 3. Continue oxygen for hypoxemic respiratory failure. 4. Check a PTH level then consider treatment for calcium. It will be difficult to hydrate and diurese given her oliguria. 5. Prognosis guarded. cc: Lucas Graves MD
[2019-02-09] MEDS: ZYVOX 600 MG/D5W 600 MG/300 ML IVPB IV SCH (03:35)
[2019-02-09 04:52] LABS: BASO# 0.01 X1000 (0.0-0.2); BASO% 0.1 % (0.0-0.8); HEMATOCRIT 28.6 % (37.0-47.0); MCH 22.2 PG (27-31); MCHC 31.5 g/dL (33-37); MCV 70.6 FL (81-99); PLT 107 X1000 (130-400); RBC 4.05 XMIL (4.2-5.4); RDW 20.7 % (11.5-14.5); WBC 16.57 X1000 (4.8-10.8)
[2019-02-09 05:08] LABS: PTT 39.3 Seconds (22.3-41.8)
[2019-02-09 05:10] LABS: INR 3.17; PROTIME 33.4 Seconds (11.0-16.0)
[2019-02-09 05:14] LABS: LYMPHS 5 % (21-51); MONO 3 % (1-9); SEGS 92 % (42-75)
[2019-02-09 05:19] LABS: ALB/GLOB RATIO 1.2; ALBUMIN 3.1 g/dL (3.5-5.0); CALCIUM 11.3 mg/dL (8.8-10.2); CREATININE 1.3 mg/dL (0.5-0.9); MAGNESIUM 1.9 mg/dL (1.5-2.7); POTASSIUM 4.2 mmol/L (3.5-5.1); TOTAL BILIRUBIN 3.79 mg/dL (0.20-1.00); TOTAL PROTEIN 5.7 g/dL (6.3-8.3)
[2019-02-09] MEDS: HUMULIN R SUBQ SCH ×4 (06:06→20:13)
[2019-02-09] MEDS: PROTONIX IV SCH (06:06)
[2019-02-09] MEDS: THYROID PO SCH (06:06)
--- NOTE | 2019-02-09 07:03 | Diag Imaging Result Doc PS360 ---
CHEST-PORTABLE - 02/09/2019 INDICATION: dyspnea COMPARISON: 02/08/2019 FINDINGS: Stable nasogastric tube in the stomach. Stable right PICC line in good position. Stable pacemaker. Stable cardiomegaly and pulmonary vascular congestion. Stable retrocardiac consolidation or effusion at the left lower lobe. Stable hazy infiltrates elsewhere suggesting mild pulmonary edema. IMPRESSION: No change from prior. Electronically signed by Roger Whiteside 02/09/2019 7:01 AM
[2019-02-09] MEDS: MAXIPIME 2 GM in NS 100 ML IV SCH ×2 (08:21→19:28)
[2019-02-09] MEDS: TOPROL XL PO SCH (09:51)
[2019-02-09] MEDS: LANOXIN PO SCH (09:51)
[2019-02-09] MEDS: ASPIRIN PO SCH (09:51)
[2019-02-09] MEDS: PLAVIX PO SCH (09:51)
[2019-02-09] MEDS: ALBUMIN 25% IV SCH (09:51)
[2019-02-09] MEDS: SENSIPAR PO SCH ×2 (10:36→20:13)
[2019-02-09] MEDS ORDERED: SODIUM BICARBONATE 8.4% IV ONE (12:41)
[2019-02-09] MEDS ORDERED: VANCOMYCIN IV PER PHARMACY MISC SCH (12:45)
[2019-02-09 13:05] LABS: ALLEN TEST YES; BE -7.7 mmoll (-3.0-3.0); BLOOD TYPE ARTERIAL; HCO3-(ACT) 18.9 mmoll (20.0-26.0); METHB 0.8 % (0.0-1.5); O2HB 95.8 % (95.0-99.0); PCO2(98.6) 24 mmHg (35-45); PO2(98.6) 95 mmHg (60-100); SAMPLE BLOOD; SAO2 98.9 % (95.0-100.0); THB 8.8 g/dL (11.5-17.4); pH(98.6) 7.42 (7.35-7.45)
[2019-02-09 13:08] LABS: MODALITY ROOM AIR
--- NOTE | 2019-02-09 14:30 | PROGRESS NOTE ---
DATE: 02/09/2019 SUBJECTIVE: The patient is very sedated. She does awaken but does not really track or anything from that perspective. OBJECTIVE: Vital signs: Blood pressure is 130/95, heart rate of 97, respiratory rate of 19, temp afebrile at 98.6 currently. Cardiovascular: Regular rate and rhythm. Pulmonary: Diminished at the bases. GI: Soft, nontender, nondistended. Extremities: Her right lower extremity is pulseless in the dorsalis pedis and posterior tibialis. Apparently could Doppler pulses previously but not now. She has ischemic toes on her right foot, in first, second, third, and dorsum of her foot. LABORATORY DATA: White count 16, hemoglobin and hematocrit 9 and 28, platelets are down to 107. INR is 3. Creatinine 1.3. Sugar 251. Calcium has steadily risen up to 11.3. T. bilirubin is up to 3.8, AST and ALT are 271 and 188. PTH is elevated at a level of 310, that is in the face of an elevated calcium level. I do not have a phosphorus level, but I am going to repeat those labs tomorrow. PROBLEM LIST: 1. At least forefront today is acute limb ischemia which may be due to hypoperfusion or thrombosis, unclear. She really needs invasive angiography, that is usually what is indicated in acute limb ischemia but with her creatinine, will monitor. I put in a vascular consult and arterial Doppler. I am a little hesitant to start heparin in the setting of her profound thrombocytopenia, rapidly developing thrombocytopenia and her coagulopathy which is likely due to DIC. Obviously this is not going to be very good long-term for her. 2. Coagulopathy which may be due to sepsis, hard to say at this point. She has liver dysfunction as well which may be from hypoperfusion. Very difficult situation, but I am not entirely sure what we are going to do with her as far as that is concerned. We got Hematology/Oncology to come. We will evaluate for DIC with D-dimer and fibrinogen, treat fibrinogen if it is low with cryoprecipitate and follow. She has a fairly significant coagulopathy and it is difficult to figure out if this is a vitamin K issue, a difficult situation as far as that is concerned. I am not sure if she would benefit from vitamin K versus TTP. She is not clearly bleeding. We need to make sure she does not have a thrombosis though I think before we necessarily initiate TTP. I am not sure if she has been exposed to heparin type products, but we will follow. 3. Hypercalcemia. That seems to be steadily increasing. It does look like, based on the testing, that it is primary hyperparathyroidism which may be causing a lot of her issues, so we will follow closely. I am going to repeat her PTH. At this point, I am leery of starting bisphosphonates but if her levels continue to climb, we will have to do that. 4. Thrombocytopenia which has been progressive, probably due to DIC. She is on cefepime. She is on Zyvox. I am a little concerned about Zyvox maintenance with her counts dropping. I have switched her to vancomycin but I will discuss with Dr. Mason, because apparently he is involved in the case, about adjusting her antibiotics or not adjusting her antibiotics. 5. Acute liver injury which is progressive, unclear though if this is hemolysis versus other. 6. Disposition. Patient is critically ill. We will continue to follow. She has several consultants obviously on board during this case. So we will continue to follow closely. cc: Chapo Gomes MD [place]
[2019-02-09] MEDS ORDERED: VANCOMYCIN 1.6 GM in NS 250 ML IV ONE (16:00)
--- NOTE | 2019-02-09 17:00 | INFECTIOUS DISEASE PROGRESS NO ---
DATE: 02/09/2019 PRESENT ILLNESS: The patient is being treated for possible pneumonia. There appears to be a component also of pulmonary vascular congestion. MEDICATIONS: This is day 4 of treatment with a combination of Zyvox and cefepime. PHYSICAL EXAMINATION: Vital Signs: Temperature is 99 degrees, pulse 97, respirations 19, blood pressure 130/95. General: This is an obese, middle-aged female. She is in no acute distress. Head/eyes/ears/nose/throat: She does not have any drainage from her nose or ears. I could not get a good look into her mouth. Neck: There was no stiffness. Lungs: Clear to auscultation. Cardiovascular: Heart rate is regular. Abdomen: Soft and did not appear to be tender. Neurologic: The patient is lethargic. She has her eyes closed. She did not respond to verbal stimuli. There is no tremor. LAB AND X-RAY: Chest x-ray shows bilateral vascular congestion and infiltrate in the left lower lobe. The creatinine is 1.3. GFR is 51. CBC shows a white count of 16,570, hemoglobin 9, and platelet count 107,000. ASSESSMENT AND PLAN: The patient I think has pneumonia most likely in the left lower lobe. There does seem to be a component of pulmonary venous congestion. My plan would be to continue current antibiotics and I have ordered a procalcitonin level. COMORBIDITIES: She is a diabetic and she has coronary artery disease. cc: Arian Mason MD
--- NOTE | 2019-02-09 17:22 | NEPHROLOGY PROGRESS NOTE ---
DATE: 02/09/2019 SUBJECTIVE: Patient remains obtunded in bed. OBJECTIVE: Vital Signs: Temperature 98.6 degrees, pulse 108 respiratory rate 19, blood pressure 130/95. Intake 1.9 L. Output 410 mL. She is now is 7.6 L positive over the course of the hospitalization. HEENT: Normocephalic, atraumatic. Conjunctivae are pale. Her oral mucosa appears dry. She has a NG tube noted to the right nare. Neck: Supple. She has no JVD in a reclined position. Cardiovascular: With a regular rate and rhythm without gallop. Respiratory: She is clear bilaterally. She has decreased breath sounds and effort. Abdomen: Hypoactive, positive bowel sounds. : Cervantes catheter. Extremities: She has 1+ upper and lower extremity edema. She does have wrist restraints noted. Integumentary: Skin is warm and dry. LAB DATA: WBC of 16.5, hemoglobin 9.0 sodium 139, potassium 4.2, CO2 11 creatinine 1.3. ASSESSMENT AND PLAN: Oliguria. Renal function remains unchanged over the weekend. She continues to receive albumin. Her urine output has improved over the last 24 hours. Her most recent albumin level is 3.1. Hypercalcemia. Discussed with Dr. Graves. We added Sensipar. rg Dictated by CURRY Peoples for Remi Zabala MD Face to face encounter, data reviewed, discussed with Susu Guerra on 02/09/19. I agree with the above assessment and plan of care. jamel cc: Remi Zabala MD [facility]
--- NOTE | 2019-02-09 19:06 | PULMONOLOGY PROGRESS NOTE ---
DATE: 02/09/2019 SUBJECTIVE: The patient will open her eyes to stimulation. She attempts to speak but not in full sentences. OBJECTIVE: Vital Signs: The patient has been afebrile for the last 24 hours. Blood pressure 130/95, heart rate 108, respiratory rate 19, oxygen saturation 96 on 2 L per nasal cannula. HEENT: Pupils are equal and reactive. Oropharynx appears clear. Neck: Supple. Chest: Reveals occasional rhonchi bilaterally. Cardiovascular: S1-S2. Abdomen: Obese and soft. Extremities: Reveal trace edema. LABORATORIES: Chest x-ray reveals cardiomegaly, vascular congestion with effusions/consolidation left base. White blood count 16.6, hemoglobin 9.0. Platelet count 107,000. Sodium 139, potassium 4.2, chloride 105 bicarbonate 11, BUN 46, creatinine 1.3, calcium 11.3 with albumin 3.1. PTH intact 310. IMPRESSION: A 58-year-old with: 1. Pneumonia. 2. Hypoxemic respiratory failure. 3. Lactic acidosis. 4. Nonischemic cardiomyopathy. 5. Increased anion gap acidosis. 6. Encephalopathy. 7. Hypercalcemia. The patient's corrected calcium level is 12.3. DISCUSSION: A 58-year-old with problems outlined above. She is not thriving. She does have significant hypercalcemia which may or may not be playing a role in her current presentation. Ideally, this could be corrected with fluid and diuresis, but that will be difficult with her nonischemic cardiomyopathy. It is not clear whether this is primary or secondary given her gastric bypass history. I have discussed the case with Dr. Zabala. He thought that it would be reasonable for a trial of Sensipar in an attempt to decrease her calcium level. PLAN: 1. Continue antibiotic regimen. 2. Continue bronchial hygiene. 3. Initiate trial of Sensipar. 4. Prognosis is guarded. cc: Lucas Graves MD
[2019-02-10 05:01] LABS: EOS# 0.01 X1000 (0.0-0.7); EOS% 0.1 % (0.0-10.0); HEMATOCRIT 28.2 % (37.0-47.0); HEMOGLOBIN 9.2 g/dL (12.0-16.0); IMM GRAN# 0.06 X1000 (0.0-0.04); IMM GRAN% 0.4 % (0.0-0.5); LYMPH# 1.51 X1000 (1.2-3.4); LYMPH% 10.6 % (20.5-51.1); MCH 22.3 PG (27-31); MCHC 32.6 g/dL (33-37); MCV 68.3 FL (81-99); MONO# 1.21 X1000 (0.11-0.59); MONO% 8.5 % (1.7-9.3); NEUT# 11.45 X1000 (1.4-6.5); NEUT% 80.4 % (42.2-75.2); PLT 117 X1000 (130-400); RBC 4.13 XMIL (4.2-5.4); RDW 19.8 % (11.5-14.5); WBC 14.24 X1000 (4.8-10.8)
[2019-02-10 05:27] LABS: AGAP 16; ALB/GLOB RATIO 1.5; ALBUMIN 3.4 g/dL (3.5-5.0); ALKALINE PHOSPHATASE 362 U/L (32-104); BUN 50 mg/dL (8-22); CALCIUM 11.3 mg/dL (8.8-10.2); CHLORIDE 107 mmol/L (98-107); COSMO 310; CREATININE 1.1 mg/dL (0.5-0.9); ESTIMATED GFR > 60; GLUCOSE 340 mg/dL (70-104); GOT 138 U/L (10-30); GPT 148 U/L (10-36); POTASSIUM 4.2 mmol/L (3.5-5.1); SODIUM 142 mmol/L (136-145); TCO2 19 mmol/L (25-35); TOTAL PROTEIN 5.6 g/dL (6.3-8.3)
[2019-02-10] MEDS: HUMULIN R SUBQ SCH ×3 (06:05→15:53)
[2019-02-10] MEDS: PLAVIX PO SCH ×2 (07:37→09:32)
[2019-02-10] MEDS: THYROID PO SCH (07:38)
[2019-02-10] MEDS: ASPIRIN PO SCH ×2 (07:38→09:17)
[2019-02-10] MEDS: TOPROL XL PO SCH ×2 (07:38→09:32)
[2019-02-10] MEDS: PROTONIX IV SCH (07:38)
[2019-02-10] MEDS: SENSIPAR PO SCH ×3 (07:38→20:57)
[2019-02-10] MEDS: SODIUM CHLORIDE 0.9% INJ SCH (07:38)
[2019-02-10] MEDS: LASIX IV SCH ×2 (07:38→19:27)
[2019-02-10] MEDS: MAXIPIME 2 GM in NS 100 ML IV SCH ×2 (07:39→20:21)
--- NOTE | 2019-02-10 08:14 | GENERAL SURGERY CONSULTATION ---
DATE: 02/09/2019 REASON FOR CONSULTATION: Ischemia, right foot. HISTORY OF PRESENT ILLNESS: A 58-year-old female who has had a prolonged ICU course, multiple complications with progressive hepatic and renal failure, felt to be related to DIC. She does have a history of peripheral vascular disease. History is somewhat limited, but she had apparent bypass in the right lower extremity and subsequent angioplasty. The nurse over the last 24 to 48 hours had noted discoloration of really the majority of the toes in the right foot distally but especially toes 1 through 4. She is nonverbal, but does not seem to indicate any pain. MEDICAL HISTORY: 1. Pneumonia and UTI currently with apparent DIC and progressive hepatic and renal insufficiency. 2. Coronary disease. 3. Diabetes. 4. Hypothyroidism. 5. Peripheral vascular disease. 6. Hyperparathyroidism. SURGICAL HISTORY: 1. Coronary artery stents. 2. Hysterectomy. 3. Gastric bypass. 4. Peripheral vascular procedures. Based off scar, appears to be a below-knee bypass and apparent percutaneous intervention as well. FAMILY HISTORY: per medical record noncontributory SOCIAL HISTORY: Somewhat limited, but apparent no current tobacco, alcohol or drugs. REVIEW OF SYSTEMS: unobtainable PHYSICAL EXAM: Vital Signs: Limited but 10 points negative. She is afebrile currently. Pulse in the low 100s. Blood pressure 150/90, oxygen saturation 99%. General: She is a chronically ill-appearing, seems arousable but nonverbal. HEENT: She has a nasogastric feeding tube. No scleral icterus. No cervical masses. Cardiovascular: Normal rate and rhythm. Abdomen: Soft, nontender. Integument: Warm, dry. Peripheral vascular: She has chronic ischemic changes in the right lower extremity with vascular appearing scars. She does have some distal ischemia but no purulence. Really all of her distal toes but worse in the 1st through 4th toes seem relatively acute. Left foot is warm with pedal pulse not clearly palpable. Neurologic: Generalized weakness. Psychiatric: She is nonverbal. White count 16, hematocrit 28. Her INR is up to 3.17. ABG was removed. She has a lactic acidosis. Creatinine is 1.3. Calcium is 11.3. Her bilirubin is 3.79. AST, ALT, and alkaline phosphatase are elevated. She has had noninvasive vascular studies apparently pending. ASSESSMENT AND PLAN: A 58-year-old female with multiorgan failure related to sepsis. She has had worsening ischemic changes right foot in the setting of known peripheral vascular disease. I have recommended keeping the foot warm. I do not see any definitive tissue loss at this juncture. There are no wounds. There is no purulence and her overall limb is not threatened, although her toes very much are. Continue to follow along with this very gravely ill female, overall grim prognosis and likelihood of keeping her toes is low. We will follow up her noninvasive studies as well. cc: Marcy Lopez MD [facility]
[2019-02-10] MEDS: MIACALCIN SUBQ SCH ×2 (09:49→20:57)
--- NOTE | 2019-02-10 11:02 | PROGRESS NOTE ---
DATE: 02/10/2019 SUBJECTIVE: The patient seems to be very lethargic. She does not answer any questions. OBJECTIVE: Vital Signs: Temperature 97.7 degrees, heart rate 112, respiratory rate 17, blood pressure 151/103. O2 saturation 98% on room air. General: This is a chronically ill-appearing and frail 58-year-old female lying in bed in no acute distress. HEENT: Head is normocephalic, atraumatic. Mucous membranes dry. Pupils: Equal, round, and reactive to light and accommodation. Neck: No JVD noted. No carotid bruits. No lymphadenopathy. No thyromegaly. Cardiovascular: S1, S2 heard. No murmurs, gallops, or rubs. Regular rate and rhythm. Respiratory: Decreased breath sounds globally. Minimal coarse breath sounds in both pulmonary bases. Patient not using any accessory muscles or having work of breathing. Abdomen: Soft. Nontender to palpation. Bowel sounds present. No organomegaly. Extremities: Right lower extremity, there are pulses in dorsalis pedis and posterior tibialis. All 4 upper and lower extremities are cold to touch. There are some ischemic toes noted in the right foot 1st, 2nd and 3rd. Neurological: Patient is awake, but does not answer my questions. It does not really track or anything from my perspective. Moves all 4 extremities spontaneously though. LABORATORY DATA: White cell count 14.34, hemoglobin 9.2, hematocrit 28.2, and platelets 117,000. creatinine 1.1. Glucose 340. ALT 130. AST 148. ASSESSMENT AND PLAN: 1. Peripheral vascular disease. There was a concern for acute limb ischemia due to hypoperfusion and thrombosis. In any case, we have consulted General Surgery on medical management. Recommend at this time, patient's medical conditions make her really difficult to have any surgery. 2. Thrombocytopenia. Today, the platelet count is a little bit better. It is yesterday 107 and today 117. There was a concern for thrombocytopenia reaction from Zyvox that medication has been changed to vancomycin. 3. Hypercalcemia most likely related to hyperparathyroidism. Patient is receiving Sensipar. Because the calcium is still high, we are going to use calcitonin subcutaneously twice daily for a couple of days and see if that helps. 4. Coagulopathy/DIC most likely related to sepsis. Hematology/oncology has consulted. We will follow recommendations. 5. Left lower lobe pneumonia. Patient is on vancomycin and cefepime. Dr. Mason of Infectious Disease is following this patient. We will follow recommendations. 6. Acute liver injury. That condition is getting better. AST and ALT are getting better. We will continue to monitor. 7. Disposition. The patient looks to be critically ill. General Surgery and pulmonary following this patient. We will follow recommendations. cc: Lucho Gomez MD [facility]
--- NOTE | 2019-02-10 11:58 | INFECTIOUS DISEASE PROGRESS NO ---
DATE: 02/10/2019 PRESENT ILLNESS: The patient has a left lower lobe pneumonia. There also appears to be pulmonary venous congestion present as well. MEDICATIONS: This is the fourth day of treatment with cefepime and day 1 of treatment with vancomycin. PHYSICAL EXAMINATION: Vital signs: Temperature is 98, pulse 112, respirations 15, blood pressure 155/100. General: This is an obese ill-appearing middle-aged female. She is in no acute distress. Head, Eyes, Ears, Nose, and Throat: She does not have any drainage from her nose or ears. I could not look into her mouth well. The patient has a nasogastric tube in place through which she is receiving tube feeding. Neck: The patient does not seem to have any pain when she moves her neck. Lungs: Clear to auscultation. Cardiovascular: Irregular heart rate. Thorax: The patient has a pacemaker present on the left side. The site is not swollen or draining. Extremities: The patient has a PICC in the left arm. The site is not swollen or draining there either. Neurologic: The patient seems somewhat delirious, occasionally she opens her eyes but she does not track with them and she does not follow requests to move her extremities. LAB AND X-RAY: The patient's chest x-ray shows left lower lobe consolidation and pulmonary venous congestion. The patient's CBC shows a white count of 14,240, hemoglobin 9.2, and platelet count 117,000. Creatinine is 1.1, GFR is greater than 60, bilirubin is 3.1, ALT is 148, and alkaline phosphatase is 362. Blood cultures are negative. ASSESSMENT AND PLAN: The patient has pneumonia in the left lower lobe. I am going to continue cefepime and vancomycin. Procalcitonin level has been ordered but it has not yet come back. The cause of the patient's elevated liver function studies is unknown to me. She has had an abdominal ultrasound, which did not find anything outstanding wrong. COMORBIDITIES: The patient is a diabetic. She also has coronary artery disease. cc: Arian Mason MD
--- NOTE | 2019-02-10 13:58 | NEPHROLOGY PROGRESS NOTE ---
DATE: 02/10/2019 SUBJECTIVE: The patient remains obtunded with eyes closed. She did not respond to a sternal rub. OBJECTIVE: Vital Signs: Temperature 98.1, pulse 106, respiratory rate 17, blood pressure 142/94. Intake 2 L, output 500 mL. General: This is a chronically ill-appearing, middle-aged female resting in bed. Her eyes are closed. HEENT: Normocephalic, atraumatic. Oral mucosa appears dry. Neck: Supple with trace JVD. Cardiovascular: Regular rate and rhythm. Pulmonary: She has some decreased breath sounds. She has no wheeze or rhonchi. Abdomen: Soft with positive bowel sounds. : She has a Cervantes catheter with peach-colored urine. Extremities: She has 2+ upper and lower extremity edema. She has some weeping to a phlebotomy site. Integumentary: Skin is warm and dry. LAB DATA: WBC of 14.2, hemoglobin 9.2. Sodium 142, potassium 4.2, CO2 19, creatinine 1.1. Her albumin is 3.4. Her calcium is 11.3. Her PTH is 173. ASSESSMENT AND PLAN: 1. Oliguria unchanged. She is now close to 9 L positive. We will give her Lasix 80 mg b.i.d. as her renal function has been unchanged. 2. Hypercalcemia. Sensipar was added yesterday. Her PTH is 173. She has secondary hyperparathyroidism secondary to previous gastric bypass. Continue to monitor. Dictated by CURRY Peoples for Remi Zabala MD Face to face encounter, data reviewed, discussed with Susu Guerra on 02/10/19. I agree with the above assessment and plan of care. cc: Remi Zabala MD [facility]
--- NOTE | 2019-02-10 15:35 | VASCULAR LAB ---
PROCEDURE NAME: Arterial Bilateral Legs - 02/09/2019 STUDY: Bilateral lower extremity segmental Doppler exam. WINDOWS ARCHITECT: Ferrer. REQUESTING PHYSICIAN: Chapo Gomes MD. INDICATION: Peripheral vascular disease. FINDINGS: Left brachial pressure is 155. High thigh on the right is 250, on the left 155. Low thigh on the right is 250, on the left 111. Calf on the right is 159, on the left 111. DP on the right is 135, on the left 115. PT on the right is 106, on the left 95. RAGHU on the right 0.87, on the left 0.74. Toe pressures were not obtainable. In the right lower extremity, there is significant blunting of the waveforms throughout, however, the RAGHU remains near the normal range but there is some suggestion given the high pressures in the upper thigh of incomplete compressibility. In the left, there is further blunting that becomes more severe as it progresses distally with an RAGHU of 0.74. SUMMARY: Pulsatile flow noted to the level of the ankles bilaterally. There is suggestion of diffuse atherosclerotic changes starting in the aortoiliac region and progressing distally. If clinically indicated could correlate with angiography. cc: MD Chapo Montejo MD
--- NOTE | 2019-02-10 19:24 | GENERAL SURGERY PROGRESS NOTE ---
DATE: 02/10/2019 SUBJECTIVE: Clinically overall remains about the same. OBJECTIVE: On exam, she seems alert but nonresponsive.Cardiovascular: Normal rate. Pulmonary: She is on nasal cannula. Abdomen: Her abdomen is soft. Lower extremities: Right foot shows stable dusky changes to her toes distally but no yaritza tissue loss. The foot is otherwise warm. LABORATORY DATA: I reviewed her labs. She has a persistent leukocytosis, anemia with elevated fibrinogen. Creatinine is 1.1. Her LFTs are downtrending. ASSESSMENT: A 58-year-old female with multiple medical issues. She has chronic peripheral vascular disease and discoloration of her toes. She has the risk of further demarcation and necrosis of her toes. However, I do not see any signs of infection and do not feel that any emergent vascular procedure is indicated. PLAN: We will continue to follow her closely going forward. She did have an arterial study that showed compression of her ABIs, actually worse on the left than on the right, but pulsatile flow noted to the level of the feet. cc: Marcy Lopez MD
[2019-02-10] MEDS: HUMALOG SUBQ SCH ×2 (19:27→22:08)
--- NOTE | 2019-02-10 21:59 | PULMONOLOGY PROGRESS NOTE ---
DATE: 02/10/2019 SUBJECTIVE: The patient opens her eyes to voice, but does not follow commands. OBJECTIVE: Vital Signs: The patient has been afebrile for the last 24 hours. Blood pressure 141/87, heart rate 104, respiratory rate 17, oxygen saturation 96% on 2 L per nasal cannula. HEENT: Pupils are equal. Oropharynx appears dry. Neck: Supple. Chest: Reveals shallow breath sounds bilaterally with decreased breath sounds left base. Cardiac: S1, S2. Abdomen: Soft with diminished bowel sounds. Extremities are cool to the touch consistent with peripheral vascular disease. LABORATORIES: Sodium 142, potassium 4.2, chloride 107, bicarbonate 19, anion gap 16 and declining. BUN 50. Creatinine 1.1. Glucose 340, calcium 11.3, bilirubin 3.10, AST 138, ALT 148. MICROBIOLOGY: Reveals no new data. IMPRESSION: 1. A 58-year-old with pneumonia. 2. Nonischemic cardiomyopathy. 3. Increased anion gap acidosis. 4. Encephalopathy. 5. Hypercalcemia. 6. Acute liver failure. 7. Peripheral vascular disease. PLAN: 1. Continue current antibiotic regimen. 2. Continue bronchial hygiene. 3. Continue Sensipar. Calcitonin has been added by the hospitalist. 4. Follow up chest x-ray tomorrow. cc: Lucas Graves MD
[2019-02-11] MEDS: VANCOMYCIN 1.4 GM in NS 250 ML IV SCH (04:16)
--- NOTE | 2019-02-11 06:46 | Diag Imaging Result Doc PS360 ---
CHEST-PORTABLE - 02/11/2019 INDICATION: abnormal exam COMPARISON: 02/09/2019 FINDINGS: Support lines and tubes are stable. Stable pacemaker. Stable cardiomegaly. There has been some decrease in density of the bibasilar infiltrates/edema. No large pleural effusion. IMPRESSION: Improvement from prior. Electronically signed by Roger Whiteside 02/11/2019 6:44 AM
[2019-02-11] MEDS: PROTONIX IV SCH (06:52)
[2019-02-11] MEDS: SODIUM CHLORIDE 0.9% INJ SCH (06:52)
[2019-02-11] MEDS: HUMALOG SUBQ SCH ×4 (06:52→22:12)
[2019-02-11] MEDS: LASIX IV SCH ×2 (06:53→22:00)
[2019-02-11] MEDS: THYROID PO SCH (06:53)
[2019-02-11 06:55] LABS: BASO# 0.01 X1000 (0.0-0.2); EOS% 0.5 % (0.0-10.0); HEMATOCRIT 33.1 % (37.0-47.0); HEMOGLOBIN 11.1 g/dL (12.0-16.0); IMM GRAN# 0.13 X1000 (0.0-0.04); IMM GRAN% 0.6 % (0.0-0.5); LYMPH# 1.66 X1000 (1.2-3.4); LYMPH% 7.6 % (20.5-51.1); MCH 22.5 PG (27-31); MCHC 33.5 g/dL (33-37); MONO# 2.33 X1000 (0.11-0.59); MONO% 10.7 % (1.7-9.3); NEUT# 17.61 X1000 (1.4-6.5); NEUT% 80.6 % (42.2-75.2); PLT 104 X1000 (130-400); RBC 4.94 XMIL (4.2-5.4); RDW 21.2 % (11.5-14.5); WBC 21.84 X1000 (4.8-10.8)
[2019-02-11 07:13] LABS: AGAP 14; BUN 47 mg/dL (8-22); CALCIUM 10.6 mg/dL (8.8-10.2); CHLORIDE 106 mmol/L (98-107); COSMO 312; CREATININE 1.1 mg/dL (0.5-0.9); ESTIMATED GFR > 60; GLUCOSE 197 mg/dL (70-104); POTASSIUM 2.7 mmol/L (3.5-5.1); SODIUM 148 mmol/L (136-145); TCO2 28 mmol/L (25-35); TOTAL BILIRUBIN 2.62 mg/dL (0.20-1.00)
[2019-02-11 07:14] LABS: ALB/GLOB RATIO 1.5; ALBUMIN 3.4 g/dL (3.5-5.0); ALKALINE PHOSPHATASE 385 U/L (32-104); GOT 98 U/L (10-30); GPT 138 U/L (10-36); TOTAL PROTEIN 5.7 g/dL (6.3-8.3)
[2019-02-11 07:27] LABS: EOS 1 % (1-10); LYMPHS 5 % (21-51); MONO 8 % (1-9); NRBC 4 % (0-0); SEGS 86 % (42-75)
[2019-02-11] MEDS: PLAVIX PO SCH (08:31)
[2019-02-11] MEDS: ASPIRIN PO SCH (08:31)
[2019-02-11] MEDS: TOPROL XL PO SCH (08:31)
[2019-02-11] MEDS: SENSIPAR PO SCH ×2 (08:31→22:00)
[2019-02-11] MEDS ORDERED: CALCIUM GLUCONATE 2 GM in NS 100 ML IV ONE (08:35)
[2019-02-11] MEDS: MIACALCIN SUBQ SCH ×2 (09:16→22:01)
[2019-02-11] MEDS: MAXIPIME 2 GM in NS 100 ML IV SCH ×2 (09:16→22:00)
--- NOTE | 2019-02-11 09:23 | PROGRESS NOTE ---
DATE: 02/11/2019 SUBJECTIVE: The patient continues to be lethargic and confused. She does not answer any questions for me. OBJECTIVE: Vital Signs: Temperature 99.4 degrees, heart rate 96, respiratory rate 18, blood pressure 138/75, O2 saturation 97% on room air. General: This is a chronically ill appearing 58-year-old female lying in bed, in no acute distress. HEENT: Head is normocephalic, atraumatic. Mucous membranes dry. Neck: No JVD noted. No carotid bruits. No lymphadenopathy. No thyromegaly. Cardiovascular: S1, S2 heard. No murmurs, gallops, or rubs. Regular rate and rhythm. Respiratory: Decreased breath sounds globally with coarse breath sounds noted in both pulmonary bases. Patient not using any accessory muscles or having work of breathing. Abdomen: Soft. A little bit distended, but nontender to palpation. Bowel sounds present. No organomegaly. NG tube placed with tube feedings running. Extremities: Both upper and lower extremities are cold to touch. Some discoloration of her toes noted. There is no necrosis of those toes noted though. Neurological: Patient is awake, but does not answer my question. Does not really track or anything from my perspective. Moves 4 extremities spontaneously though. LABORATORY DATA: White cell count 21.84, hemoglobin 11.1, hematocrit 33.1, platelets 104,000. BMP reveals potassium 3.7, creatinine 1.1, glucose 197, total bilirubin 2.62 with AST 98, ALT 138. ASSESSMENT AND PLAN: 1. Left lower lobe pneumonia. Patient continues to be on vancomycin and cefepime. Dr. Mason of Infectious Disease is following this patient. White cell count is getting higher. Will leave the decision to manage antibiotics to him. His help is appreciated. 2. Peripheral vascular disease. There was a concern for acute limb ischemia. Dr. Lopez from General Surgery is following this patient, will follow recommendations. At this point, there is no emergent surgery required according to his standpoint. 3. Thrombocytopenia, definitely a little better today. Will continue to monitor CBC. 4. Hypercalcemia, most likely related to hyperparathyroidism. The patient is on Sensipar and also calcitonin. Calcium yesterday was 11.3 and today is 10.6. Will continue with same management. 5. Acute liver injury. AST and ALT continue to improve slowly. Will continue to monitor. 6. Disposition. Patient appears to be critically ill. General Surgery, Pulmonary and Infectious Disease are following this patient. Help is appreciated. Follow recommendation. cc: Lucho Gomez MD
--- NOTE | 2019-02-11 09:40 | INFECTIOUS DISEASE PROGRESS NO ---
DATE: 02/11/2019 PRESENT ILLNESS: The patient has bilateral lower lobe infiltrates, which I think are due to pneumonia. MEDICATIONS: This is the 5th day of treatment with cefepime and day #2 of treatment with vancomycin. PHYSICAL EXAMINATION: Vital Signs: Temperature is 99.4 degrees, pulse 96, respirations 10, blood pressure 138/75. General: This is an ill-appearing, obese, middle-aged female. Head/eyes/ears/nose/throat: She does turn her head when I start talking to her, and her eyes are open, and then she turns her head right away. I did not see any drainage from her nose or ears. Neck: No stiffness. Lungs: Clear to auscultation. Cardiovascular: Heart rate is regular. Abdomen: Soft and nontender. Neurologic: As mentioned above, when I start talking to her she turns her head. She opens her eyes and then she turns it away and she does not do anything that I request her to do, such as moving her extremities or closing or opening her eyes. LAB AND X-RAY: Chest x-ray shows improvement in the bibasilar infiltrates. The patient's CBC shows a white count of 21,840, hemoglobin 11.1 and platelet count of 204,000. Creatinine is 1.1. GFR is greater than 60. Alkaline phosphatase is 385. ASSESSMENT AND PLAN: Patient has bibasilar pneumonia which appears to be getting better. I ordered a procalcitonin level, but it is not back yet. My plan is to continue with the vancomycin and cefepime to treat a presumed bibasilar pneumonia. I am not certain as to why the patient's white blood cell count is increasing. COMORBIDITIES: The patient is a diabetic. She also has coronary artery disease. cc: Arian Mason MD
[2019-02-11 11:00] LABS: HEPATITIS PROFILE ACUTE SEE COMMENTS
[2019-02-11] MEDS: POTASSIUM CHLORIDE 20% LIQUID NG SCH ×2 (13:14→16:27)
--- NOTE | 2019-02-11 14:03 | NEPHROLOGY PROGRESS NOTE ---
DATE: 02/11/2019 SUBJECTIVE: The patient will move her head today to verbal stimuli. OBJECTIVE: Vital Signs: Temperature 98.3, pulse 100, respiratory rate 12, blood pressure 138/73. Intake 1.8 L. Output is unclear. It is noted that she was diuresing yesterday. The chart documents that she had 10 L out. Unclear if this so. Physical examination: General: Chronically ill-appearing, elderly female, resting in bed. No acute distress. She will open her eyes. HEENT: Normocephalic, atraumatic. Oral mucosa dry. Neck: Supple. She continues with some trace JVD. Cardiovascular: Regular rate and rhythm. Pulmonary: Decreased breath sounds but clear. Abdomen: Soft. Positive bowel sounds. : Cervantes catheter with clear yellow urine. Extremities: Her upper extremity is dramatically improved from yesterday. Her extremities are soft without pitting. Lower extremity 1+ edema. Integumentary: Skin is warm and dry. Lab Data: WBC of 21.8, hemoglobin 11.1. Sodium 148, potassium 2.7, creatinine 1.1. ASSESSMENT AND PLAN: 1. Oliguria. We gave her Lasix yesterday and she had a significant response. We will continue her Lasix overnight as she had been overloaded at least 9 L. 2. Hypercalcemia. Her calcium today is 10.6. She did receive Sensipar. No change. Dictated by CURRY Peoples for Remi Zabala MD Face to face encounter, data reviewed, discussed with Susu Guerra on 02/11/19. I agree with the above assessment and plan of care. cc: Remi Zabala MD [facility]
--- NOTE | 2019-02-11 21:03 | HEMO/ONC CONSULTATION ---
DATE: 02/10/2019 ADMITTING PHYSICIAN: Dr. Veliz. REQUESTING PHYSICIAN: Dr. Veliz. We appreciate this consult. CHIEF COMPLAINT: DIC. HISTORY OF PRESENT ILLNESS: Ms. Wilmer French is a 58-year-old female with a history of diabetes mellitus type 2, coronary artery disease, hypertension, primary hyperparathyroidism, with nonischemic dilated cardiomyopathy and an ejection fraction of 15%. The patient presented to [facility] Emergency Department secondary to lethargy and elevated blood sugars greater than 500. The patient was ultimately found to have sepsis with a left lower lobe pneumonia. The patient also has a history of peripheral vascular disease and was found to have a possible acute limb ischemia secondary to hypoperfusion and thrombosis. Additionally the patient was found to be in DIC likely secondary to sepsis. We are consulted secondary to DIC. PT is 33.4, INR 3.17. PTT 39.3, fibrinogen 217 and D-dimer is 10.86. Of note, platelet count is [id number]. PAST MEDICAL HISTORY: As in HPI. PAST SURGICAL HISTORY: 1. Coronary artery stent placement. 2. Hysterectomy. 3. Gastric bypass. SOCIAL HISTORY: It is difficult to obtain secondary to the patient's extreme somnolence and unresponsiveness. MEDICATIONS ON ADMISSION: Medication reconciliation is pending. ALLERGIES: The patient has no known drug allergies. REVIEW OF SYSTEMS: A 14 point review of systems was attempted and is unable to be obtained secondary to lethargy and minimal responsiveness. PHYSICAL EXAMINATION: Vital Signs: Ms. French is a 58-year-old female, lying supine in bed in no immediate distress. She is quite lethargic at this time and minimally responsive. Vital Signs: Temperature 97.7 degrees, blood pressure 151/103, heart rate 112, respirations 17. O2 saturation is 98% on room air. HEENT: Normocephalic, atraumatic. Mucous membranes are pale and moist. Sclerae is anicteric. Extraocular movements intact. Neck: Supple. Lungs: Clear to auscultation bilaterally. Chest expansion equal bilaterally. Cardiovascular: S1, S2 is heard. The patient is tachycardic. Abdomen: Nondistended, nontender, bowel sounds positive. Extremities: No clubbing, cyanosis. She does have trace bilateral lower extremity edema. She is 4 point restraints. Dermatologic: No rashes, bruises or lesions. Neurologic: Again the patient is somnolent and minimally responsive. She has no overt focal deficit. LABORATORY DATA: PT 33.4, INR 3.17, PTT 39.35. Fibrinogen 217, D-dimer 10.86, hemoglobin 9.2, hematocrit 28.2, white blood cell count is 14.24, platelets 117,000. Sodium 142, potassium 4.2, chloride 107, CO2 is 19, BUN is 50, creatinine 1.1 and glucose is 348. ASSESSMENT AND PLAN: 1. Disseminated intravascular coagulation (DIC) likely secondary to sepsis. We will check a fibrinogen level every 3 days. We will initiate a workup at this time. 2. Thrombocytopenia secondary to #1. As per problem #1. 3. Peripheral vascular disease with possible acute limb ischemia secondary to hypoperfusion and thrombosis known. Workup is pending. 4. Elevated LFTs likely secondary to shock liver. 5. Left lower lobe pneumonia. Currently on antibiotics. 6. We will follow along with you and make further recommendations pending outcomes. The above does reflects the history, exam, assessment and plan of Dr. Kirkpatrick. Dictated by CURRY Snider for Tyrel Kirkpatrick MD cc: CURRY Snider MD
[2019-02-12] MEDS: THYROID PO SCH (06:23)
[2019-02-12] MEDS: SODIUM CHLORIDE 0.9% INJ SCH (06:23)
[2019-02-12] MEDS: PROTONIX IV SCH (06:24)
[2019-02-12] MEDS: HUMALOG SUBQ SCH ×5 (06:24→21:24)
[2019-02-12 06:52] LABS: BASO# 0.01 X1000 (0.0-0.2); BASO% 0.1 % (0.0-0.8); EOS# 0.02 X1000 (0.0-0.7); EOS% 0.1 % (0.0-10.0); HEMATOCRIT 34.1 % (37.0-47.0); HEMOGLOBIN 11.2 g/dL (12.0-16.0); IMM GRAN# 0.11 X1000 (0.0-0.04); IMM GRAN% 0.6 % (0.0-0.5); LYMPH# 0.92 X1000 (1.2-3.4); LYMPH% 4.6 % (20.5-51.1); MCH 22.3 PG (27-31); MCHC 32.8 g/dL (33-37); MCV 67.9 FL (81-99); MONO# 2.04 X1000 (0.11-0.59); MONO% 10.2 % (1.7-9.3); NEUT# 16.82 X1000 (1.4-6.5); NEUT% 84.4 % (42.2-75.2); PLT 82 X1000 (130-400); RBC 5.02 XMIL (4.2-5.4); RDW 21.6 % (11.5-14.5); WBC 19.92 X1000 (4.8-10.8)
[2019-02-12 07:12] LABS: AGAP 17; ALB/GLOB RATIO 1.1; ALBUMIN 3.1 g/dL (3.5-5.0); ALKALINE PHOSPHATASE 372 U/L (32-104); BUN 51 mg/dL (8-22); CALCIUM 10.2 mg/dL (8.8-10.2); CHLORIDE 101 mmol/L (98-107); COSMO 327; ESTIMATED GFR > 60; GOT 59 U/L (10-30); GPT 101 U/L (10-36); POTASSIUM 3.5 mmol/L (3.5-5.1); SODIUM 148 mmol/L (136-145); TCO2 30 mmol/L (25-35); TOTAL BILIRUBIN 2.98 mg/dL (0.20-1.00)
[2019-02-12 07:20] LABS: GLUCOSE 441 mg/dL (70-104)
[2019-02-12 07:31] LABS: MONO 6 % (1-9); SEGS 84 % (42-75)
[2019-02-12] MEDS: MAXIPIME 2 GM in NS 100 ML IV SCH ×2 (07:55→20:06)
[2019-02-12] MEDS: SENSIPAR PO SCH ×2 (08:01→20:06)
[2019-02-12] MEDS: TOPROL XL PO SCH (08:01)
[2019-02-12] MEDS: PLAVIX PO SCH (08:01)
[2019-02-12] MEDS: ASPIRIN PO SCH (08:02)
[2019-02-12] MEDS: LANTUS INSULIN SUBQ SCH (09:11)
--- NOTE | 2019-02-12 10:12 | PROGRESS NOTE ---
DATE: 02/12/2019 SUBJECTIVE: Patient continues to be lethargic and confused. She does not answer any questions. Son is at bedtime and has been informed about the current situation of his mother. OBJECTIVE: Vital Signs: Temperature 98.0 degrees, heart rate 111, respiratory rate 13, blood pressure 127/81, O2 saturation 96% on room air. General Examination: This is a chronically ill- appearing, 58-year-old female, lying in bed in no acute distress. HEENT: Head is normocephalic, atraumatic. Mucous membranes dry. An NG tube in place with tube feeds running. Neck: No JVD noted. No carotid bruits. No lymphadenopathy. No thyromegaly. Cardiovascular exam: S1, S2 heard. No murmurs, gallops, or rubs. Regular rate and rhythm. Respiratory exam: Decreased breath sounds globally with coarse breath sounds noted in both pulmonary bases. The patient is not using any accessory muscles or having work of breathing. Abdomen: Decreased breath sounds globally with coarse breath sounds noted in both pulmonary bases. Patient is not using any accessory muscles or having work of breathing. Abdomen: Soft. A little bit distended. Nontender to palpation. Bowel sounds present. No organomegaly. Extremities: Both upper and lower extremities are cold to touch. Discoloration of the toes on the right foot noted. It looks like toes are a little bit darker today; I am not quite sure if they are becoming necrotic or not. Neurological exam: Patient is awake, but does not answer any questions, does not really track or anything from my perspective. Moves 4 extremities spontaneously though. LABORATORY DATA: White cell count 19.92, hemoglobin 11.2, hematocrit 34.1, platelets 82 with BMP remarkable for potassium 3.5, sodium 148, creatinine 1.0, total bilirubin 2.98, AST 59, ALT 101. The protein electrophoresis revealed normal better global pattern. They will rule out monoclonal band. ASSESSMENT AND PLAN: 1. Left lower lobe pneumonia. Unfortunately this patient, despite being on vancomycin and cefepime, had white cell count that continues to be high. Considering that there is not too much improvement, we will go ahead and order a CT of the chest and will go from there. Dr. Mason from Infectious Disease is following this patient. We will follow recommendation. 2. Peripheral vascular disease. The right lower extremity and actually the right foot continues to show normal perfused toes. General Surgery is following this patient. We will follow recommendations. Patient has history of stents placed before in both femoral arteries. 3. Congestive heart failure with ejection fraction of 15% on automatic implantable cardioverter defibrillator. The patient is being followed by Dr. Onur Penny from [facility]. At this point, she does not look to be in any exacerbation. We will continue to monitor. 4. Thrombocytopenia. We will continue to monitor CBC. 5. Hypercalcemia, likely related to hyperparathyroidism. The calcium is 10.2. We will continue to monitor. 6. Acute liver injury. That condition is getting better. AST and ALT continue to improve slowly. We will continue to monitor. 7. Opiate abuse. According to son, patient was prescribed Suboxone to try to help her with this problem. 8. Disposition: Patient continues to be critically ill. General Surgery, Pulmonary and Infectious Disease following this patient. We will follow recommendations. cc: Lucho Gomez MD MTDD
--- NOTE | 2019-02-12 10:41 | INFECTIOUS DISEASE PROGRESS NO ---
DATE: 02/12/2019 PRESENT ILLNESS: The patient has a bilateral lower lobe pneumonia which on x-ray is getting better. She continues to have a leukocytosis, and she recently started having diarrhea. MEDICATIONS: This is the 6th day of treatment with cefepime and day 3 of treatment with vancomycin. PHYSICAL EXAMINATION: Vital Signs: Temperature 98 degrees pulse 110, respirations 12, and blood pressure 143/83. General: This is an ill-appearing, obese, middle-aged female. Head/eyes/ears/nose/throat: No drainage noted from the nose or ears. I could not see into her mouth. The patient has an NG tube down through which she is receiving tube feedings. Neck: No pain with movement. Lungs: Clear to auscultation. Cardiovascular: Heart rate is regular. Abdomen: Soft and non tender. Thorax: The patient has a pacemaker present on the left side. The site is not swollen or tender. Extremities: Patient has a PICC in the right arm. The site is not swollen or tender either. Neurologic: The patient will turn her head towards me and open her eyes when I say hello to her, but after doing that she turns her head away and she does not move her extremities to my request. It seems to me that she is in a delirium. LABORATORY AND X-RAY: The [place] [address], hemoglobin 11.2, and platelet count 82,000. The patient's creatinine is 1. GFR is greater than 60. Bilirubin is 2.98, alkaline phosphatase is 372. Hepatitis panel is nonreactive. Chest x-ray shows improvement in the bibasilar infiltrates. ASSESSMENT AND PLAN: The patient has pneumonia which radiographically is getting better. She has an increasing leukocytosis, and with her having diarrhea which could be due to the tube feeding, but also could be due to Clostridium difficile diarrhea. I plan on sending stool for Clostridium difficile toxin and antigen. I plan on continuing the patient's current antibiotics which appear to be treating successfully the patient's pneumonia. COMORBIDITIES: The patient is a diabetic. She also has coronary artery disease. cc: Arian Mason MD
--- NOTE | 2019-02-12 11:24 | Diag Imaging Result Doc PS360 ---
CT THORAX W/O CONTRAST - 02/12/2019 INDICATION: pna COMPARISON: 12/04/2016, 02/11/2019 FINDINGS: There is a left-sided pacemaker in good position. There is a right PICC line with the catheter tip at the lower SVC. There is a nasogastric tube with tip in the draining sindi limb. There are gastric bypass changes. There is severe body wall edema diffusely. No adenopathy in the chest. Heart size is normal. There is a trace left pleural effusion. There are hazy infiltrates scattered throughout the lungs diffusely. The lung bases are affected the worst. There are some thickened interlobular septae suggesting pulmonary edema. Mild COPD. There are moderate degenerative changes of the spine. No acute or suspicious bony lesion. IMPRESSION: 1. Mixed infiltrates. There is probably both pneumonia and pulmonary edema. 2. Mild COPD. 3. Severe body wall edema. This exam was performed using automated exposure control, adjustment of mA or kV according to patient size, and/or use of iterative reconstruction technique Electronically signed by Roger Whiteside 02/12/2019 11:21 AM
--- NOTE | 2019-02-12 13:34 | NEPHROLOGY PROGRESS NOTE ---
DATE: 02/12/2019 SUBJECTIVE: The patient is resting in the bed. She will open her eyes and move her head. OBJECTIVE: Vital signs: Temperature 98.5, pulse 93, respirations 12, blood pressure 124/83. Intake 1.9 liters. Output 7.3 liters via Cervantes catheter. Exam: General: This is a chronically ill-appearing, elderly female in no acute distress. She opens her eyes today and turns her head back and forth. She does appear to try to communicate. HEENT: Normocephalic, atraumatic. Oral mucosa appears dry. Neck: Supple. She has trace to no JVD. Cardiovascular: Regular rate and rhythm. Pulmonary: Decreased breath sounds. Equal excursion. Abdomen: Soft with positive bowel sounds. : Clear yellow urine. Extremities: No upper extremity edema. She has trace lower extremity edema. Integumentary: Skin is warm and dry. Lab Data: WBC of 19.9, hemoglobin 11.2. Sodium 148, potassium 4.3, CO2 of 30, BUN 51, creatinine 1, calcium 10.2, albumin 3.1. ASSESSMENT AND PLAN: 1. Oliguria. Patient again had significant diuresis overnight. We will reduce her IV Lasix. 2. Hypercalcemia, stable. She is on Sensipar. 3. Left lower lobe pneumonia. Renal function requires no changes to her current medication dosing. Dictated by CURRY Peoples for Remi Zabala MD Face to face encounter, data reviewed, discussed with Susu Guerra on 02/12/19. I agree with the above assessment and plan of care. cc: Remi Zabala MD [facility] [place]
[2019-02-12] MEDS: VANCOMYCIN 1.4 GM in NS 250 ML IV SCH (15:41)
[2019-02-13] MEDS: PROTONIX IV SCH (06:16)
[2019-02-13] MEDS: SODIUM CHLORIDE 0.9% INJ SCH (06:16)
[2019-02-13] MEDS: THYROID PO SCH (06:16)
[2019-02-13] MEDS: HUMALOG SUBQ SCH ×4 (06:17→20:42)
[2019-02-13 06:39] LABS: BASO# 0.01 X1000 (0.0-0.2); EOS% 0.4 % (0.0-10.0); HEMATOCRIT 33.2 % (37.0-47.0); HEMOGLOBIN 10.8 g/dL (12.0-16.0); IMM GRAN% 0.4 % (0.0-0.5); LYMPH# 1.54 X1000 (1.2-3.4); LYMPH% 6.6 % (20.5-51.1); MCH 22.3 PG (27-31); MCHC 32.5 g/dL (33-37); MCV 68.5 FL (81-99); MONO# 3.32 X1000 (0.11-0.59); MONO% 14.2 % (1.7-9.3); NEUT# 18.31 X1000 (1.4-6.5); NEUT% 78.4 % (42.2-75.2); PLT 65 X1000 (130-400); RBC 4.85 XMIL (4.2-5.4); RDW 21.6 % (11.5-14.5); WBC 23.38 X1000 (4.8-10.8)
[2019-02-13 08:19] LABS: ANISOCYTOSIS 1+; BANDS 6 % (0-1); LYMPHS 4 % (21-51); MONO 9 % (1-9); NRBC 3 % (0-0); SEGS 81 % (42-75)
[2019-02-13 08:20] LABS: HYPOCHROM 1+; LARGE PLATELETS 1+; MICROCYTOSIS 2+; POIKILOCYTOSIS 1+; TARGET CELLS 1+
[2019-02-13] MEDS: TOPROL XL PO SCH (09:08)
[2019-02-13] MEDS: LANTUS INSULIN SUBQ SCH (09:08)
[2019-02-13] MEDS: SENSIPAR PO SCH ×2 (09:08→21:14)
[2019-02-13] MEDS: MAXIPIME 2 GM in NS 100 ML IV SCH (09:08)
[2019-02-13] MEDS: ASPIRIN PO SCH (09:08)
[2019-02-13] MEDS: PLAVIX PO SCH (09:08)
[2019-02-13] MEDS: LASIX IV SCH ×2 (09:57→20:13)
[2019-02-13 10:30] LABS: AGAP 12; ALKALINE PHOSPHATASE 268 U/L (32-104); BUN 44 mg/dL (8-22); CALCIUM 8.9 mg/dL (8.8-10.2); CHLORIDE 100 mmol/L (98-107); COSMO 309; CREATININE 0.8 mg/dL (0.5-0.9); ESTIMATED GFR > 60; GLUCOSE 169 mg/dL (70-104); GOT 43 U/L (10-30); GPT 72 U/L (10-36); POTASSIUM 2.6 mmol/L (3.5-5.1); SODIUM 148 mmol/L (136-145); TCO2 36 mmol/L (25-35); TOTAL BILIRUBIN 1.96 mg/dL (0.20-1.00)
--- NOTE | 2019-02-13 11:01 | Diag Imaging Result Doc PS360 ---
EXAM: CHEST-PORTABLE 02/13/2019 HISTORY: pulmonary edema TECHNIQUE: AP portable at 1042 COMMENT: There is an NG tube which passes below the diaphragm. There is a PICC line the tip of which is just above the right atrium. There is improvement in the pulmonary edema seen on 02/11/2019. There continues to be opacity in the left lower lobe behind the heart which may be due to pneumonia. IMPRESSION: Left lower lobe pneumonia. Improved pulmonary edema. Electronically signed by Mehrdad Dela Cruz 02/13/2019 10:59 AM
[2019-02-13] MEDS: MERREM 2 GM in NS 50 ML IV SCH ×2 (11:26→18:40)
[2019-02-13] MEDS ORDERED: POTASSIUM CHLORIDE 20% LIQUID PO ONE ×2 (11:51→16:00)
--- NOTE | 2019-02-13 12:18 | PROGRESS NOTE ---
DATE: 02/13/2019 SUBJECTIVE: Patient continues to be nonverbal to me. She open eyes to verbal stimuli but she does not talk to me. OBJECTIVE: Vital Signs: Temperature 98.7 degrees, heart rate 103, respiratory rate 13, blood pressure 137/87, O2 saturation 99% on room air. General Examination: This is a chronically ill- appearing, 58-year-old female lying in bed, in no acute distress. HEENT: Head is normocephalic, atraumatic. Mucous membranes dry. NG tube in place with tube feeding running. Neck: No JVD noted. No carotid bruits. No lymphadenopathy. No thyromegaly. Cardiovascular: S1, S2 heard. No murmurs, gallops, or rubs. Regular rate and rhythm. Respiratory: Decreased breath sounds globally. Still some crackles noted in both pulmonary bases. Patient not using any accessory muscles or having work of breathing. Decreased breath sounds globally. Abdomen: Soft, a little bit distended. Bowel sounds present but distant. No organomegaly noted. Extremities: Both upper and lower extremities are cold to touch with discoloration of toes on the right foot noted. It looks like it is a little bit darker today. I am not sure if they are becoming necrotic are not. Neurological: Patient is awake, but does not answer any questions. She does not really track or anything. The patient moves all 4 extremities spontaneously though. LABORATORY DATA: White cell count 23.38, hemoglobin 10.8, hematocrit 33.2, platelets 65,000. CMP still pending at time of dictation. CT of the chest shows mixed infiltrate. There is probably both pneumonia and pulmonary edema with mild COPD and severe body wall edema. ASSESSMENT AND PLAN: 1. Left lower lobe pneumonia. Unfortunately, that finding is still present in the CT. The CT also described some component of pulmonary edema that is most likely related to his chronic congestive heart failure. Currently, this patient is on vancomycin and cefepime. Dr. Mason from Infectious Disease is following this patient. We will follow recommendations. 2. Congestive heart failure with ejection fraction of 15% on AICD. Unfortunately, this patient continues to have pulmonary edema that was noted in the CT of the chest yesterday. At some point, patient was not making enough urine, so Nephrology who was consulted and placed her on furosemide 100 mg IV q.12 hours. That medication has been stopped because of a lot of diuresis. Considering the findings of the CT and the history on this patient, I think this patient needs to be on furosemide but will put on a lower doses in this case, Lasix 40 mg IV q.12 hours. We are going to check chest x-ray today and see what it shows. We will also consult Cardiology and we will go from there. 3. Peripheral vascular disease. As we mentioned before, the patient has vascular disease and the right foot there is discoloration that indicates poor perfusion. Patient has history of stents placed before in both femoral arteries. At this point, we will follow recommendations from General Surgery. 4. Thrombocytopenia, getting worse. Platelet count 65,000. We will continue to monitor. 5. Hypercalcemia most likely related to hyperparathyroidism. At time of dictation, the CMP is still pending but calcium from yesterday was 10.2. We will continue to monitor. She has been on calcitonin subcutaneously. 6. Acute liver injury. Labs still pending. We will continue to monitor. 7. Opiate abuse. Patient has been on Suboxone. At this point, I do not think she is on any opiate withdrawal. 8. Disposition. Patient appears to be critically ill p.o. I had a conversation with son about her current clinical situation yesterday. As per nursing communication, the patient's son wanted her to be transferred to [facility]. Will try to make that call today. cc: Lucho Gomez MD [facility]
[2019-02-13] MEDS ORDERED: CALMOSEPTINE OINTMENT TOP PRN (14:01)
--- NOTE | 2019-02-13 14:20 | ECHO REPORT ---
ORDER DATE: 02/13/2019 INDICATION: CHF. FINDINGS: 1. The right atrium appears mildly enlarged at 4.1 cm. 2. Mild to moderate tricuspid regurgitation. RV systolic pressure of 51 suggesting pulmonary hypertension. 3. There is enlargement of the right ventricle with severe reduction in RV systolic function. 4. Mild pulmonic insufficiency. 5. Severe left atrial enlargement with a volume index of 56. 6. No mitral valve prolapse. Mild mitral regurgitation. No evidence of mitral stenosis. There is apical tenting of the mitral leaflets consistent with a dilated left ventricle. 7. The left ventricle appears dilated with an end-diastolic dimension of 5.5 cm. Mild left ventricular hypertrophy with a posterior and interventricular septal wall thickness of 1.2 cm each. Severe reduction in LV systolic function with an estimated EF of 15% and global hypokinesis. There does appear to be evidence for left ventricular thrombus seen adherent to the apex, as well as in the inferior septal portion of the left ventricle. The findings of this were discussed with the consulting team. There was no evidence of apical thrombus seen in January of 2018 on the last echo. 8. Aortic valve opens well. It is sclerotic. There is no evidence of stenosis or insufficiency. 9. Aorta appears normal in visualized segments. 10. There is a suggestion of a pleural effusion on this study. 11. The IVC appears normal in size at 17 mm and does appear to collapse with Sniff maneuver. cc: MD Lucho Wray MD
[2019-02-13] MEDS ORDERED: POTASSIUM CHLORIDE 60 MEQ in NS 500 ML IV SCH (14:45)
[2019-02-13] MEDS: D5W 1,000 ML IV SCH (15:32)
--- NOTE | 2019-02-13 18:37 | INFECTIOUS DISEASE PROGRESS NO ---
DATE: 02/13/2019 PRESENT ILLNESS: Ms. French has mixed infiltrates with pneumonia and pulmonary edema as seen on CT scan yesterday. There is also a increasing leukocytosis and thrombocytopenia. MEDICATIONS: She is receiving vancomycin IV per pharmacy dosing and cefepime 2 g IV every 12 hours. PHYSICAL EXAMINATION: Vital Signs: Temperature is 98.3, pulse rate 114, respiratory rate 13, blood pressure 123/70, O2 saturation is 97% on room air. General: This is a chronically ill- appearing, middle-aged female. She is lying in bed, currently in no acute distress. HEENT: Atraumatic, normocephalic. I was unable to visualize her oral vestibule. She did open her eyes. Sclerae are icteric. Neck: Supple. Trachea is midline. Cardiovascular: Heart rate and rhythm are regular, and fast, sinus tachycardia on the monitor. Respiratory: Lung sounds are clear to auscultation in the upper lobes. Diminished in the mid and bases. No work of breathing is noted. Abdomen: Soft, flat, and nontender. Bowel sounds are active. There is an NG tube in place and tube feedings infusing. Integumentary: She has a PICC line in place to the right upper arm. The site is without edema, erythema, or drainage. Her right foot has several necrotic toes with some erythema noted to the forefoot. She does have a lot of pain with the sheets or anything touching her foot. Neurologic: She will turn her head side to side and open her eyes but is not verbalizing or following commands. LABORATORY AND X-RAY: Today her white count is 23.38. Hemoglobin 10.8, platelet count 65,000. No metabolic panel today. Clostridium difficile toxin and antigen were both negative. Blood cultures have shown no growth in the last 5 days. No imaging reports today; however, yesterday her chest CT showed mixed infiltrates with both pneumonia and pulmonary edema and mild COPD. ASSESSMENT AND PLAN: Ms. French is being treated for pneumonia, and she has an increasing leukocytosis. The Clostridium difficile is negative so at this time we will change her antibiotics by discontinuing the cefepime and adding on meropenem 2 g IV every 8 hours. We will also continue the vancomycin. I have also put in orders for urine Legionella and pneumococcal antigen specimens to be collected. These plans have been discussed with and recommended by Dr. Mason. COMORBIDITIES: For Ms. French include diabetes mellitus with noncompliance coronary artery disease, and history of gastric bypass. Dictated by CURRY Tucker for Arian Mason MD cc: Arian Mason MD [facility]
--- NOTE | 2019-02-13 19:45 | CONSULTATION ---
DATE OF CONSULTATION: 02/13/2019 IMPRESSION: 1. Recent acute on chronic systolic heart failure now improved with vigorous diuresis over the last 48 hours. 2. Severe dilated nonischemic cardiomyopathy. 3. Left ventricular thrombus. 4. Atherosclerotic coronary disease with history of previous coronary angioplasty/stenting of left circumflex coronary in the past. 5. Left lower lobe pneumonia. 6. Thrombocytopenia and suspected disseminated intravascular coagulation. 7. Opiate abuse. 8. Hypertension. 9. Hyperlipidemia. 10. Peripheral vascular disease. 11. Dementia. Patient currently is currently encephalopathic. 12. History of transient ischemic attack. RECOMMENDATIONS: 1. Given resolution of pulmonary edema, reduce Lasix to once daily. 2. Continue metoprolol. 3. Supplement potassium. 4. Anticoagulation when acceptable from a hematology standpoint. HISTORY: This 57-year-old -[place] female with history of severe dilated nonischemic cardiomyopathy, atherosclerotic coronary disease with previous coronary angioplasty/stenting of left circumflex coronary, peripheral vascular disease, diabetes mellitus, type 2, hypertension, hyperlipidemia, opiate abuse, and some degree of dementia was recently admitted, more than a week ago on 02/05/2019 with lethargy and malaise. She was felt to have sepsis secondary to left lower lobe pneumonia. She also has had thrombocytopenia and was felt to have DIC. During recent hospital course she developed evidence of pulmonary edema in addition to her pneumonia. She was vigorously diuresed over the last 48 hours. Echocardiography today reports left ventricular thrombus. When I see her, she is confused and lethargic. She is not interactive. PAST MEDICAL HISTORY: 1. Severe dilated nonischemic cardiomyopathy with left ejection fraction of 15%. 2. Atherosclerotic coronary disease with previous coronary angioplasty/stenting of left circumflex coronary in the past 3. Hypertension. 4. Hyperlipidemia. 5. Type 2 diabetes mellitus. 6. Hypothyroidism. 7. Peripheral vascular disease. 8. Transient ischemic attack in the past. 9. Gastroesophageal reflux disease. 10. Dementia. PAST SURGICAL HISTORY: Peripheral artery angioplasty lower extremity, coronary angioplasty/stenting, gastric bypass procedure, cholecystectomy, tubal ligation, hysterectomy, and partial gastrectomy. ALLERGIES: No known drug allergies. MEDICATIONS PRIOR TO ADMISSION: As listed. SOCIAL HISTORY: She has history of cigarette use/smoking and opiate abuse. FAMILY HISTORY: Not available. REVIEW OF SYSTEMS: Cannot be obtained given patient's encephalopathy. PHYSICAL EXAMINATION: General: This is a chronically ill-appearing, middle- aged -[place]ian female who appears older than stated age in restraints who is confused and somewhat lethargic. Vital signs: Blood pressure 123/70, heart rate 114, oxygen saturation 97% on room air. HEENT: Extraocular movements appear intact. Mucous membranes are moist. Neck: Supple. Jugular distention cannot be appreciated. There are no carotid bruits. Chest: Clear to auscultation anteriorly. Cardiac Exam: Reveals a regular rate and rhythm without appreciable murmur or gallop. Abdomen: Soft, bowel sounds audible. Extremities: Without edema. There are ischemic changes distally involving the foot on the right lower extremity. Neurologic: Reveals her awake but somewhat drowsy. She is not interactive. She moves all 4 extremities equally well. PERTINENT DATA: Twelve lead EKG, dated 02/10/2019 demonstrates sinus tachycardia, left atrial abnormality, low voltage QRS in limb leads and nonspecific T-wave abnormality. LABORATORY DATA: Includes a white blood cell count 23.38, hematocrit 33.2, hemoglobin 10.8, platelet count 99402. Sodium 142, potassium 2.6. Chloride 100. [*carbon dioxide 36. BUN 44, creatinine 0.8. Glucose 169. cc: Florian Singleton MD [facility]
[2019-02-13 21:56] LABS: AGAP 11; BUN 44 mg/dL (8-22); CALCIUM 8.4 mg/dL (8.8-10.2); CHLORIDE 102 mmol/L (98-107); COSMO 311; CREATININE 0.9 mg/dL (0.5-0.9); ESTIMATED GFR > 60; GLUCOSE 223 mg/dL (70-104); POTASSIUM 3.4 mmol/L (3.5-5.1); SODIUM 147 mmol/L (136-145); TCO2 34 mmol/L (25-35)
--- NOTE | 2019-02-13 23:27 | NEPHROLOGY PROGRESS NOTE ---
DATE: 02/13/2019 SUBJECTIVE: She is about the same. Eyes are open but is not able to answer me or follow any commands. OBJECTIVE: Vital Signs: Blood pressure 104/75, heart rate 114, respirations 15. General: No acute distress. Skin: Warm and dry. Eyes: Conjunctivae are pink. Neck: Neck veins are not distended. Heart: Regular. Lungs: Equal. Abdomen: Benign. Extremities: No edema. IMPRESSION: Acute kidney injury, cardiorenal. Creatinine is now 0.8. She does have electrolyte abnormalities, but it appears the primary team is addressing this. I do not have anything further to add so I will sign off. If I can be of further assistance, please do not hesitate to call. cc: Remi Zabala MD
[2019-02-14] MEDS: D5W 1,000 ML IV SCH ×3 (00:03→20:04)
[2019-02-14] MEDS ORDERED: POTASSIUM CHLORIDE 20% LIQUID PO ONE (01:49)
[2019-02-14] MEDS: MERREM 2 GM in NS 50 ML IV SCH (02:01)
[2019-02-14 05:28] LABS: BASO# 0.02 X1000 (0.0-0.2); BASO% 0.1 % (0.0-0.8); EOS# 0.13 X1000 (0.0-0.7); EOS% 0.6 % (0.0-10.0); HEMATOCRIT 30.3 % (37.0-47.0); HEMOGLOBIN 9.6 g/dL (12.0-16.0); IMM GRAN# 0.07 X1000 (0.0-0.04); IMM GRAN% 0.3 % (0.0-0.5); LYMPH# 1.15 X1000 (1.2-3.4); LYMPH% 5.6 % (20.5-51.1); MCH 22.3 PG (27-31); MCHC 31.7 g/dL (33-37); MCV 70.3 FL (81-99); MONO# 3.17 X1000 (0.11-0.59); MONO% 15.3 % (1.7-9.3); NEUT# 16.14 X1000 (1.4-6.5); NEUT% 78.1 % (42.2-75.2); PLT 63 X1000 (130-400); RBC 4.31 XMIL (4.2-5.4); RDW 21.8 % (11.5-14.5); WBC 20.68 X1000 (4.8-10.8)
[2019-02-14] MEDS: HUMALOG SUBQ SCH ×4 (06:14→20:36)
[2019-02-14] MEDS: PROTONIX IV SCH (06:14)
[2019-02-14] MEDS: THYROID PO SCH (06:14)
[2019-02-14 06:35] LABS: AGAP 13; ALB/GLOB RATIO 1.3; ALBUMIN 3.2 g/dL (3.5-5.0); ALKALINE PHOSPHATASE 257 U/L (32-104); BUN 43 mg/dL (8-22); CALCIUM 8.1 mg/dL (8.8-10.2); CHLORIDE 101 mmol/L (98-107); COSMO 324; CREATININE 0.9 mg/dL (0.5-0.9); ESTIMATED GFR > 60; GLUCOSE 424 mg/dL (70-104); GOT 36 U/L (10-30); GPT 61 U/L (10-36); SODIUM 148 mmol/L (136-145); TCO2 34 mmol/L (25-35); TOTAL BILIRUBIN 1.91 mg/dL (0.20-1.00); TOTAL PROTEIN 5.7 g/dL (6.3-8.3)
[2019-02-14] MEDS: VANCOMYCIN 1.4 GM in NS 250 ML IV SCH (06:40)
[2019-02-14 07:44] LABS: EOS 2 % (1-10); LYMPHS 10 % (21-51); MONO 14 % (1-9); NRBC 1 % (0-0); SEGS 74 % (42-75)
[2019-02-14 07:45] LABS: ANISOCYTOSIS 2+; HYPOCHROM 2+; MICROCYTOSIS 2+; POIKILOCYTOSIS 1+; TARGET CELLS 1+
[2019-02-14] MEDS: PLAVIX PO SCH (08:45)
[2019-02-14] MEDS: LASIX IV SCH (08:45)
[2019-02-14] MEDS: LANTUS INSULIN SUBQ SCH (08:45)
[2019-02-14] MEDS: ASPIRIN PO SCH (08:45)
[2019-02-14] MEDS: TOPROL XL PO SCH (08:45)
[2019-02-14] MEDS ORDERED: LOVENOX 1 MG/KG SUBQ SCH (09:45)
--- NOTE | 2019-02-14 10:37 | PROGRESS NOTE ---
DATE: 02/14/2019 SUBJECTIVE: Patient continues to be nonverbal. According to nursing staff, she has been fine. No acute issues noted overnight. OBJECTIVE: Vital Signs: Temperature 98.2 degrees, heart rate 113, respiratory rate 14, blood pressure 124/70, O2 saturation 98% on room air. General Examination: This is a chronically ill- appearing, 58-year-old female, lying in bed in no acute distress. HEENT: Head is normocephalic, atraumatic. Mucous membranes dry. An NG tube in place with tube feeding running. Neck: No JVD noted. No carotid bruits. No lymphadenopathy. No thyromegaly. Cardiovascular exam: S1, S2 heard. No murmurs, gallops, or rubs. Regular rate and rhythm. Respiratory exam: Decreased breath sounds globally with minimal crackles noted in both pulmonary bases. Patient is not using any accessory muscles or having work of breathing. Abdomen: Soft. A little bit distended. Bowel sounds present, but distant. No organomegaly noted. Extremities: Both upper and lower extremities are calm to touch with discoloration of toes on the right foot. Neurological exam: Patient is awake, but does not answer any questions. She does not really track. The patient moves 4 extremities spontaneously. LABORATORY DATA: White cell count 20.68, hemoglobin 9.6, hematocrit 38.3, platelets 63 with BMP that reveals sodium 148, potassium 4.0, creatinine 0.9, glucose 424. ASSESSMENT AND PLAN: 1. Congestive heart failure. The patient is not verbal. Because of this residual pulmonary edema, Lasix has been reduced to once daily. The patient has been evaluated by Cardiology. We will continue to monitor. 2. Left ventricular thrombus is what we found on the ultrasound of the heart that we have done yesterday, so I think considering her thrombocytopenia I will start this patient with Arixtra 7.5 mg subcutaneous daily. 3. Peripheral vascular disease. Patient has history of stents placed on both femoral arteries. Right foot discoloration is still there, is not getting worse. We will continue to monitor. General Surgery is following this patient. 4. Thrombocytopenia. The platelet count is 63 today, which is pretty much the same. At this point, we will continue to monitor. 5. Hypercalcemia most likely related to hyperparathyroidism, resolved. 6. Acute liver injury. Labs continues to improve. We will continue to monitor. 7. Opiate abuse. The patient has been on Suboxone, but of course at this point he is confused. He is not receiving anything. 8. Left lower lobe pneumonia. Patient is on vancomycin and meropenem. The white cell count is still elevated, so that is why cefepime was changed for meropenem. Infectious Disease is following this patient. We will follow recommendations. cc: Lucho Gomez MD
[2019-02-14] MEDS: ARIXTRA SUBQ SCH (10:49)
[2019-02-14] MEDS ORDERED: MERREM 2 GM in NS 50 ML IV SCH (13:00)
[2019-02-14] MEDS: MERREM 2 GM in NS 100 ML IV SCH ×2 (13:53→20:39)
[2019-02-14] MEDS ORDERED: BLISTEX MEDICATED BERRY LIP BALM TOP PRN (17:28)
[2019-02-14] MEDS ORDERED: LOPRESSOR IV ONE (23:05)
[2019-02-14] MEDS ORDERED: LANOXIN IV ONE (23:05)
[2019-02-15] MEDS: MERREM 2 GM in NS 100 ML IV SCH ×3 (04:09→21:18)
[2019-02-15] MEDS: SODIUM CHLORIDE 0.9% INJ SCH (05:45)
[2019-02-15] MEDS: HUMALOG SUBQ SCH ×4 (05:45→21:18)
[2019-02-15] MEDS: PROTONIX IV SCH ×2 (05:45→06:03)
[2019-02-15] MEDS: THYROID PO SCH ×2 (05:46→06:03)
[2019-02-15] MEDS: D5W 1,000 ML IV SCH (05:54)
[2019-02-15 06:41] LABS: BASO# 0.03 X1000 (0.0-0.2); BASO% 0.1 % (0.0-0.8); EOS# 0.19 X1000 (0.0-0.7); EOS% 0.8 % (0.0-10.0); HEMATOCRIT 29.7 % (37.0-47.0); HEMOGLOBIN 9.4 g/dL (12.0-16.0); IMM GRAN# 0.23 X1000 (0.0-0.04); IMM GRAN% 0.9 % (0.0-0.5); LYMPH# 1.85 X1000 (1.2-3.4); LYMPH% 7.5 % (20.5-51.1); MCH 22.1 PG (27-31); MCHC 31.6 g/dL (33-37); MCV 69.7 FL (81-99); MONO# 4.11 X1000 (0.11-0.59); MONO% 16.7 % (1.7-9.3); NEUT# 18.15 X1000 (1.4-6.5); PLT 51 X1000 (130-400); RBC 4.26 XMIL (4.2-5.4); RDW 21.6 % (11.5-14.5); WBC 24.56 X1000 (4.8-10.8)
[2019-02-15 06:51] LABS: AGAP 12; ALBUMIN 2.9 g/dL (3.5-5.0); ALKALINE PHOSPHATASE 224 U/L (32-104); BUN 32 mg/dL (8-22); CALCIUM 7.4 mg/dL (8.8-10.2); CHLORIDE 96 mmol/L (98-107); COSMO 293; CREATININE 0.7 mg/dL (0.5-0.9); ESTIMATED GFR > 60; GLUCOSE 286 mg/dL (70-104); GOT 28 U/L (10-30); GPT 49 U/L (10-36); POTASSIUM 2.9 mmol/L (3.5-5.1); SODIUM 138 mmol/L (136-145); TCO2 30 mmol/L (25-35); TOTAL BILIRUBIN 1.58 mg/dL (0.20-1.00); TOTAL PROTEIN 5.9 g/dL (6.3-8.3)
[2019-02-15] MEDS ORDERED: POTASSIUM CHLORIDE 60 MEQ in NS 500 ML IV ONE (07:39)
[2019-02-15] MEDS: TOPROL XL PO SCH (08:02)
[2019-02-15] MEDS: PLAVIX PO SCH (08:10)
[2019-02-15] MEDS: ARIXTRA SUBQ SCH (08:10)
[2019-02-15] MEDS: LANTUS INSULIN SUBQ SCH (08:10)
[2019-02-15 08:22] LABS: ANISOCYTOSIS 2+; BANDS 2 % (0-1); HYPOCHROM 2+; LYMPHS 6 % (21-51); MONO 12 % (1-9); NRBC 1 % (0-0); POIKILOCYTOSIS 1+; SEGS 78 % (42-75)
[2019-02-15 08:23] LABS: LARGE PLATELETS 1+; MICROCYTOSIS 2+; TARGET CELLS OCCASIONAL
[2019-02-15] MEDS: LOPRESSOR IV SCH ×3 (08:23→21:18)
--- NOTE | 2019-02-15 09:04 | PROGRESS NOTE ---
DATE: 02/15/2019 SUBJECTIVE: The patient is definitely a little bit more awake today. She answered very basic questions today. According to nursing staff, she has been tachycardic with 1 episode of nonsustained ventricular tachycardia. She received 1 dose of metoprolol and digoxin overnight. OBJECTIVE: Vital Signs: Temperature 98.1 degrees, heart rate 126, respiratory rate 18, blood pressure 123/74, O2 saturation 95% on room air. General Examination: This is a chronically ill- appearing, 58-year-old, female lying in bed, in no acute distress. HEENT: Head is normocephalic and atraumatic. Mucous membranes dry. NG tube in place with tube feeding running. Neck: No JVD noted. No carotid bruits. No lymphadenopathy. No thyromegaly. Cardiovascular Examination: S1 and S2 heard. No murmurs, gallops, or rubs. Regular rate and rhythm. Respiratory Examination: Decreased breath sounds globally. There are still minimal crackles noted in both bases but the patient is not using any accessory muscles or having work of breathing. Abdomen: Soft, nontender, nondistended. Bowel sounds present. At this time, no organomegaly noted. Extremities: Both upper and lower extremities are cold to touch with discoloration of toes on the right foot. Neurological Examination: The patient is awake and does answer very basic questions today. The patient moves 4 extremities spontaneously. Laboratory Data: White cell count 24.56, hemoglobin. 9.4, hematocrit 29.7, platelets 51,000. BMP reveals sodium 130, potassium 2.9, glucose 286. Normal renal function. ASSESSMENT AND PLAN: 1. Acute systolic congestive heart failure. Patient is on Lasix 40 mg intravenous every 24 hours and so far, she making good amount of urine. In the last 24 hours, she has made. 2.7 L of urine. At this point, we will continue with the same management. Cardiology is following this for further recommendations. 2. Left ventricular thrombus. The patient has been started on Arixtra 7.5 mg subcutaneous daily, considering her history of thrombocytopenia, 3. Peripheral vascular disease. Right foot discoloration noted, is not getting worse though. We will continue to monitor. General surgery is also following this patient. 4. Thrombocytopenia. Platelet count today is 51,000. Yesterday, it was 63,000. No signs of overt bleeding. At this point, we will continue to monitor. 5. Hypercalcemia, resolved. 6. Acute liver injury. Bilirubin is getting a little bit higher in the last 3 to 4 days. ALT and AST continue to improve slowly. We will continue to monitor. 7. Opiate abuse noted. The patient has been on Suboxone according to son but she is not taking any medication right now. 8. Left lower lobe pneumonia. Patient is on vancomycin and meropenem. White cell count continues to be elevated. She is not on any steroids. Infectious disease is following this patient. We will follow recommendations. 9. Disposition. We will continue to monitor this patient closely. 10. Hypokalemia. We will replete the patient's potassium today. cc: Lucho Gomez MD
[2019-02-15] MEDS: LASIX IV SCH (11:10)
[2019-02-15] MEDS: VANCOMYCIN 1.4 GM in NS 250 ML IV SCH (16:53)
[2019-02-16] MEDS: LOPRESSOR IV SCH ×4 (02:18→20:45)
[2019-02-16] MEDS: MERREM 2 GM in NS 100 ML IV SCH ×3 (04:53→20:55)
--- NOTE | 2019-02-16 05:57 | Diag Imaging Result Doc PS360 ---
EXAM: CHEST-1 VIEW HISTORY: SOB TECHNIQUE: Portable chest single view COMPARISON: 02/13/2019 FINDINGS: No change in the right-sided PICC line with the nasogastric tube. There are basilar infiltrates and/or atelectasis. There is also small left pleural effusion. Mild cardiomegaly. IMPRESSION: Mild interval worsening. Electronically signed by Martell Araujo 02/16/2019 5:55 AM
[2019-02-16] MEDS: THYROID PO SCH (06:14)
[2019-02-16] MEDS: PROTONIX IV SCH (06:14)
[2019-02-16] MEDS: HUMALOG SUBQ SCH ×4 (06:18→20:44)
[2019-02-16 06:37] LABS: BASO# 0.03 X1000 (0.0-0.2); BASO% 0.1 % (0.0-0.8); EOS# 0.05 X1000 (0.0-0.7); EOS% 0.2 % (0.0-10.0); HEMATOCRIT 29.7 % (37.0-47.0); HEMOGLOBIN 9.3 g/dL (12.0-16.0); IMM GRAN# 0.31 X1000 (0.0-0.04); IMM GRAN% 1.3 % (0.0-0.5); LYMPH# 1.48 X1000 (1.2-3.4); LYMPH% 6.1 % (20.5-51.1); MCH 22.3 PG (27-31); MCHC 31.3 g/dL (33-37); MCV 71.2 FL (81-99); MONO# 3.21 X1000 (0.11-0.59); MONO% 13.2 % (1.7-9.3); NEUT# 19.29 X1000 (1.4-6.5); NEUT% 79.1 % (42.2-75.2); PLT 65 X1000 (130-400); RBC 4.17 XMIL (4.2-5.4); RDW 22.1 % (11.5-14.5); WBC 24.37 X1000 (4.8-10.8)
[2019-02-16 06:55] LABS: AGAP 17; ALB/GLOB RATIO 0.8; ALBUMIN 2.9 g/dL (3.5-5.0); ALKALINE PHOSPHATASE 228 U/L (32-104); BUN 31 mg/dL (8-22); CALCIUM 8.4 mg/dL (8.8-10.2); CHLORIDE 101 mmol/L (98-107); COSMO 307; CREATININE 0.8 mg/dL (0.5-0.9); ESTIMATED GFR > 60; GLUCOSE 336 mg/dL (70-104); GOT 31 U/L (10-30); GPT 43 U/L (10-36); POTASSIUM 3.1 mmol/L (3.5-5.1); SODIUM 144 mmol/L (136-145); TCO2 26 mmol/L (25-35); TOTAL BILIRUBIN 1.51 mg/dL (0.20-1.00); TOTAL PROTEIN 6.6 g/dL (6.3-8.3)
[2019-02-16 09:04] LABS: BANDS 6 % (0-1); MONO 10 % (1-9)
[2019-02-16 09:05] LABS: ANISOCYTOSIS 2+; HYPOCHROM 1+; LARGE PLATELETS 1+; LYMPHS 2 % (21-51); MICROCYTOSIS 2+; SEGS 82 % (42-75)
--- NOTE | 2019-02-16 09:25 | INFECTIOUS DISEASE PROGRESS NO ---
DATE: 02/16/2019 PRESENT ILLNESS: The patient has been treated for pneumonia. Currently, the x-ray shows bibasilar infiltrates versus atelectasis. I think that the patient does not have pneumonia anymore, and most likely it is atelectasis. I base that on the fact that she has been on a lot of antibiotics. She continues to have an elevated white cell count, and the chest x-rays are only showing possible infiltrate versus atelectasis, and there is not any definite call of infiltrate. Finally, the patient's Legionella and pneumococcal urinary antigens are negative also. MEDICATION: This is day 2 of treatment with a combination of vancomycin and meropenem. PHYSICAL EXAMINATION: Vital Signs: Temperature is 98.9 degrees, pulse 121, respirations 23, blood pressure 157/75. General: This is a chronically ill-appearing, middle-aged female. She seems to be in a delirium. HEENT: No drainage noted from the nose or ears. The patient continues to have a nasogastric tube down, through which she is receiving nutrition. Neck: No meningismus. Lungs: Clear to auscultation. Cardiovascular: Heart rate is regular. Abdomen: Soft and nontender. Extremities: The patient has a PICC in her right arm. The site is not red or swollen. The toes on the right foot, specifically toes 1 through 4, are gangrenous and tender. Thorax: The patient has a left-sided pacemaker. The site is not swollen or tender. Neurologic: The patient seems to be in a delirium. She turns her head, but she does not track with her eyes. She does not follow request to move her extremities, and she does not talk when I ask her to. IMAGING AND LABORATORY DATA: Chest x-ray shows bibasilar infiltrate versus atelectasis. Stool for Clostridium difficile is negative. CBC shows a white count of 24,370, hemoglobin 9.3, and platelet count 65,000. Creatinine is 0.8. GFR is greater than 60. Alkaline phosphatase is 228. The Legionella and pneumococcal urinary antigens are negative. ASSESSMENT AND PLAN: I think the patient's leukocytosis is due to the gangrenous toes on the right foot. I am going to continue the antibiotics, but I think she will need surgery. COMORBIDITIES: The patient has diabetes mellitus. She apparently has not been compliant in the past. She has a history of drug abuse. She has had a gastric bypass. cc: Arian Mason MD
--- NOTE | 2019-02-16 09:48 | PROGRESS NOTE ---
DATE: 02/16/2019 SUBJECTIVE: The patient is a little more awake today, but just mumbles unintelligible words. According to nursing staff, she has been persistently tachycardic, and even though she has been on metoprolol 5 every 6 hours, she is still tachy. OBJECTIVE: Vital Signs: Temperature 98.9 degrees, heart rate 121, respiratory rate 22, blood pressure 157/75, O2 saturation 97% on room air. General: This is a chronically ill-appearing, 58- year-old, female, lying in bed in no acute distress. HEENT: Head is normocephalic and atraumatic. Mucous membranes are very dry. NG tube in place with tube feeding running. Neck: No JVD noted. No carotid bruits. No lymphadenopathy. No thyromegaly. Cardiovascular: S1, S2 heard. No murmurs, gallops, or rubs. Regular rate and rhythm. Respiratory: Decreased breath sounds globally. Minimal coarse breath sounds noted in both pulmonary bases, definitely much better in comparing with previous days. The patient is not using any accessory muscles or having work of breathing. Abdomen: Soft, nontender, nondistended. Bowel sounds present. No organomegaly. Extremities: Both upper and lower extremities are cold to touch. There is also gangrenous of toes on the right foot, unchanged from the last few days. Neurological: The patient is awake, but does not answer any basic questions. She mumbles unintelligible words. The patient moves all 4 extremities spontaneously. LABORATORY DATA: White cell count 24.37, hemoglobin 9.3, hematocrit 29.7, platelets 65,000. BMP shows sodium 144, potassium 3.1, normal creatinine, with glucose 336. ASSESSMENT AND PLAN: 1. Left lower lobe pneumonia. The patient is on vancomycin and meropenem. Since admission, she has received vancomycin, and originally she was on Zosyn, but was changed to meropenem because of persistent leukocytosis. Today is day #2 of meropenem. I have talked with Dr. Mason about this pneumonia, and I think we both agree that I do not think this white cell count is coming from this pneumonia. The CT of the chest done 4 days ago showed mixed infiltrates. There is probably pneumonia and pulmonary edema. Considering that she has been on antibiotics for a prolonged period of time, I think what we have seen in the CT of the chest is most likely pulmonary edema. Another reason that could explain leukocytosis is probably the peripheral vascular disease with gangrenous toes. At this point, will continue with the same management. 2. Acute systolic congestive heart failure. The patient continues to be on Lasix 40 mg intravenously every 24 hours. The x-ray from today shows worsening infiltrate, so I think I will increase the doses of Lasix to 40 mg intravenously every 12 hours. So far, she is making a good amount of urine. Will continue with the same management. Cardiology following. 3. Left ventricular thrombus. That is what we found out on a recent echocardiogram, and considering her thrombocytopenia, we have started her on Arixtra 7.5 mg subcutaneously daily. Will continue to monitor. 4. Peripheral vascular disease. The patient has a history of stents placed in both femoral arteries. The patient has been evaluated by Surgery. They do not think the patient needs an emergent procedure. At this point, will continue to monitor this patient closely. I think the reason why this patient has this elevated white cell count is because of right gangrenous toes so I think she needs to be reevaluated and see if she needs surgery at this time. 5. Thrombocytopenia. The patient's platelet count is 65. Will continue to monitor. Hematology/Oncology is following this patient. 6. Hypercalcemia, resolved. 7. Acute liver injury. That is what we have seen at admission. ALT and AST were very elevated in the range of 400 to 500. At this point, those are getting better. Bilirubin is mildly elevated. We have ruled out hepatitis. At this point, will continue to monitor. 8. Opiate abuse. As per family, the patient has been on Suboxone for opiate abuse, but she is not taking any medication here. 9. Persistent encephalopathy. I do not have any explanation for that condition. So far, she has been encephalopathic, and a CT scan of the head has been ordered that is normal. Because of his persistent encephalopathy, I am planning to order an MRI of the brain with and without contrast, and we are going to consult Neurology. 10. Disposition. The patient continues to be ill. As per family request, I called [facility], and I talked with a doctor on the Internal Medicine Service to see if this patient can be accepted. They answered that according to the clinical situation of the patient, they do not see any advantage to transfer this patient over there. They also mention if one of the specialists that are following this patient think that a different procedure or different treatment can be provided in [facility], then we need to recontact them, but at this point, they said that the patient does not need to be transferred over there. cc: Lucho Gomez MD [facility]
[2019-02-16] MEDS: ARIXTRA SUBQ SCH (09:50)
[2019-02-16] MEDS: PLAVIX PO SCH (09:51)
[2019-02-16] MEDS: LASIX IV SCH ×2 (09:51→20:45)
[2019-02-16] MEDS: LANTUS INSULIN SUBQ SCH (09:51)
[2019-02-16] MEDS: POTASSIUM CHLORIDE 20% LIQUID PO SCH (13:02)
[2019-02-16] MEDS: VANCOMYCIN 1.4 GM in NS 250 ML IV SCH (16:29)
--- NOTE | 2019-02-16 21:59 | CONSULTATION ---
DATE OF CONSULTATION: 02/16/2019 REASON FOR CONSULT: Altered mental status. HISTORY OF PRESENT ILLNESS: This is a 58-year-old, female, with multiple medical problems, who was admitted over a week ago with lethargy. Blood sugars were greater than 500 on arrival. It was felt that she had sepsis secondary to pneumonia. She was also placed on DKA protocol. She had acute kidney injury, mild hyponatremia, elevated liver function tests. She is being treated for those. She was found to have thrombocytopenia with suspected DIC. She also had acute on chronic systolic heart failure, which has since improved. Echocardiogram showed left ventricular thrombus. Head CT on arrival did not show acute findings. The patient has been persistently altered during her stay, although there is documentation today that she was a little more awake compared to previous. Neurology has been consulted in this regard. PAST MEDICAL HISTORY: 1. Type 2 diabetes, uncontrolled. 2. Hypertension. 3. Coronary artery disease, with stents. 4. Gastric bypass. 5. Hypothyroidism. 6. Hypoparathyroidism. 7. Severe dilated nonischemic cardiomyopathy. 8. Opiate abuse. 9. Hyperlipidemia. 10. Peripheral vascular disease. 11. Reported TIA. 12. Reported dementia. 13. GERD. FAMILY HISTORY: Unobtainable. SOCIAL HISTORY: There has been tobacco use at least in the past. Opiate abuse. No alcohol or illicits. ALLERGIES: No known drug allergies listed in the chart. CURRENT MEDICATIONS: Reviewed and in the chart: Plavix, Arixtra. REVIEW OF SYSTEMS: Unobtainable due to patient factors. PHYSICAL EXAMINATION: She is afebrile, blood pressure 127/73, pulse 119, respirations 14, oxygen saturation 96% on room air. Ms. French is supine in bed, resting with eyes closed. She briefly opens her eyes and looks in my direction when I call her name. She opens her eyes a bit longer with tactile stimulation. She easily drifts back to sleep and requires repeated arousal. She mumbles incoherently. No commands. Pupils are equal, round, and reactive to light. There is horizontal eye movement with passive head turning. There is inconsistent blink to threat. Face appears symmetric with equal activation. Tone appears equal in the limbs. There is not obvious focal asymmetry on limited strength testing. She responds to mild noxious sensory stimulus in all extremities. No clonus. Plantar response is downgoing bilaterally. Reflexes are diminished at the wrists, knees, and ankles bilaterally. She is not attentive enough for coordination or gait testing. DIAGNOSTICS: Head CT on arrival did not show acute findings. Echocardiogram 3 days ago showed evidence of thrombus. White count 24, platelets 65,000. Fibrinogen 633, sodium 144, BUN 31, creatinine 0.8, BUN as high as 51 four days ago. Blood sugars have been elevated, generally mid 200s to mid 400s. Calcium 8.4. AST as high as 500 on 02/07/2019, current 31. ALT as high as 286 on 02/05/2019, current 43. ASSESSMENT: 1. Global encephalopathy. No definite focal features. Likely multifactorial. 2. Left ventricular thrombus. 3. Uncontrolled diabetes, hyperglycemia. 4. Transaminitis. 5. Acute kidney injury In light of the ventricular thrombus, I would recommend repeat head CT to look for evidence of multifocal stroke. I will order a routine EEG as well. I recommend limiting sedating medications as able. Continue correcting her multiple toxic metabolic abnormalities. Continue close monitoring. Neuro checks. Thank you for the consultation. cc: Magnolia Tubbs MD [facility]
[2019-02-17] MEDS: LOPRESSOR IV SCH ×4 (02:19→20:34)
[2019-02-17] MEDS: MERREM 2 GM in NS 100 ML IV SCH ×3 (04:51→20:35)
[2019-02-17] MEDS: THYROID PO SCH ×3 (04:52→06:02)
[2019-02-17] MEDS: PROTONIX IV SCH ×3 (04:53→06:02)
[2019-02-17] MEDS: HUMALOG SUBQ SCH ×4 (06:41→20:32)
[2019-02-17 06:46] LABS: BASO# 0.02 X1000 (0.0-0.2); BASO% 0.1 % (0.0-0.8); EOS# 0.11 X1000 (0.0-0.7); EOS% 0.5 % (0.0-10.0); HEMATOCRIT 28.1 % (37.0-47.0); HEMOGLOBIN 8.8 g/dL (12.0-16.0); IMM GRAN# 0.26 X1000 (0.0-0.04); IMM GRAN% 1.1 % (0.0-0.5); LYMPH# 1.54 X1000 (1.2-3.4); LYMPH% 6.7 % (20.5-51.1); MCH 22.1 PG (27-31); MCHC 31.3 g/dL (33-37); MCV 70.6 FL (81-99); MONO% 14.4 % (1.7-9.3); NEUT# 17.62 X1000 (1.4-6.5); NEUT% 77.2 % (42.2-75.2); PLT 157 X1000 (130-400); RBC 3.98 XMIL (4.2-5.4); RDW 22.1 % (11.5-14.5); WBC 22.85 X1000 (4.8-10.8)
[2019-02-17 06:48] LABS: AGAP 12; ALB/GLOB RATIO 0.7; ALBUMIN 2.6 g/dL (3.5-5.0); ALKALINE PHOSPHATASE 222 U/L (32-104); BUN 34 mg/dL (8-22); CALCIUM 9.7 mg/dL (8.8-10.2); CHLORIDE 108 mmol/L (98-107); COSMO 314; CREATININE 0.7 mg/dL (0.5-0.9); ESTIMATED GFR > 60; GLUCOSE 218 mg/dL (70-104); GOT 29 U/L (10-30); GPT 34 U/L (10-36); POTASSIUM 3.2 mmol/L (3.5-5.1); SODIUM 151 mmol/L (136-145); TCO2 31 mmol/L (25-35); TOTAL BILIRUBIN 0.96 mg/dL (0.20-1.00); TOTAL PROTEIN 6.2 g/dL (6.3-8.3)
--- NOTE | 2019-02-17 07:02 | PULMONOLOGY PROGRESS NOTE ---
DATE: 02/16/2019 SUBJECTIVE: The patient will open her eyes when questions are asked. She attempts to answer the questions but responses are not intelligible. OBJECTIVE: Vital Signs: The patient has been afebrile for the last 24 hours. Blood pressure 130/81, heart rate 93, respiratory rate 14, oxygen saturation 93% on room air. HEENT: Pupils are equal and reactive. Oropharynx appears clear. Neck is supple. Chest reveals faint crackles in the lung bases. Cardiac Examination: S1, S2. Abdomen is soft. Extremities reveal gangrenous toes 1 through 4 on the right foot. Laboratories: White blood count 24,000, hemoglobin 9.3, platelet count 65,000. Sodium 144, potassium 3.1, chloride 101, bicarbonate 26, BUN 31, creatinine 0.8, calcium 1.4. Bilirubin 1.5. Chest x-ray reveals some atelectasis at the left base which may be slightly improved. IMPRESSION: A 58-year-old with: 1. Pneumonia with continued improvement. The patient continues to have leukocytosis and I agree with Dr. Mason that this may be related to her ischemic foot/toes. 2. Nonischemic cardiomyopathy. 3. Encephalopathy. 4. Hypercalcemia, which is now treated appropriately and she is now normocalcemic. 5. Resolving acute liver failure. 6. Peripheral vascular disease. 7. Encephalopathy without improvement. RECOMMENDATIONS: 1. Continue bronchial hygiene for pneumonia/atelectasis. 2. Antibiotics under the direction of Dr. Arian Mason. 3. Following with you. No changes recommended at this time. cc: Lucas Graves MD
--- NOTE | 2019-02-17 07:40 | GENERAL SURGERY PROGRESS NOTE ---
DATE: 02/16/2019 SUBJECTIVE: Patient is somewhat improved. She was moved to the floor. She remains nonresponsive. She is on nasogastric tube feeds. She has a persistent tachycardia. She is nonresponsive. OBJECTIVE: Cardiovascular: Tachycardia. Abdomen is soft, nontender, nondistended. Her right foot has demarcation of the toes approximately mid level with some ischemic changes noted in each toe. The foot is perfused but is slightly cooler than when compared to the left. The foot is viable. She has a persistent leukocytosis of 24. Creatinine is 0.8. Glucose has been as high as 300s. LFTs continue to improve. ASSESSMENT AND PLAN: This is a 58-year-old female with multiple issues. She does have a worsening chest x-ray. She has got stable dry and ischemic demarcation of her toes. I do not see any signs of purulence of her foot. I do not think this is the source of her leukocytosis. We will order Betadine paint to the toes and we can monitor this going forward. cc: Marcy Lopez MD
[2019-02-17 08:02] LABS: ANISOCYTOSIS 2+; BANDS 2 % (0-1); EOS 2 % (1-10); LYMPHS 4 % (21-51); MONO 12 % (1-9); NRBC 1 % (0-0); SEGS 80 % (42-75)
[2019-02-17 08:03] LABS: HYPOCHROM 2+; MICROCYTOSIS 2+; POIKILOCYTOSIS 1+; TARGET CELLS 1+
[2019-02-17] MEDS: PLAVIX PO SCH (09:28)
[2019-02-17] MEDS: LANTUS INSULIN SUBQ SCH (09:29)
[2019-02-17] MEDS: LASIX IV SCH (09:29)
[2019-02-17] MEDS: POTASSIUM CHLORIDE 20% LIQUID PO SCH (09:29)
[2019-02-17] MEDS: ARIXTRA SUBQ SCH (09:29)
[2019-02-17] MEDS ORDERED: 1/2 NS 1,000 ML IV SCH (13:00)
[2019-02-17] MEDS: 1/2 NS 1,000 ML IV SCH (13:34)
--- NOTE | 2019-02-17 13:40 | PROGRESS NOTE ---
DATE: 02/17/2019 SUBJECTIVE: Patient reports feeling comfortable. She continues somewhat confused. She knows she is at [facility], but is not aware of the date. She denies chest discomfort or shortness of breath. OBJECTIVE: Vital Signs: Blood pressure 143/79, heart rate 108, oxygen saturation 95% on room air. Neck: There is no significant jugular venous distention. Chest: Clear to auscultation anteriorly. Cardiac Exam: Reveals a regular rate and rhythm without appreciable murmur or gallop. Extremities: Without edema. Ischemic/gangrenous changes are noted on toes 1 through 4 on the right foot. LABORATORY DATA: Includes a white blood cell count of 22.85, hematocrit 28.1, hemoglobin 8.8, platelet count 157. Sodium 151, potassium 3.2, chloride 108, carbon dioxide 31. BUN 34, creatinine 0.7, glucose 218. IMPRESSION: 1. Recent acute on chronic systolic heart failure remains improved. Patient actually may be somewhat on the dry side presently and with associated hypernatremia. 2. Severe dilated nonischemic cardiomyopathy. 3. Left ventricular thrombus. Patient continues on Arixtra. 4. Atherosclerotic coronary disease with history of previous coronary angioplasty/stenting of left circumflex coronary in the past. 5. Pneumonia. 6. Recent thrombocytopenia and suspected disseminated intravascular coagulation. 7. Encephalopathy with history of dementia. 8. Opiate abuse. 9. Hypertension. 10. Hyperlipidemia. RECOMMENDATIONS: 1. Reduce Lasix to once daily. 2. Free water replacement. 3. Continue medical management of severe nonischemic cardiomyopathy with beta lis. Consider adding angiotensin receptor blocking agent or Entresto. cc: Florian Singleton MD
--- NOTE | 2019-02-17 14:51 | PROGRESS NOTE ---
DATE: 02/17/2019 SUBJECTIVE: Patient has no major complaints, but she is much more awake and alert today. OBJECTIVE: Blood pressure 143/79, heart rate of 108, respiratory rate 18, temperature 97.7 degrees, and 95% on room air.Cardiovascular: Regular rate and rhythm. Pulmonary: Bilateral breath sounds clear to auscultation. GI: Soft. Nontender. Nondistended. Bowel sounds are positive. LABORATORY DATA: White count is 22, hemoglobin and hematocrit 8 and 28, and platelets 157,000. Sodium is 151, potassium 3.2, and sugars 218. Procalcitonin was elevated consistent with pneumonia. PROBLEM LIST: 1. Left lower lobe pneumonia. She is on vancomycin and meropenem. Meropenem is day 4. Vancomycin is day 3. White count is still very high. We are going to continue pulmonary toilet. ID and Pulmonary are following. 2. Acute congestive heart failure. She seems to be doing okay. We will continue Lasix although she is becoming fairly hypernatremic. 3. LV thrombus. She is on Arixtra due to her thrombocytopenia. 4. PVD. She had ischemic changes and Surgery had been seeing her. 5. Thrombocytopenia is stable. Continue to monitor. 6. Hypercalcemia which was treated and mental status I think has improved somewhat at least from when I saw her last, which was over a week ago. 7. Disposition: Family requested transfer to [facility], but I know they were on diversion today and then yesterday they did not accept the patient having nothing else to offer. In any case, patient is stabilized, and I think we are going to be able to progress on taking the NG tube out and start working on that aspect. We will continue to follow. cc: Chapo Gomes MD
--- NOTE | 2019-02-17 15:00 | EEG REPORT ---
DATE: 02/16/2019 REFERRING PHYSICIAN: Magnolia Tubbs M.D. NIP WRAPPER: Lennie Bella. BACKGROUND INFORMATION/TECHNIQUE: This is a digitally recorded routine EEG with video. HISTORY: A 58-year-old female, admitted with lethargy and malaise. EEG is ordered to detect evidence of seizures. EEG FINDINGS: A posterior dominant alpha rhythm is not seen. The background consists of mixed frequencies, alpha, beta, and theta, with rare delta. No definite persistent focal slowing. No definite epileptiform discharges. No seizures. Hyperventilation was not performed. Photic stimulation does not alter the record. The patient becomes drowsy, but stage II sleep is not seen. EKG demonstrates regular intervals with PVCs. IMPRESSION AND CLINICAL CORRELATION: Abnormal routine electroencephalogram due to mild-to- moderate generalized slowing, indicative of a [id number] nonspecific encephalopathy. No epileptiform discharges or seizures seen on the current study. This does not rule out an underlying seizure disorder. Clinical correlation is recommended. cc: Magnolia Tubbs MD
[2019-02-17] MEDS: VANCOMYCIN 1.4 GM in NS 250 ML IV SCH (17:19)
[2019-02-17] MEDS: ZINC SULFATE PO SCH (17:20)
[2019-02-17] MEDS: TOPROL XL PO SCH (20:34)
--- NOTE | 2019-02-17 22:06 | PULMONOLOGY PROGRESS NOTE ---
DATE: 02/17/2019 SUBJECTIVE: The patient is arousable. She is slightly more interactive than yesterday. OBJECTIVE: Vital Signs: The patient has been afebrile for the last 24 hours. BP 143/79, heart rate 108, respiratory rate 18, oxygen saturation 95% on room air. HEENT: Pupils are equal and reactive. Oropharynx clear. Neck: Supple. Chest: Reveals occasional crackles at the left base. Cardiac: S1, S2. Abdomen: Soft. Extremities: Without edema. LABORATORIES: Zinc level is low at 0.49 mcg/mL. Sodium 151, potassium 3.2, chloride 108, bicarbonate 31, BUN 34, creatinine 0.7. Glucose 218, calcium 9.7. White blood count 22,000, hemoglobin 8.8, platelet count 157,000. No new x-ray. IMPRESSION: 1. A 58-year-old with pneumonia with radiographic improvement. 2. Nonischemic cardiomyopathy. 3. Left ventricular thrombus. 4. Encephalopathy. 5. Hypercalcemia. 6. Zinc deficiency. 7. Ongoing encephalopathy. Repeat scan planned by Neurology. PLAN: 1. Continue bronchial hygiene. 2. Continue antibiotics per Dr. Arian Mason. 3. Add zinc supplementation. 4. Follow up chest x-ray planned for . cc: Lucas Graves MD
--- NOTE | 2019-02-17 22:16 | PROGRESS NOTE ---
DATE: 02/17/2019 SUBJECTIVE: No major overnight events. The patient reports no major complaints to me. OBJECTIVE: Vital signs: Afebrile. Blood pressure 137/80, pulse 110, respirations 18, 100% on room air. General: Ms. French is a supine in bed, lying on her right side. She is actually awake today when I entered the room. She has her eyes open. She regards. She is much more alert today than when I saw her yesterday. She is, however, confused. She could not correctly answer orientation questions. She did not really follow commands for me either. She was able to speak a few word sentences that were off subject. HEENT: Pupils equal and reactive. She tracks. She spontaneously moves her eyes left and right and blinks to threat. Face appears symmetric. Strength exam: There is not definite focal asymmetry on limited strength testing. She is at least antigravity in her extremities. No clonus. Plantar response is downgoing bilaterally. DIAGNOSTICS: Routine EEG personally reviewed: Mild to moderate generalized slowing. No epileptiform discharges or seizures. LABS: Reviewed in the chart. ASSESSMENT AND PLAN: 1. Global encephalopathy without definite focal features most likely multifactorial. Much more awake and alert today compared to yesterday, but still confused. 2. Left ventricular thrombus. 3. Uncontrolled diabetes, hyperglycemia. 4. Transaminitis. 5. Acute kidney injury. 6. Pneumonia. There is improvement today compared to yesterday which is reassuring. Routine EEG did not show increased propensity to seizure. I would continue to monitor clinically, continue to correcting multiple toxic metabolic abnormalities. If she does not continue to improve we will be to consider further workup. cc: Magnolia Tubbs MD
[2019-02-18] MEDS: LOPRESSOR IV SCH ×3 (02:16→14:13)
[2019-02-18] MEDS: MERREM 2 GM in NS 100 ML IV SCH ×3 (04:40→21:01)
[2019-02-18] MEDS: PROTONIX IV SCH ×2 (05:27→05:59)
[2019-02-18] MEDS: THYROID PO SCH ×2 (05:28→06:00)
[2019-02-18] MEDS: HUMALOG SUBQ SCH ×4 (06:12→20:05)
[2019-02-18 06:50] LABS: AGAP 13; ALB/GLOB RATIO 0.7; ALBUMIN 2.6 g/dL (3.5-5.0); ALKALINE PHOSPHATASE 249 U/L (32-104); BUN 37 mg/dL (8-22); CALCIUM 10.1 mg/dL (8.8-10.2); CHLORIDE 109 mmol/L (98-107); COSMO 316; CREATININE 0.7 mg/dL (0.5-0.9); ESTIMATED GFR > 60; GLUCOSE 233 mg/dL (70-104); GOT 34 U/L (10-30); GPT 33 U/L (10-36); POTASSIUM 3.5 mmol/L (3.5-5.1); SODIUM 151 mmol/L (136-145); TCO2 29 mmol/L (25-35); TOTAL BILIRUBIN 0.97 mg/dL (0.20-1.00); TOTAL PROTEIN 6.3 g/dL (6.3-8.3)
[2019-02-18 07:08] LABS: BASO# 0.01 X1000 (0.0-0.2); BASO% 0.1 % (0.0-0.8); EOS# 0.11 X1000 (0.0-0.7); EOS% 0.6 % (0.0-10.0); HEMOGLOBIN 8.6 g/dL (12.0-16.0); IMM GRAN# 0.13 X1000 (0.0-0.04); IMM GRAN% 0.7 % (0.0-0.5); LYMPH# 1.29 X1000 (1.2-3.4); LYMPH% 6.6 % (20.5-51.1); MCH 22.2 PG (27-31); MCHC 30.7 g/dL (33-37); MCV 72.4 FL (81-99); MONO# 2.38 X1000 (0.11-0.59); MONO% 12.1 % (1.7-9.3); MPV 12.9 FL (7.4-10.4); NEUT# 15.76 X1000 (1.4-6.5); NEUT% 79.9 % (42.2-75.2); PLT 275 X1000 (130-400); RBC 3.87 XMIL (4.2-5.4); RDW 22.7 % (11.5-14.5); WBC 19.68 X1000 (4.8-10.8)
--- NOTE | 2019-02-18 07:26 | Diag Imaging Result Doc PS360 ---
EXAM: CHEST-PORTABLE HISTORY: pneumonia TECHNIQUE: Portable chest single view COMPARISON: 02/16/2019 FINDINGS: The lungs are well expanded. The heart is mildly prominent. Nasogastric tube in good position. There is a left-sided pacemaker. Atelectasis and/or infiltrates in the left base. The overall appearance is similar to the prior exam. IMPRESSION: Stable chest Electronically signed by Martell Araujo 02/18/2019 7:24 AM
[2019-02-18] MEDS: POTASSIUM CHLORIDE 20% LIQUID PO SCH (08:15)
[2019-02-18] MEDS: TOPROL XL PO SCH (08:16)
[2019-02-18] MEDS: ZINC SULFATE PO SCH (08:16)
[2019-02-18] MEDS: ARIXTRA SUBQ SCH (08:16)
[2019-02-18] MEDS: PLAVIX PO SCH (08:16)
[2019-02-18] MEDS: LANTUS INSULIN SUBQ SCH (08:16)
[2019-02-18] MEDS: 1/2 NS 1,000 ML IV SCH (08:17)
[2019-02-18] MEDS ORDERED: LASIX IV SCH (09:00)
--- NOTE | 2019-02-18 13:14 | PROGRESS NOTE ---
DATE: 02/18/2019 SUBJECTIVE: Ms. French presented with apparent global encephalopathy, and she has been improved. Dr. Tubbs saw her earlier in the week. She had initial blood sugars greater than 500, recent blood sugars in the 200s. She had initial hyponatremia with sodium later 151. Liver enzymes were elevated. There was echocardiogram evidence of left ventricular thrombus, but no imaging or clinical evidence of ischemic cerebrovascular event. Noncontrast CT of the brain was unremarkable. EEG showed generalized slowing, but no evidence of seizure. PHYSICAL EXAMINATION: On exam now, she is awake and alert. She moves her limbs spontaneously. She was slow and inconsistent in her responses to me, but answered some questions with dysarthric speech that I could understand. She followed some simple commands inconsistently. She was a little bit ataxic on finger to nose bilaterally. She counted fingers in the left visual field more consistently than the right, but there was not a clear consistent visual field cut. IMPRESSION: Multifactorial global encephalopathy. I do not have any new thoughts or new suggestions from Neurology standpoint. Nothing to add to Dr. Tubbs's earlier recommendations. Thanks for asking us to see Ms. French. cc: Daria Ibarra III, MD [facility]
[2019-02-18] MEDS ORDERED: 1/2 NS 500 ML IV ONE (13:23)
--- NOTE | 2019-02-18 13:38 | INFECTIOUS DISEASE PROGRESS NO ---
DATE: 02/18/2019 PRESENT ILLNESS: The patient is being treated for pneumonia. Her procalcitonin level is elevated at 0.8, which translates into the patient very likely having a pneumonia. MEDICATIONS: This is day 4 of treatment with the combination of vancomycin and meropenem. PHYSICAL EXAMINATION: Vital Signs: Temperature is 98.4 degrees, pulse 125, respirations 18, blood pressure 149/84. General: This is an ill-appearing middle-aged female. She is in no acute distress. Head, eyes, ears, nose and throat: She does not have any drainage coming from her nose or ears. I was unable to get a good view of her mouth. She does have a nasogastric tube down for which she gets tube feedings. Lungs: Clear to auscultation. Cardiovascular: Heart rate is regular. Abdomen: Soft and nontender. Thorax: The patient has a pacemaker present in the left side. The site is not swollen or draining. Extremities: Patient has a PICC in her right arm; that site too is not swollen or draining either. The patient does have gangrenous toes on the right foot. They are tender, but they are not draining. Neurologic: The patient today did follow request to move her arms and legs. The patient does attempt to speak, but I cannot understand what she is saying. LAB AND X-RAY: CBC shows a white count of 19,680, hemoglobin 8.6, platelet count 275,000. Creatinine 0.7 GFR is greater than 60. Procalcitonin is 0.8. Chest x-ray shows left lower lobe infiltrate. ASSESSMENT AND PLAN: The patient's white count is decreasing. I think it could be due to her pneumonia, but I also think it could be in part due to her gangrenous toes. My plan will be to continue vancomycin and meropenem. COMORBIDITIES: Diabetes mellitus, history of drug abuse, and gastric bypass. cc: Arian Mason MD
--- NOTE | 2019-02-18 13:46 | PROGRESS NOTE ---
DATE: 02/18/2019 SUBJECTIVE: The patient continues without chest discomfort or shortness of breath. She remains confused. OBJECTIVE: Vital Signs: Blood pressure 124/78, heart rate 122 with ECG monitor showing sinus tachycardia. Oxygen saturation 99% on room air. Neck: There is no significant jugular venous distention. Chest: Clear to auscultation. Cardiac Exam: Reveals a regular rate and rhythm without appreciable murmur, rub or gallop. Extremities: Without edema. LABORATORY DATA: Includes a white blood cell count of 19.68, hematocrit 28.0, hemoglobin 8.6, platelet count 2750. Sodium 151, potassium 3.5, chloride 109, carbon dioxide 29. BUN 37, creatinine 0.7, glucose 233. IMPRESSION: 1. Recent acute on chronic systolic heart failure, improved. Patient continues to manifest clinical evidence of intravascular volume depletion with associated hypernatremia. 2. Severe dilated nonischemic cardiomyopathy. 3. Left ventricular thrombus. Patient continues on Arixtra. 4. Atherosclerotic coronary disease with previous coronary angioplasty/stenting of left circumflex coronary in the past. 5. Pneumonia. 6. Recent thrombocytopenia and suspected disseminated intravascular coagulation. 7. Encephalopathy superimposed on dementia, probably multifactorial. 8. Opiate abuse. 9. Hypertension. 10. Hyperlipidemia. RECOMMENDATIONS: 1. Hold Lasix. 2. Continue to replace free water cautiously. 3. Continue beta lis. Consider adding angiotensin receptor blocking agent or Entresto once volume status euvolemic. cc: Florian Singleton MD
[2019-02-18] MEDS ORDERED: LANTUS INSULIN SUBQ ONE (14:18)
--- NOTE | 2019-02-18 14:41 | PROGRESS NOTE ---
DATE: 02/18/2019 SUBJECTIVE: Patient has no major complaints. OBJECTIVE: Vital Signs: Blood pressure is 124/78, heart rate of 122, respiratory rate 18, temperature 97.8 degrees, satting 99% on room air. Cardiovascular: Regular rate and rhythm. Pulmonary: Bilateral breath sounds. Clear to auscultation. GI: Soft, nontender, nondistended. Bowel sounds are positive. She has an NG in place. Neurologic: She is awake, she is alert, but she is not oriented at all. She is confused. She continues to just have issues with confusion and major issues there, so I am not quite sure what to do from that perspective. LABORATORY DATA: Her white count is 19 which is down from 22, H and H 8 and 28, platelets 275. Sodium still high 151, sugar of 233, albumin is still low. PROBLEM LIST: 1. Left lower lobe pneumonia. She is on vancomycin and meropenem day 4, day 5. 2. Hypernatremia, probably from free water restriction. We will increase free water. She is getting half-normal saline infusion. We will continue to follow. 3. Congestive heart failure. She is on Lasix per Cardiology. We will continue to monitor. 4. Left ventricular thrombus. She is on Arixtra until we can decide about more permanent issues involving her feeding tube. Continue to monitor closely. 5. Diabetes. Blood sugars are not well controlled. She is on diabetic tube feeds. I was hoping today we could transition her to oral tube feeds or just take her nasogastric tube out, but she seems more confused today. I am going to increase her Lantus to 20 and we will see how she is doing. DISPOSITION: Waiting for her mental status to improve enough that we can progress with PT and things of that nature, although I do think she is getting some PT at this point, and we are looking at [facility] once she stabilizes further. cc: Chapo Gomes MD
[2019-02-18] MEDS: VANCOMYCIN 1.4 GM in NS 250 ML IV SCH (16:23)
[2019-02-18] MEDS: LOPRESSOR PO SCH (19:43)
[2019-02-19] MEDS: LOPRESSOR PO SCH ×4 (01:46→20:05)
--- NOTE | 2019-02-19 01:54 | PULMONOLOGY PROGRESS NOTE ---
DATE: 02/18/2019 SUBJECTIVE: The patient was more awake and attentive and attentive this morning. She attempts to answer questions. OBJECTIVE: Vital Signs: The patient has been afebrile for the last 24 hours. Heart rate 118, respiratory rate 10, oxygen saturation 98%. HEENT: Pupils are equal and reactive. Oropharynx is clear. Neck: Supple. CHEST: Reveals occasional rhonchi bilaterally.Cardiac: S1, S2. Abdomen: Soft. EXTREMITIES: Without edema. LABORATORY DATA: Sodium 151, potassium 3.5, chloride 109, bicarbonate 29, BUN 37, creatinine 0.7. IMAGING: Chest x-ray reveals continued changes at the left base. IMPRESSION: A 58-year-old with: 1. Pneumonia with persistent radiographic changes. 2. Nonischemic cardiomyopathy. 3. Left ventricular thrombus. 4. Zinc deficiency on replacement therapy. 5. Encephalopathy with marginal improvement. 6. Hypercalcemia. PLAN: 1. Agree with increasing free water replacement given her hypernatremia. 2. Continue bronchial hygiene. 3. Continue antibiotics per Dr. Mason. 4. Continue zinc supplementation. cc: Lucas Graves MD
[2019-02-19] MEDS: MERREM 2 GM in NS 100 ML IV SCH ×3 (04:44→20:42)
[2019-02-19] MEDS: D50W SYRINGE IV PRN ×2 (05:55→06:36)
[2019-02-19 06:17] LABS: BASO# 0.01 X1000 (0.0-0.2); BASO% 0.1 % (0.0-0.8); EOS% 0.5 % (0.0-10.0); HEMATOCRIT 26.2 % (37.0-47.0); HEMOGLOBIN 7.8 g/dL (12.0-16.0); IMM GRAN# 0.09 X1000 (0.0-0.04); IMM GRAN% 0.5 % (0.0-0.5); LYMPH# 1.66 X1000 (1.2-3.4); LYMPH% 8.8 % (20.5-51.1); MCH 21.8 PG (27-31); MCHC 29.8 g/dL (33-37); MCV 73.2 FL (81-99); MONO# 1.58 X1000 (0.11-0.59); MONO% 8.3 % (1.7-9.3); MPV 12.3 FL (7.4-10.4); NEUT# 15.51 X1000 (1.4-6.5); NEUT% 81.8 % (42.2-75.2); PLT 364 X1000 (130-400); RBC 3.58 XMIL (4.2-5.4); RDW 23.1 % (11.5-14.5); WBC 18.95 X1000 (4.8-10.8)
[2019-02-19] MEDS: THYROID PO SCH (06:17)
[2019-02-19] MEDS: PROTONIX IV SCH (06:18)
[2019-02-19 06:32] LABS: AGAP 11; BUN 36 mg/dL (8-22); CALCIUM 10.3 mg/dL (8.8-10.2); CHLORIDE 111 mmol/L (98-107); COSMO 308; CREATININE 0.9 mg/dL (0.5-0.9); ESTIMATED GFR > 60; GLUCOSE 122 mg/dL (70-104); POTASSIUM 3.3 mmol/L (3.5-5.1); SODIUM 150 mmol/L (136-145); TCO2 28 mmol/L (25-35)
[2019-02-19] MEDS: HUMALOG SUBQ SCH ×4 (06:32→20:44)
[2019-02-19] MEDS: D5W 1,000 ML IV SCH ×2 (08:27→23:05)
[2019-02-19] MEDS: POTASSIUM CHLORIDE 20% LIQUID PO SCH (08:27)
[2019-02-19] MEDS: ZINC SULFATE PO SCH (08:27)
[2019-02-19] MEDS: PLAVIX PO SCH (08:27)
[2019-02-19] MEDS: ARIXTRA SUBQ SCH (08:28)
[2019-02-19] MEDS: LANTUS INSULIN SUBQ SCH (08:37)
--- NOTE | 2019-02-19 09:52 | PROGRESS NOTE ---
DATE: 02/19/2019 SUBJECTIVE: The patient continues to be awake but does not follow commands. She mumbles some unintelligible words. No acute issues noted as per nursing staff overnight. Her heart rate persists to be in the range of 100s and 120s. OBJECTIVE: Vital Signs: Temperature 98.2 degrees, heart rate 123, respiratory rate 16, blood pressure 150/88, and O2 saturation 100% on 5 L nasal cannula. General: This is a chronically ill- appearing, 58-year-old female lying in bed in no acute distress. HEENT: Head is normocephalic, atraumatic. Mucous membranes very dry. NG tube in place with tube feedings running. Neck: No JVD noted. No carotid bruits. No lymphadenopathy. No thyromegaly. Cardiovascular: S1, S2 heard. No murmurs, gallops, or rubs. Regular rate and rhythm. Respiratory: Decreased breath sounds globally. Minimal coarse breath sounds still noted in both pulmonary bases. The patient is not using any accessory muscles or having work of breathing. Abdomen: Soft. Nondistended. Bowel sounds present. No organomegaly. Extremities: Both upper and lower extremities cool to touch. There are dry gangrenous toes on the right foot and changes from the last few days. Peripheral pulses absent. Neurological: Patient is awake, but does not answer any questions. Mumbles unintelligible words. Moves 4 extremities spontaneously. LABORATORY DATA: White cell count 18.95, hemoglobin 7.8, hematocrit 26.2, and platelets 364,000. Sodium 150, potassium 3.3. Normal creatinine 0.9. Glucose 122. ASSESSMENT/PLAN: 1. Left lower lobe pneumonia. We will continue with vancomycin and meropenem. White cell count unfortunately continues to be elevated. Actually, it has not been changed in the last week. Today is day number 5 of treatment with vancomycin and meropenem. We will continue with the same management. 2. Acute on chronic systolic heart failure. Patient actually looks to be on the dry side. Lasix has been held. The patient because of the hypernatremia is going to be placed on D5W at 75 mL per hour. We will monitor in's and outs strictly. 3. Left ventricular thrombus. We will continue with Arixtra 7.5 mg subcutaneous daily considering her history of thrombocytopenia. We have checked also fibrinogen because at some point we suspected DIC but those returned normal. 4. Peripheral vascular disease. The patient has history of this condition when the stents are placed on both femoral arteries. At this point, what I think she has developed is dry gangrene. General Surgery is following, but they are not planning to do any emergent surgery in the near future. 5. Thrombocytopenia. Platelet count finally after the last 3 days completely back to normal. 6. Hypercalcemia. Calcium is a little bit high today. I do not think we are going to treat it. 7. Acute liver injury resolved. We do not know exactly what has triggered this problem but definitely much better. 8. History of opiate abuse aware. Patient has been on Suboxone for a few months. At this point, the patient is confused. 9. Global encephalopathy. The patient has persisted to be encephalopathic during her whole stay here in the hospital. Dr. Ibarra has evaluated this patient. EEG has been done, and also CT of the head at admission, and everything is okay. So at this point, we will continue with the same management. 10. Hypertension. Blood pressure is a little bit elevated, and patient persists to be tachycardic. The patient is receiving metoprolol 25 mg p.o. 6 hours. I think at this point, we are going to increase it to 50 mg p.o. q.6 hours. We will see how she does. cc: Lucho Gomez MD
--- NOTE | 2019-02-19 12:14 | PROGRESS NOTE ---
DATE: 02/19/2019 SUBJECTIVE: The patient continues awake and responsive, but remains confused. She denies any chest pain or shortness of breath. OBJECTIVE: Vital Signs: Blood pressure 144/87, heart rate 121. Neck: There is no significant jugular distention. Chest: Clear to auscultation. Cardiac: Regular rate and rhythm without appreciable murmur or gallop. Extremities: There is no evidence of peripheral edema. LABORATORY DATA: Includes a white blood cell count of 18.95, hematocrit 26.2, hemoglobin 7.8, platelet count 364,000. Sodium 150, potassium 3.3, chloride 111, carbon dioxide 28, BUN 36, creatinine 0.9, glucose 122. IMPRESSION: 1. Recent acute on chronic systolic heart failure, improved with diuresis. The patient continues to manifest evidence of intravascular volume depletion and associated hyponatremia. Lasix has been stopped. 2. Severe dilated nonischemic cardiomyopathy. 3. Left ventricular thrombus. The patient continues on Arixtra. 4. Atherosclerotic coronary disease. 5. Pneumonia. 6. Recent thrombocytopenia with suspected disseminated intravascular coagulation. 7. Encephalopathy superimposed on dementia. This is probably multifactorial. 8. Hypertension. 9. Hyperlipidemia. RECOMMENDATIONS: 1. Continue to hold Lasix. 2. Increase free water replacement. 3. Continue beta lis. Consider adding an angiotensin receptor blocking agent or Entresto once volume status is euvolemic. cc: Florian Singleton MD
[2019-02-20] MEDS: LOPRESSOR PO SCH ×4 (01:44→21:25)
--- NOTE | 2019-02-20 01:46 | PULMONOLOGY PROGRESS NOTE ---
DATE: 02/19/2019 SUBJECTIVE: The patient answers questions upon arrival, although she has some psychomotor retardation. She is without specific complaints. OBJECTIVE: Vital Signs: The patient has been afebrile for the last 24 hours. Blood pressure 116/80, heart rate 112, respiratory rate 14, oxygen saturation 100% on nasal cannula. HEENT: Pupils are equal and reactive. Oropharynx appears clear. Neck: Supple. Chest: Reveals shallow breath sounds bilaterally with decreased breath sounds left base. Cardiac: S1, S2. Abdomen: Soft. Extremities: Revealed no significant edema. LABORATORIES: White blood count 18.9, hemoglobin 7.8, platelet count 364,000. Sodium 150, potassium 3.3, chloride 111, bicarbonate 28, BUN 36, creatinine 0.9. Calcium 10.3. Most recent glucose 126. IMPRESSION: A 58-year-old with 1. Left lower lobe pneumonia. 2. Nonischemic cardiomyopathy. 3. Left ventricular thrombus. 4. Hypercalcemia. 5. Zinc deficiency. 6. Slowly improving encephalopathy. 7. Hypernatremia. PLAN: 1. Continue free water replacement. 2. Continue bronchial hygiene. 3. Continue antibiotics per Infectious Disease. 4. Continue oxygen for hypoxemic respiratory failure. cc: Lucas Graves MD
[2019-02-20] MEDS: MERREM 2 GM in NS 100 ML IV SCH ×3 (05:26→21:25)
[2019-02-20] MEDS: PROTONIX IV SCH ×2 (05:26→06:06)
[2019-02-20] MEDS: THYROID PO SCH ×2 (05:26→06:06)
[2019-02-20] MEDS: TYLENOL LIQUID PO PRN ×3 (06:04→21:25)
[2019-02-20 06:28] LABS: BASO# 0.02 X1000 (0.0-0.2); BASO% 0.1 % (0.0-0.8); EOS# 0.09 X1000 (0.0-0.7); EOS% 0.5 % (0.0-10.0); HEMOGLOBIN 7.4 g/dL (12.0-16.0); IMM GRAN# 0.12 X1000 (0.0-0.04); IMM GRAN% 0.7 % (0.0-0.5); LYMPH% 11.8 % (20.5-51.1); MCH 22.2 PG (27-31); MCHC 29.6 g/dL (33-37); MCV 74.9 FL (81-99); MONO# 1.36 X1000 (0.11-0.59); MPV 12.7 FL (7.4-10.4); NEUT# 13.39 X1000 (1.4-6.5); NEUT% 78.9 % (42.2-75.2); PLT 435 X1000 (130-400); RBC 3.34 XMIL (4.2-5.4); RDW 23.6 % (11.5-14.5); WBC 16.98 X1000 (4.8-10.8)
[2019-02-20] MEDS: HUMALOG SUBQ SCH ×5 (06:35→21:38)
[2019-02-20 06:49] LABS: AGAP 16; BUN 37 mg/dL (8-22); CALCIUM 10.2 mg/dL (8.8-10.2); CHLORIDE 102 mmol/L (98-107); COSMO 295; CREATININE 0.7 mg/dL (0.5-0.9); ESTIMATED GFR > 60; GLUCOSE 194 mg/dL (70-104); POTASSIUM 4.2 mmol/L (3.5-5.1); SODIUM 141 mmol/L (136-145); TCO2 23 mmol/L (25-35)
[2019-02-20 08:06] LABS: EOS 1 % (1-10); HYPOCHROM 1+; LYMPHS 12 % (21-51); MONO 8 % (1-9); SEGS 78 % (42-75)
[2019-02-20 08:07] LABS: ANISOCYTOSIS 1+; MICROCYTOSIS 1+; POLYCHROM 1+
[2019-02-20] MEDS: ARIXTRA SUBQ SCH (08:24)
[2019-02-20] MEDS: ZINC SULFATE PO SCH (08:24)
[2019-02-20] MEDS: LANTUS INSULIN SUBQ SCH (08:24)
[2019-02-20] MEDS: POTASSIUM CHLORIDE 20% LIQUID PO SCH (08:24)
[2019-02-20] MEDS: D5W 1,000 ML IV SCH ×2 (08:24→14:18)
[2019-02-20] MEDS: PLAVIX PO SCH (08:24)
--- NOTE | 2019-02-20 11:01 | PROGRESS NOTE ---
DATE: 02/20/2019 SUBJECTIVE: The patient continues to be awake. Does not follow commands. Mumbles some words, but she is able to say her last name. She reports not knowing where she is. She thinks that she is at home. No acute issues noted as per nursing staff overnight. She has mile tachycardia in the range of 110 to 100. OBJECTIVE: Vital Signs: Temperature 98.4 degrees, heart rate 107 respiratory rate 20, blood pressure 122/73, and O2 saturation 100% on room air. General: This is a chronically ill appearing 58-year-old female lying in bed in no acute distress. HEENT: Head is normocephalic, atraumatic. Mucous membranes very dry. NG tube in place with tube feed running. Neck: No JVD noted. No carotid bruits. No lymphadenopathy. Cardiovascular: S1, S2 heard. No murmurs, gallops, or rubs. Regular rate and rhythm. Respiratory: Decreased breath sounds globally. Minimal coarse breath sounds still noted in both pulmonary bases, but patient is not using any accessory muscles or having work of breathing. Abdomen: Soft, nondistended. Bowel sounds present. No organomegaly. Extremities: Both lower extremities continues to be cold to touch. There are some dry gangrenous toes in the right foot. There is a dressing covering both heels. Peripheral pulses absent. Neurological: Patient is awake, but does answer very basic questions like her name aware. She thinks that she is at home. Mumbles also some unintelligible words. Moves 4 extremities spontaneously. LABORATORY DATA: White cell count 16.99, hemoglobin 7.4 hematocrit 25, and platelets 435,000 with normal BMP. ASSESSMENT AND PLAN: 1. Left lower lobe pneumonia. The patient is on vancomycin and meropenem. White cell count is improving some. Today is day #[address] Mason from Infectious Disease is following this patient. We will follow recommendations. 2. Acute on chronic systolic heart failure. Patient continues to be on the dry side so the Lasix continues to be held. The patient does not look to be in any exacerbation at this point. We will continue to monitor ins and outs strictly. 3. Left ventricular thrombus. We will continue with Arixtra 7.5 mg subcutaneous daily. We will continue with the same management. 4. Peripheral vascular disease. We are aware of that. No surgical approach recommended for this patient. 5. Thrombocytopenia resolved. 6. Hypercalcemia. Calcium is 10.2 today and is normal. We will continue to monitor. 7. History of opiate abuse aware. The patient has been on Suboxone for a few months. At this point, patient is confused. 8. Global encephalopathy. Neurology is following this patient. There has been a little bit of improvement during the last couple of days. At this point, we will continue to monitor. 9. Hypertension/tachycardia. The patient has increased the doses of metoprolol to 50 mg p.o. q.6 hours. Since then, blood pressure and heart rate is better. We will continue to monitor. 10. Disposition: I have talked with social contact worker and ed case manager. I think we are trying to send her to [facility]. cc: Lucho Gomez MD MTDD
[2019-02-20] MEDS ORDERED: CATHFLO IV ONE (13:57)
[2019-02-20] MEDS ORDERED: STERILE WATER INJ. INJ ONE (13:57)
--- NOTE | 2019-02-20 14:45 | INFECTIOUS DISEASE PROGRESS NO ---
DATE: 02/20/2019 PRESENT ILLNESS: Ms. French is being treated for pneumonia. She also has some dry gangrene to her the toes on her right foot. MEDICATIONS: Today is day 11 of IV vancomycin per pharmacy dosing and day 6 of treatment with meropenem 2 g IV every 8 hours. PHYSICAL EXAMINATION: Vital Signs: Temperature is 98.4 degrees, pulse rate 107, respiratory rate 10, blood pressure 122/73, O2 saturation 100% on room air. General: This is a chronically ill- appearing, middle-aged female. She is lying in bed, currently in no acute distress. HEENT: Atraumatic, normocephalic. Oral mucous membranes are pink and moist. Conjunctivae are pale. Neck: Supple. Trachea is midline. Cardiovascular: Heart rate and rhythm are regular and fast, sinus tachycardia on the monitor. Respiratory: Breath sounds are diminished bilaterally with shallow breathing noted. No work of breathing is noted. Abdomen: Soft, round and nontender. Bowel sounds are active. There is an NG tube in place, and she is receiving tube feedings. Neurologic: She is awake and nonverbal with minimal responsiveness most of the time. She did stick out her tongue when I asked her to. Integumentary: Skin is cold and dry to the lower extremities with dry gangrene to the toes on the right. LABORATORY AND X-RAY: Today her white count is 16.98, hemoglobin 7.4, platelet count 435,000. Creatinine is 0.7, estimated GFR is greater than 60. Blood cultures have shown no growth after 5 days. She has had 2 separate checks for C difficile toxin and antigens which are negative. No imaging reports today. ASSESSMENT AND PLAN: Ms. French is being treated for pneumonia, and her white count is continuing to come down. For now, we will continue the vancomycin and meropenem as ordered. Unfortunately, she also has some dry gangrene to her toes of the right foot, which could also be another source of her leukocytosis. For now, we will continue vancomycin and meropenem as ordered and recheck blood work and a chest x-ray on Saturday. These plans have been discussed with and recommended by Dr. Mason. COMORBIDITIES: Diabetes mellitus, gastric bypass and history of drug abuse. Dictated by CURRY Tucker for Arian Mason MD cc: Arian Mason MD
[2019-02-20] MEDS: VANCOMYCIN 1.4 GM in NS 250 ML IV SCH (16:09)
--- NOTE | 2019-02-20 20:49 | PROGRESS NOTE ---
DATE: 02/20/2019 SUBJECTIVE: Patient continues awake and responsive. She denies chest discomfort or shortness of breath. She responds somewhat slowly questions but seems slowly more appropriate. OBJECTIVE: Vital Signs: Blood pressure 112/72, heart rate 100, oxygen saturation 100% on room air. Neck: There is no significant jugular venous distention. Chest: Clear to auscultation anteriorly. Cardiac exam: Reveals a regular rate and rhythm without appreciable murmur or gallop. Extremities: Without edema. LABORATORY DATA: Includes a white blood cell count of 16.98, hematocrit 25.0, hemoglobin 7.4, platelet count 435, sodium 141, potassium 4.2, chloride 102, carbon dioxide 23, BUN 37, creatinine 0.7, glucose 194. IMPRESSION: 1. Recent acute on chronic systolic heart failure improved with diuresis. The patient had some more recent intravascular volume depletion with hypernatremia, and this has been progressively improving. Lasix is still on hold. Patient manifests no signs of volume excess today. 2. Severe dilated nonischemic cardiomyopathy. 3. Left ventricular thrombus. Patient continues on Arixtra. 4. Atherosclerotic coronary disease. 5. Pneumonia. 6. Recent thrombocytopenia with suspected disseminated intravascular coagulation. 7. Encephalopathy superimposed on dementia. This to seems to be slowly improving. 8. Hypertension. 9. Hyperlipidemia. RECOMMENDATIONS: 1. Continue to hold Lasix. 2. Continue beta lis. 3. Ultimately consider adding angiotensin receptor blocking agent or Entresto once volume status is consistently stable. cc: Florian Singleton MD
--- NOTE | 2019-02-20 23:01 | PULMONOLOGY PROGRESS NOTE ---
DATE: 02/20/2019 SUBJECTIVE: The patient is conversant upon arrival. She does not appear to be oriented. OBJECTIVE: Vital Signs: The patient has been afebrile for the last 24 hours. Blood pressure 113/81, heart rate 98, respiratory rate 16, oxygen saturation 100% on room air. HEENT: Pupils are equal and reactive. Oropharynx appears clear. Neck: Supple. Chest: Reveals good air entry with crackles in the bases. Cardiac exam: S1, S2. Abdomen: Soft. Extremities: Without edema. LABORATORIES: The patient has had several episodes of hypoglycemia today, along with some sugars as high as 250. IMPRESSION: A 58-year-old with: 1. Left lower lobe pneumonia. 2. Nonischemic cardiomyopathy. 3. Left ventricular thrombus. 4. Hypercalcemia. 5. Zinc deficiency. 6. Encephalopathy. 7. Diabetes with fluctuating blood sugars. PLAN: 1. Continue tube feeds. 2. Decrease insulin dosing. We will increase frequency. 3. Continue antibiotics per Infectious Disease. 4. Anticipate chest x-ray on Saturday morning. cc: Lucas Graves MD
[2019-02-21] MEDS: HUMALOG SUBQ SCH ×6 (02:24→20:34)
[2019-02-21] MEDS: LOPRESSOR PO SCH ×4 (02:24→20:12)
[2019-02-21] MEDS ORDERED: D50W SYRINGE IV ONE (02:56)
[2019-02-21] MEDS: D50W SYRINGE IV PRN (03:15)
[2019-02-21] MEDS: MERREM 2 GM in NS 100 ML IV SCH ×4 (05:33→21:05)
[2019-02-21] MEDS: D5W 1,000 ML IV SCH ×2 (05:35→12:00)
[2019-02-21] MEDS: PROTONIX IV SCH (07:04)
[2019-02-21] MEDS: THYROID PO SCH (07:05)
[2019-02-21 07:15] LABS: AGAP 14; BUN 41 mg/dL (8-22); CALCIUM 9.7 mg/dL (8.8-10.2); CHLORIDE 97 mmol/L (98-107); COSMO 279; CREATININE 0.9 mg/dL (0.5-0.9); ESTIMATED GFR > 60; GLUCOSE 140 mg/dL (70-104); POTASSIUM 4.2 mmol/L (3.5-5.1); SODIUM 133 mmol/L (136-145); TCO2 22 mmol/L (25-35)
[2019-02-21 08:25] LABS: IMM GRAN% 1.1 % (0.0-0.5)
[2019-02-21 08:43] LABS: HEMOGLOBIN 6.8 g/dL (12.0-16.0); LYMPH% 13.6 % (20.5-51.1); MCH 22.5 PG (27-31); MCHC 29.6 g/dL (33-37); MCV 76.2 FL (81-99); MPV 12.1 FL (7.4-10.4); NEUT% 75.7 % (42.2-75.2); PLT 451 X1000 (130-400); RBC 3.02 XMIL (4.2-5.4); RDW 22.4 % (11.5-14.5); WBC 17.85 X1000 (4.8-10.8)
[2019-02-21 08:44] LABS: BASO# 0.03 X1000 (0.0-0.2); BASO% 0.2 % (0.0-0.8); EOS# 0.06 X1000 (0.0-0.7); EOS% 0.3 % (0.0-10.0); LYMPH# 2.43 X1000 (1.2-3.4); MONO# 1.82 X1000 (0.11-0.59); MONO% 10.2 % (1.7-9.3); NEUT# 13.51 X1000 (1.4-6.5)
[2019-02-21] MEDS: ARIXTRA SUBQ SCH (08:52)
[2019-02-21] MEDS: ZINC SULFATE PO SCH (08:52)
[2019-02-21] MEDS: PLAVIX PO SCH (08:52)
[2019-02-21] MEDS: POTASSIUM CHLORIDE 20% LIQUID PO SCH (08:52)
[2019-02-21] MEDS: LANTUS INSULIN SUBQ SCH (09:21)
--- NOTE | 2019-02-21 09:57 | PROGRESS NOTE ---
DATE: 02/21/2019 SUBJECTIVE: Patient is a little bit sleepy today, does not follow commands. She is nonverbal today, just mumbles some unintelligible words. Apparently blood sugar has been getting down overnight. OBJECTIVE: Vital Signs: Temperature degrees 97.5 degrees, heart rate 89, respiratory rate 18, blood pressure 115/74, O2 saturation 94% on room air. General: This is a chronically ill- appearing, 58-year-old female, lying in bed, in no acute distress. HEENT: Head is normocephalic, atraumatic. Mucous membranes very dry. NG tube in place with tube feedings running. Neck: No JVD noted. No carotid bruits. No lymphadenopathy. No thyromegaly. Cardiovascular: S1, S2 heard. No murmurs, gallops, or rubs. Regular rate and rhythm. Respiratory: Decreased breath sounds globally with minimal coarse breath sounds noted in both pulmonary bases. Patient is not using any accessory muscles or having work of breathing. Abdomen: Soft, a little bit distended but nontender to palpation. Bowel sounds present. No organomegaly. Extremities: Both lower extremities continue to be cold to touch. Gangrenous toes in the right foot that are getting a little bit worse. Dressing covering both heels. Peripheral pulses absent. Neurological: Patient is awake, but does not answer any basic questions. Moves 4 extremities spontaneously. LABORATORY DATA: White cell count 17.95, hemoglobin 6.8, hematocrit 23.2 platelets 451,000 with normal BMP except mild hyponatremia with sodium 133. ASSESSMENT AND PLAN: 1. Left lower lobe pneumonia. Today is day #12 for vancomycin, and meropenem day #7. White cell count is still elevated. Today is 17,000, basically pretty much similar in comparing with yesterday. Dr. Mason from Infectious Disease is following this patient. We will follow recommendations. 2. Acute on chronic systolic congestive heart failure. Patient continues to be on the dry side so Lasix continues to be held as per Cardiology recommendation. She does not look to be in any exacerbation, though. At this point, we are going to continue with the same management. 3. Left ventricular thrombus. We will continue with Arixtra. 4. Peripheral vascular disease. As we mentioned before, those dry gangrene in the right foot are getting a little bit worse. Surgeries monitoring this patient. We will follow recommendations. 5. Thrombocytopenia, resolved. 6. Hypercalcemia. Calcium continues to be mildly elevated. At this point, we will continue to monitor. 7. History of opiate abuse. Aware. 8. Global encephalopathy. Unfortunately, this patient is not improving. Neurology is following this patient. We will follow recommendations. I think at this point, considering her persistent encephalopathy, we will repeat a CT of the head. She is not a candidate for having an MRI of the brain. 9. Tachycardia. Heart rate continues to be borderline in the range of 100 to 110. Patient is on metoprolol 50 mg p.o. 6 hours. We will continue with the same management. 10. Disposition. At this point, we will continue to monitor this patient closely. We are trying to send this patient to [facility]. We will see what happens on Saturday. cc: Lucho Gomez MD
[2019-02-21 10:25] LABS: BANDS 1 % (0-1); LYMPHS 16 % (21-51); MONO 7 % (1-9); NRBC 5 % (0-0); SEGS 75 % (42-75)
[2019-02-21 10:26] LABS: ANISOCYTOSIS 2+; LARGE PLATELETS 1+; MICROCYTOSIS 2+; POIKILOCYTOSIS 1+; POLYCHROM 1+; TARGET CELLS 1+
[2019-02-21] MEDS ORDERED: NS 500 ML IV ONE (11:07)
--- NOTE | 2019-02-21 11:52 | PROGRESS NOTE ---
DATE: 02/21/2019 SUBJECTIVE: Patient is awake and responsive. She mumbles unintelligibly in response to questions. OBJECTIVE: Vital Signs: Blood pressure 115/76, heart rate 100, oxygen saturation 100% on room air. Neck: Jugular venous pressure appears to be normal based on inspection of the neck veins. Chest: Is clear to auscultation anteriorly. Cardiac: Regular rate and rhythm without appreciable murmur or gallop. Extremities: Are without edema. LABORATORY DATA: Includes a white blood cell count of [ hematocrit 23.0, hemoglobin 6.8, platelet count 451,000. Sodium 133 potassium 4.2, chloride 97, carbon dioxide 41, BUN 0.9. Potassium 4.2, chloride 97, carbon dioxide 22. BUN 41, creatinine 0.9. Glucose 140. IMPRESSION: 1. Chronic systolic heart failure. Volume status appears to be near euvolemic. 2. Severe dilated nonischemic cardiomyopathy. 3. Left ventricular thrombus. 4. Atherosclerotic coronary disease. 5. Pneumonia. 6. Recent DIC which appears to have resolved. 7. Encephalopathy. Superimposed on dementia. 8. Hypertension. 9. Hyperlipidemia. RECOMMENDATIONS: 1. Continue on Lasix. 2. Continue beta lis. 3. Start low-dose ARB. cc: Florian Singleton MD [facility] CENTERTrinidad
[2019-02-21] MEDS: COZAAR PO SCH (11:59)
[2019-02-21] MEDS: VANCOMYCIN 1.4 GM in NS 250 ML IV SCH (22:57)
[2019-02-22] MEDS: HUMALOG SUBQ SCH ×6 (02:34→21:22)
[2019-02-22] MEDS: D5W 1,000 ML IV SCH (02:34)
[2019-02-22] MEDS: LOPRESSOR PO SCH ×4 (03:30→21:22)
[2019-02-22] MEDS: PROTONIX IV SCH (06:13)
[2019-02-22] MEDS: MERREM 2 GM in NS 100 ML IV SCH ×3 (06:13→22:02)
[2019-02-22] MEDS: THYROID PO SCH (06:13)
[2019-02-22] MEDS: SODIUM CHLORIDE 0.9% INJ SCH (06:13)
[2019-02-22 06:40] LABS: BASO# 0.04 X1000 (0.0-0.2); BASO% 0.2 % (0.0-0.8); EOS# 0.08 X1000 (0.0-0.7); EOS% 0.4 % (0.0-10.0); HEMATOCRIT 33.6 % (37.0-47.0); HEMOGLOBIN 10.8 g/dL (12.0-16.0); IMM GRAN# 0.22 X1000 (0.0-0.04); IMM GRAN% 1.1 % (0.0-0.5); LYMPH# 2.77 X1000 (1.2-3.4); MCH 24.3 PG (27-31); MCHC 32.1 g/dL (33-37); MCV 75.5 FL (81-99); MONO# 2.22 X1000 (0.11-0.59); MONO% 11.2 % (1.7-9.3); MPV 12.1 FL (7.4-10.4); NEUT# 14.45 X1000 (1.4-6.5); NEUT% 73.1 % (42.2-75.2); PLT 557 X1000 (130-400); RBC 4.45 XMIL (4.2-5.4); RDW 22.6 % (11.5-14.5); WBC 19.78 X1000 (4.8-10.8)
[2019-02-22 06:56] LABS: AGAP 13; BUN 41 mg/dL (8-22); CALCIUM 10.5 mg/dL (8.8-10.2); CHLORIDE 101 mmol/L (98-107); COSMO 291; ESTIMATED GFR > 60; GLUCOSE 218 mg/dL (70-104); POTASSIUM 4.5 mmol/L (3.5-5.1); SODIUM 137 mmol/L (136-145); TCO2 23 mmol/L (25-35)
[2019-02-22 07:05] LABS: LYMPHS 15 % (21-51); MONO 10 % (1-9); NRBC 6 % (0-0); SEGS 75 % (42-75)
[2019-02-22] MEDS: PLAVIX PO SCH (08:23)
[2019-02-22] MEDS: COZAAR PO SCH (08:23)
[2019-02-22] MEDS: ARIXTRA SUBQ SCH (08:23)
[2019-02-22] MEDS: POTASSIUM CHLORIDE 20% LIQUID PO SCH (08:23)
[2019-02-22] MEDS: ZINC SULFATE PO SCH (08:23)
[2019-02-22] MEDS: LANTUS INSULIN SUBQ SCH (10:03)
--- NOTE | 2019-02-22 10:09 | PROGRESS NOTE ---
DATE: 02/22/2019 SUBJECTIVE: The patient is definitely more awake and alert today, able to engage in normal conversation, does follow commands. She does not remember being in the hospital, although she remembers that she has been seen by many doctors. At the time of my examination, she was eating okay without choking. OBJECTIVE: Vital Signs: Temperature 98.2 degrees, heart rate 99, respiratory rate 18, blood pressure 128/89, O2 saturation 100% on 3 L nasal cannula. General: This is a chronically ill- appearing, 58-year-old female, lying in bed in no acute distress, awake and alert. HEENT: Head is normocephalic, atraumatic. Mucous membranes dry. NG tube in place with tube feedings running. Neck: No JVD noted. No carotid bruits. No lymphadenopathy. No thyromegaly. Cardiovascular: S1, S2 heard. No murmurs, gallops, or rubs. Regular rate and rhythm. Respiratory: Decreased breath sounds globally. Still minimal coarse breath sounds noted in both pulmonary bases. The patient is not using any accessory muscles or having work of breathing. Abdomen: Soft, nondistended, nontender to palpation. Bowel sounds present. No organomegaly. Extremities: Both lower extremities continue to be cold to touch, with gangrenous toes in the right foot that are basically the same in comparing with the last 3 days. Dressing covering both heels. Peripheral pulses absent. Neurological: The patient is awake, alert, answers questions appropriately, moves all 4 extremities spontaneously. LABORATORY DATA: White cell count 19.78, hemoglobin 10.8, hematocrit 33.6, platelets 557,000. Creatinine 1.0. ASSESSMENT AND PLAN: This is a 58-year-old female with a prolonged hospitalization of 17 days, who has the following problems: 1. Left lower lobe pneumonia. The patient has been on antibiotics for a prolonged period of time. Today is day #13 of vancomycin, and meropenem day #8. White cell count has been very elevated. A week ago, her white cell count has been in the range of 20s. As we can see during the last 2 to 3 days, that has been still elevated in the range between [address] Mason from Infectious Disease is following this patient. Will follow recommendations. 2. Acute on chronic systolic congestive heart failure. The patient has a nonischemic cardiomyopathy with ejection fraction of 15%. Cardiology has been following this patient. At some point, she has been on the dry side. She has received some fluids. Last evaluation from them recommends to restart Lasix, so we are going to do that. She does not look to be in any exacerbation. 3. Left ventricular thrombus. This is what we found out on the echocardiogram approximately a week ago. At that time, the patient was thrombocytopenic, so she has been started on Arixtra. Will continue with the same management. 4. Peripheral vascular disease. The patient has this dry gangrene in the right foot that has been getting worse in the last few days, but General Surgery is following, and they recommend against any surgical approach. Will follow recommendations. 5. Thrombocytopenia, resolved. Actually at presentation, we were suspecting DSC, but it seems to be resolved now. 6. Hypercalcemia. It looks most likely secondary to hyperparathyroidism. Calcium has been checked on a daily basis, and today is 10.5. Will continue to monitor because chest CT was normal. 7. History of opiate abuse. Aware. The patient has been on Suboxone. At this point, she is not complaining of any pain, so will continue to monitor. 8. Global encephalopathy. I think that condition is getting better. She has history of dementia, but it seems that she just woke up today, unable to engage in a good conversation, and moving all 4 extremities spontaneously, following commands. Neurology has been following this patient. We have done an electroencephalogram that did not show any seizures. CT of the head was done at presentation and was normal. We tried to do an MRI of the brain at some point, but she is not a candidate considering that she had an automatic implantable cardioverter-defibrillator pacemaker. 9. Sinus tachycardia. The patient continues to be on metoprolol 50 mg by mouth every 6 hours. Will continue with the same management. 10. Acute liver injury, almost resolved. Will continue to monitor CMP. 11. Disposition. I think at this point, the patient is more awake and alert. We will reconsult Physical Therapy and Occupational Therapy. Will continue to monitor this patient closely. cc: Lucho Gomez MD
[2019-02-22] MEDS: LASIX PO SCH (11:05)
--- NOTE | 2019-02-22 18:12 | PULMONOLOGY PROGRESS NOTE ---
DATE: 02/22/2019 SUBJECTIVE: The patient is arousable to awake and alert. She does engage in conversation. Nurse indicates she has been taking some p.o. intake. OBJECTIVE: Vital Signs: The patient has been afebrile for the last 24 hours. Blood pressure 107/75, heart rate 96, respiratory rate 20, oxygen saturation 100% on 2 L per nasal cannula. HEENT: Pupils are equal and reactive. Oropharynx appears clear. Neck: Supple. Chest: Reveals decreased breath sounds of left base. Cardiac: S1-S2. Abdomen: Soft. Extremities: Reveal trace to 1+ peripheral edema. LABORATORIES: White blood count 19.7, hemoglobin 10.8, platelet count 557,000. Sodium 137, potassium 4.5, chloride 101, bicarbonate 23, BUN 41, creatinine 1. There is no new microbiology data. IMPRESSION: A 58-year-old with: 1. Left lower lobe pneumonia. 2. Nonischemic cardiomyopathy. 3. Left ventricular thrombus. 4. Encephalopathy with continued slow improvement. 5. Zinc deficiency. 6. Diabetes mellitus. 7. Hypercalcemia. PLAN: 1. Continue antibiotics per Infectious Disease. 2. Continue bronchial hygiene. 3. Follow up chest x-ray tomorrow morning. cc: Lucas Graves MD
[2019-02-23] MEDS: TYLENOL LIQUID PO PRN (00:23)
[2019-02-23] MEDS: HUMALOG SUBQ SCH ×6 (00:32→20:53)
[2019-02-23] MEDS ORDERED: PERCOCET-5 PO ONE (01:09)
[2019-02-23] MEDS: LOPRESSOR PO SCH ×4 (02:29→21:01)
[2019-02-23] MEDS ORDERED: ATIVAN IV ONE (03:38)
[2019-02-23] MEDS: MERREM 2 GM in NS 100 ML IV SCH (05:00)
[2019-02-23 05:11] LABS: BASO# 0.03 X1000 (0.0-0.2); BASO% 0.2 % (0.0-0.8); HEMATOCRIT 33.3 % (37.0-47.0); HEMOGLOBIN 10.5 g/dL (12.0-16.0); MCH 24.5 PG (27-31); MCHC 31.5 g/dL (33-37); MCV 77.6 FL (81-99); MPV 11.2 FL (7.4-10.4); PLT 590 X1000 (130-400); RBC 4.29 XMIL (4.2-5.4); RDW 23.6 % (11.5-14.5); WBC 16.72 X1000 (4.8-10.8)
[2019-02-23 05:35] LABS: AGAP 16; ALBUMIN 2.9 g/dL (3.5-5.0); ALKALINE PHOSPHATASE 337 U/L (32-104); BUN 42 mg/dL (8-22); CALCIUM 10.3 mg/dL (8.8-10.2); CHLORIDE 101 mmol/L (98-107); COSMO 288; ESTIMATED GFR > 60; GLUCOSE 136 mg/dL (70-104); GOT 28 U/L (10-30); GPT 32 U/L (10-36); SODIUM 138 mmol/L (136-145); TCO2 21 mmol/L (25-35); TOTAL BILIRUBIN 1.33 mg/dL (0.20-1.00); TOTAL PROTEIN 5.7 g/dL (6.3-8.3)
[2019-02-23] MEDS: SODIUM CHLORIDE 0.9% INJ SCH (06:14)
[2019-02-23] MEDS: PROTONIX IV SCH (06:14)
[2019-02-23] MEDS: THYROID PO SCH (06:15)
--- NOTE | 2019-02-23 06:46 | Diag Imaging Result Doc PS360 ---
EXAM: CHEST-PORTABLE HISTORY: pneumonia TECHNIQUE: Portable chest single view COMPARISON: 02/18/2019 FINDINGS: The lungs are well expanded. Mild increased interstitial markings in the left lung base. The heart is enlarged and there is a left-sided pacemaker. Questionable small left pleural effusion. No change in the right-sided PICC line. Nasogastric tube has been removed. IMPRESSION: No significant interval change. Electronically signed by Martell Araujo 02/23/2019 6:44 AM
[2019-02-23 07:02] LABS: LYMPHS 10 % (21-51); MONO 4 % (1-9); NRBC 3 % (0-0)
[2019-02-23 07:03] LABS: ANISOCYTOSIS 2+; BANDS 2 % (0-1); HYPOCHROM 2+; MICROCYTOSIS 1+; POIKILOCYTOSIS 2+; SEGS 80 % (42-75)
[2019-02-23 07:04] LABS: LARGE PLATELETS 1+; SCHISTOCYTES OCCASIONAL; TARGET CELLS OCCASIONAL
--- NOTE | 2019-02-23 07:56 | INFECTIOUS DISEASE PROGRESS NO ---
DATE: 02/23/2019 PRESENT ILLNESS: Patient is being treated for pneumonia. She does have gangrene of the toes of the right foot. The patient has leukocytosis which has persisted despite giving the patient broad- spectrum antibiotics. MEDICATIONS: This is day 14 of treatment with vancomycin and day 9 of treatment with meropenem. PHYSICAL EXAMINATION: Vital Signs: Temperature 97.9 degrees, pulse 76, respirations 16, and blood pressure 117/79. General: This is a chronically ill-appearing middle-aged female. She is in no acute distress. HEENT: There is no drainage from her nose or ears. I did not see any white patches in her mouth. Neck: No pain with movement. Lungs: Clear to auscultation. Cardiovascular: Regular heart rate. Thorax: The patient has a left-sided permanent pacemaker. The site is not swollen or tender. Abdomen: Soft and nontender. Extremities: Patient has gangrene of the right foot. The foot is swollen. It is tender. The gangrene is dry. Neurologic: The patient was slightly delirious. She was moving around in bed. She did not follow requests to move her extremities or to open her mouth. LABORATORY AND X-RAY: [place] [address], hemoglobin 10.5, and platelet count 590,000. Creatinine is 1. GFR is greater than 60. Alkaline phosphatase is 337. Chest x-ray showed mild left basilar interstitial markings. There is no definite infiltrate. ASSESSMENT AND PLAN: Patient has persistent leukocytosis. I think this is secondary to her right foot where she has dry gangrene of the toes. The foot is swollen. It is tender, and I think the patient has gangrenous cellulitis of the foot. I think the foot is responsible for the patient's leukocytosis. It does not seem that giving the patient antibiotics helps with the patient's right foot condition, and her white count remains elevated. Therefore, I am going to stop the patient's antibiotics. I am signing off of the patient's case. At this time, I do not think that she requires further antibiotic treatment. COMORBIDITIES: She has diabetes mellitus. She has a history of drug abuse, and she has had gastric bypass. cc: Arian Mason MD
[2019-02-23] MEDS: COZAAR PO SCH ×2 (09:32→14:53)
[2019-02-23] MEDS: ARIXTRA SUBQ SCH (09:32)
[2019-02-23] MEDS: LASIX PO SCH (09:33)
[2019-02-23] MEDS: LANTUS INSULIN SUBQ SCH (09:33)
[2019-02-23] MEDS: PLAVIX PO SCH ×3 (09:34→14:53)
[2019-02-23] MEDS: POTASSIUM CHLORIDE 20% LIQUID PO SCH (09:34)
[2019-02-23] MEDS: ZINC SULFATE PO SCH ×3 (09:34→14:53)
--- NOTE | 2019-02-23 11:39 | Diag Imaging Result Doc PS360 ---
CT HEAD W/O CONTRAST - 02/23/2019 INDICATION: encephalopathy COMPARISON: 02/05/2019 FINDINGS: The ventricles and sulci are normal in size and contour. No intracranial mass or hemorrhage. The skull is intact. The sinuses mastoids and middle ears are clear. IMPRESSION: Negative exam. This exam was performed using automated exposure control, adjustment of mA or kV according to patient size, and/or use of iterative reconstruction technique Electronically signed by Roger Whitesdie 02/23/2019 11:37 AM
--- NOTE | 2019-02-23 11:42 | PROGRESS NOTE ---
DATE: 02/23/2019 SUBJECTIVE: She is more confused today. Apparently, she got agitated overnight and was given Ativan 0.25 at around 4 a.m. I am not sure if that is the only thing but she had not recovered. OBJECTIVE: Blood pressure 119/86, heart rate of 86, respiratory rate of 12, temperature 98.4 degrees. Cardiovascular: Regular rate and rhythm. Pulmonary: Diminished at the bases. GI: Soft, nontender, nondistended. Bowel sounds were positive. Laboratory Data: White count 16, hemoglobin and hematocrit 10 and 33, platelets 590,000. BUN and creatinine of 42 and 1. Albumin is only 2.9. PROBLEM LIST: 1. Left lower lobe pneumonia. She is on antibiotics, day 14 of vancomycin, day [address] Mason is following and has stopped her antibiotics and has signed off. 2. Acute congestive heart failure. Ejection fraction is around 15%. She is on the dry side. She is back on Lasix daily and we will continue to monitor. 3. Left ventricular thrombus. She is on Arixtra. At some point, we will need to transition her to something else. Her platelet count is 590,000 so she is no longer thrombocytopenic. I will have to transition her to something by mouth. 4. Peripheral vascular disease. She has dry gangrene of the foot and at this point, we are just monitoring but I am not entirely sure and I am not sure if her encephalopathy may not be related to the infection. We may need to get surgery to re-evaluate her toes. I think Dr. Lopez was the main one. Her white count has gone down but she is off of all antibiotics. 5. Diabetes. We will continue to monitor. We will continue treatment and follow. 6. Disposition, pending her clinical status. Her mental status is not as good today. I will add some low-dose Haldol and hopefully we can avoid anything major. cc: Chapo Gomes MD
[2019-02-23] MEDS ORDERED: LASIX IV ONE (14:26)
--- NOTE | 2019-02-23 14:47 | PROGRESS NOTE ---
DATE: 02/23/2019 SUBJECTIVE: Patient continues awake and responsive. She answers very slowly in somewhat mumbled speech. She denies chest discomfort or shortness of breath, on supplemental oxygen per nasal cannula. OBJECTIVE: Vital Signs: Blood pressure 119/88, heart rate 88, oxygen saturation 100% on nasal cannula oxygen at 3 L per minute. Neck: Jugular venous distention is present, suggesting mild elevation in central venous pressure. Chest is clear to auscultation anteriorly. Cardiac Examination: Reveals a regular rate and rhythm without appreciable murmur or gallop. Extremities are without edema. Laboratory Data: Includes a white blood cell count of 16.72, hematocrit 33.3, hemoglobin 10.5, platelet count 590,000. Sodium 138, potassium 5.0, chloride 101, carbon dioxide 21, BUN 42, creatinine 1.0, glucose 136. IMPRESSION: 1. Reemergence of volume excess appears to be manifest. 2. Severe dilated nonischemic cardiomyopathy. 3. Left ventricular thrombus. 4. Atherosclerotic coronary artery disease. 5. Pneumonia. 6. Recent disseminated intravascular coagulation which appears to have resolved. 7. Encephalopathy with history of dementia. 8. Hypertension. 9. Hyperlipidemia. RECOMMENDATIONS: 1. Supplement with additional dose of IV Lasix. 2. Continue beta lis. 3. Continue low-dose ARB. 4. Continue anticoagulation. Patient currently on Arixtra. cc: Florian Singleton MD
--- NOTE | 2019-02-23 19:56 | PULMONOLOGY PROGRESS NOTE ---
DATE: 02/23/2019 SUBJECTIVE: The patient greeted me before I had entered into the room. The nurse reports she was more lethargic earlier this morning when she received a dose of Ativan last night for agitation. She appears to be comfortable and in no distress. OBJECTIVE: Vital Signs: The patient has been afebrile for the last 24 hours. Blood pressure 106/81, heart rate 80, respiratory rate 16, oxygen saturation 99% on 3 L per nasal cannula. HEENT: Pupils are equal and reactive. Oropharynx appears clear. Neck: Supple. Chest: Decreased breath sounds in the lung bases. Cardiac: S1, S2. Abdomen: Soft. Extremities: Areas of necrosis associated with digital ulcerations. LABORATORIES: Chest x-ray reveals some retrocardiac density on the left with generous cardiac silhouette. This has not significantly changed over the last 2 days, but has improved over the last 10 days. White blood count is 16.7, hemoglobin 10.5, platelet count 590,000. IMPRESSION: A 58-year-old with: 1. Left lower lobe pneumonia. 2. Nonischemic cardiomyopathy. 3. Left ventricular thrombus. 4. Encephalopathy with fluctuating mental status. 5. Diabetes mellitus with peripheral ischemia of the toes. 6. Hypercalcemia. 7. Zinc deficiency. PLAN: 1. The infectious disease note was reviewed. She has completed a course of antibiotics. Her antibiotics will be discontinued. 2. Continue bronchial hygiene. 3. Anticipate followup chest x-ray Saturday or morning. cc: Lucas Graves MD
[2019-02-23] MEDS ORDERED: D50W SYRINGE IV ONE (23:10)
[2019-02-23] MEDS: D50W SYRINGE IV PRN (23:14)
[2019-02-24] MEDS: HUMALOG SUBQ SCH ×4 (00:39→11:39)
[2019-02-24] MEDS: LOPRESSOR PO SCH ×4 (03:17→21:12)
[2019-02-24] MEDS: THYROID PO SCH (06:08)
[2019-02-24] MEDS: PRILOSEC PO SCH (06:08)
[2019-02-24 06:21] LABS: BASO# 0.02 X1000 (0.0-0.2); BASO% 0.1 % (0.0-0.8); EOS# 0.14 X1000 (0.0-0.7); EOS% 0.9 % (0.0-10.0); HEMATOCRIT 38.4 % (37.0-47.0); IMM GRAN# 0.12 X1000 (0.0-0.04); IMM GRAN% 0.7 % (0.0-0.5); LYMPH# 2.57 X1000 (1.2-3.4); LYMPH% 15.8 % (20.5-51.1); MCH 24.1 PG (27-31); MCHC 31.3 g/dL (33-37); MCV 77.1 FL (81-99); MONO# 2.25 X1000 (0.11-0.59); MONO% 13.9 % (1.7-9.3); MPV 11.3 FL (7.4-10.4); NEUT# 11.12 X1000 (1.4-6.5); NEUT% 68.6 % (42.2-75.2); PLT 728 X1000 (130-400); RBC 4.98 XMIL (4.2-5.4); RDW 25.2 % (11.5-14.5); WBC 16.22 X1000 (4.8-10.8)
[2019-02-24 06:54] LABS: AGAP 9; BUN 44 mg/dL (8-22); CALCIUM 10.6 mg/dL (8.8-10.2); CHLORIDE 100 mmol/L (98-107); COSMO 280; ESTIMATED GFR > 60; GLUCOSE 43 mg/dL (70-104); POTASSIUM 4.4 mmol/L (3.5-5.1); SODIUM 136 mmol/L (136-145); TCO2 27 mmol/L (25-35)
[2019-02-24 08:16] LABS: LYMPHS 16 % (21-51); MONO 18 % (1-9); NRBC 3 % (0-0); SEGS 64 % (42-75)
[2019-02-24 08:17] LABS: ANISOCYTOSIS 1+; HYPOCHROM 2+; MICROCYTOSIS 1+; POIKILOCYTOSIS 2+; SCHISTOCYTES OCCASIONAL; TARGET CELLS 1+
[2019-02-24] MEDS: COZAAR PO SCH (08:53)
[2019-02-24] MEDS: LASIX PO SCH (08:53)
[2019-02-24] MEDS: ZINC SULFATE PO SCH (08:53)
[2019-02-24] MEDS: POTASSIUM CHLORIDE 20% LIQUID PO SCH (08:53)
[2019-02-24] MEDS: PLAVIX PO SCH (08:53)
[2019-02-24] MEDS: LANTUS INSULIN SUBQ SCH (08:54)
[2019-02-24] MEDS: ARIXTRA SUBQ SCH (10:04)
[2019-02-24] MEDS ORDERED: D5 NS 1,000 ML IV SCH ×2 (12:30)
--- NOTE | 2019-02-24 12:47 | PROGRESS NOTE ---
DATE: 02/24/2019 SUBJECTIVE: Patient has no major complaints. OBJECTIVE: Blood pressure 95/66, heart rate of 76, respiratory rate 17, temperature 97.8 degrees, 93% on 2 L.Cardiovascular: Regular rate and rhythm. Pulmonary: Bilateral breath sounds clear to auscultation. GI: Soft, nontender. She has no peripheral edema. Her electrolytes are actually pretty decent except for her blood sugar is low. White count 16, hemoglobin and hematocrit 12 and 38, platelets 728,000. BUN and creatinine of 44 and 1. PROBLEM LIST: 1. Left lower lobe pneumonia. She is on vancomycin and Merrem, but I think Dr. Mason has stopped everything. It is not felt like this is pneumonia. 2. Congestive heart failure. She is on Lasix. The only thing is she has become hyperglycemic so I am going to put her on a little bit of D5 and we will see how she does, being careful not to overload her. We will just do it at 50 for one bag. 3. Diabetes, hypoglycemia. She has been persistently hypoglycemic, 40s, 20s, 50s. She has come up with dextrose infusions but I am going to put her back on D5 and hold her Lantus and we will start a lower dose sliding scale insulin. 4. Left ventricular thrombus. She is on Arixtra. We will continue to follow. 5. Gangrene of the foot. We will continue to monitor her. I do not know if surgery may need to re-evaluate her and follow. DISPOSITION: Still waiting on long-term improvement before we do it. Her encephalopathy is still an issue. I do not think she is amenable to psychiatric evaluation at this point because of everything else going on, but we will follow. cc: Chapo Gomes MD
[2019-02-24] MEDS: HUMULIN R SUBQ SCH ×2 (18:11→23:39)
--- NOTE | 2019-02-24 19:06 | CARDIOLOGY PROGRESS NOTE ---
DATE: 02/24/2019 SUBJECTIVE: Patient continues alert and responsive. She still is somewhat confused, but is a little better than the last few days. She denies chest discomfort or shortness of breath. OBJECTIVE: Blood pressure 124/85, heart rate 74, oxygen saturation 100% on nasal cannula oxygen. There is no significant jugular venous distention.Chest: Clear to auscultation. Cardiac: Regular rate and rhythm without appreciable murmur or gallop. There is no evidence of peripheral edema. There are ischemic changes in the distal right lower extremity/foot. LABORATORY DATA: Includes a white blood cell count of 16.22, hematocrit 38.4, hemoglobin 12.0, platelet count 728,000. Sodium 136, potassium 4.4, chloride 100, carbon dioxide 27, BUN 44, creatinine 1.0. Glucose this morning 43. IMPRESSION: 1. Chronic congestive heart failure. Volume status appears to be reasonable at present. 2. Severe dilated nonischemic cardiomyopathy. 3. Left ventricular thrombus. 4. Atherosclerotic coronary disease. 5. Pneumonia. 6. Recent thrombocytopenia related to disseminated intravascular coagulation. This appears to have improved. Platelet count actually elevated. 7. Encephalopathy with history of dementia. 8. Hypertension. 9. Hyperlipidemia. 10. Ischemic changes of distal right foot. RECOMMENDATIONS: 1. Continue beta lis at current dose. Switch from ARB to Entresto. 2. Given that thrombocytopenia has resolved, switch from Arixtra to Lovenox 1 mg/kg subcutaneous q.12 beginning tomorrow. Ultimately, patient probably should be put on warfarin in the long run given left ventricular thrombus which developed apparently while she had been on Eliquis prior to her current admission. cc: Florian Singleton MD
--- NOTE | 2019-02-24 20:26 | GENERAL SURGERY PROGRESS NOTE ---
DATE: 02/23/2019 SUBJECTIVE: She is much more alert. She is conversant but still disoriented. No fevers. No tachycardia. OBJECTIVE: Vital signs: Blood pressure is 124/85. General: She is alert. She does speak but sometimes inappropriately. She is eating her dinner. Abdomen: Soft. Extremities: Her right foot has dry ischemic changes distally. White count is stable at 16, hematocrit is 38, creatinine is 1.0. Glucoses have fluctuated from lows. ASSESSMENT AND PLAN: A 58-year-old female with prolonged ICU course. She suffered ischemia, most likely related to her disseminated intravascular coagulation and hypotension in the ICU in the setting of peripheral vascular disease and other issues. I do not see any signs of infection or cellulitis. She is not having any pain here. We will continue Betadine paint allowing the toes demarcate. cc: Marcy Lopez MD MTDD
[2019-02-24] MEDS: ENTRESTO 24 MG-26 MG TABLET PO SCH (21:12)
[2019-02-24] MEDS: TYLENOL LIQUID PO PRN (21:12)
[2019-02-24] MEDS: HALDOL IV PRN (23:40)
[2019-02-25] MEDS: THYROID PO SCH (06:15)
[2019-02-25] MEDS: PRILOSEC PO SCH (06:15)
[2019-02-25] MEDS: HUMULIN R SUBQ SCH ×4 (06:20→20:06)
[2019-02-25 06:24] LABS: BASO# 0.01 X1000 (0.0-0.2); BASO% 0.1 % (0.0-0.8); EOS% 0.9 % (0.0-10.0); HEMATOCRIT 36.7 % (37.0-47.0); HEMOGLOBIN 11.5 g/dL (12.0-16.0); IMM GRAN% 0.9 % (0.0-0.5); LYMPH# 0.95 X1000 (1.2-3.4); LYMPH% 8.2 % (20.5-51.1); MCH 24.7 PG (27-31); MCHC 31.3 g/dL (33-37); MCV 78.8 FL (81-99); MONO# 1.43 X1000 (0.11-0.59); MONO% 12.4 % (1.7-9.3); MPV 11.1 FL (7.4-10.4); NEUT# 8.96 X1000 (1.4-6.5); NEUT% 77.5 % (42.2-75.2); PLT 692 X1000 (130-400); RBC 4.66 XMIL (4.2-5.4); RDW 26.2 % (11.5-14.5); WBC 11.55 X1000 (4.8-10.8)
[2019-02-25 06:48] LABS: AGAP 11; BUN 34 mg/dL (8-22); CALCIUM 9.5 mg/dL (8.8-10.2); CHLORIDE 106 mmol/L (98-107); COSMO 307; CREATININE 0.8 mg/dL (0.5-0.9); ESTIMATED GFR > 60; POTASSIUM 3.9 mmol/L (3.5-5.1); SODIUM 141 mmol/L (136-145); TCO2 24 mmol/L (25-35)
[2019-02-25 07:12] LABS: GLUCOSE 418 mg/dL (70-104)
[2019-02-25 07:13] LABS: EOS 1 % (1-10); LYMPHS 8 % (21-51); MONO 11 % (1-9); SEGS 80 % (42-75)
[2019-02-25] MEDS: LOVENOX SUBQ SCH ×2 (09:04→20:03)
[2019-02-25] MEDS: ZINC SULFATE PO SCH (09:04)
[2019-02-25] MEDS: POTASSIUM CHLORIDE 20% LIQUID PO SCH ×2 (09:04→12:17)
[2019-02-25] MEDS: ENTRESTO 24 MG-26 MG TABLET PO SCH ×2 (09:04→20:03)
[2019-02-25] MEDS: LOPRESSOR PO SCH ×2 (09:04→20:03)
[2019-02-25] MEDS: LASIX PO SCH (09:05)
[2019-02-25] MEDS: LANTUS INSULIN SUBQ SCH (10:13)
[2019-02-25] MEDS ORDERED: POTASSIUM CHLORIDE 40 MEQ/SWI 40 MEQ/100 ML IVPB IV ONE (12:09)
--- NOTE | 2019-02-25 13:08 | PROGRESS NOTE ---
DATE: 02/25/2019 SUBJECTIVE: The patient has no major complaints. OBJECTIVE: Vital Signs: Blood pressure is 113/74, heart rate of 90, respiratory rate of 15, temperature 97.6 degrees, satting 97% on 2 L. Cardiovascular: Regular rate and rhythm. Pulmonary: Bilateral breath sounds. Clear to auscultation. GI: Soft, nontender, nondistended. Bowel sounds are positive. Extremity exam: No clubbing or cyanosis. Lymphatic exam: No peripheral edema. Neurological exam: Nonfocal. She is much better today as far as being awake and alert. She is still confused, but at least participating in PT and eating a bit more. LABORATORY DATA: White count is 11, which is a big improvement. H and H 11 and 36, platelets of 692, glucose up to 418, but she was progressively hypoglycemic yesterday. PROBLEM LIST: 1. Left lower lobe pneumonia with respiratory failure. She is off antibiotics and her white count is fine. 2. Congestive heart failure, systolic, which I think she is compensated. We will continue regular medications. 3. Hypoglycemia that has corrected. I put her back on her Lantus and follow. 4. Left ventricular thrombus. She is stable currently. Dr. Singleton has switched her to Lovenox. We will initiate Coumadin and follow. 5. Gangrene of the foot. We will continue to monitor. Surgery does not feel we need any other treatment right now, just kind of pain management, wound management. We will follow. DISPOSITION: Pending clinical status, but she has PT notes. I think she is probably ready for rehab when bed available at their discretion. cc: Chapo Gomes MD
[2019-02-25 19:30] LABS: PROTIME 16.1 Seconds (11.0-16.0)
[2019-02-25 19:31] LABS: INR 1.27
[2019-02-25] MEDS ORDERED: COUMADIN PO SCH (21:00)
[2019-02-26] MEDS: HUMULIN R SUBQ SCH ×4 (06:03→20:57)
[2019-02-26] MEDS: PRILOSEC PO SCH (06:07)
[2019-02-26] MEDS: THYROID PO SCH (06:08)
[2019-02-26 06:39] LABS: BASO# 0.01 X1000 (0.0-0.2); BASO% 0.1 % (0.0-0.8); EOS# 0.12 X1000 (0.0-0.7); HEMATOCRIT 34.2 % (37.0-47.0); HEMOGLOBIN 10.6 g/dL (12.0-16.0); IMM GRAN% 0.9 % (0.0-0.5); INR 1.33; LYMPH# 1.16 X1000 (1.2-3.4); MCH 24.8 PG (27-31); MCV 79.9 FL (81-99); MONO# 1.43 X1000 (0.11-0.59); MONO% 12.3 % (1.7-9.3); MPV 10.7 FL (7.4-10.4); NEUT# 8.78 X1000 (1.4-6.5); NEUT% 75.7 % (42.2-75.2); PLT 617 X1000 (130-400); PROTIME 16.8 Seconds (11.0-16.0); RBC 4.28 XMIL (4.2-5.4); RDW 26.3 % (11.5-14.5)
[2019-02-26 07:03] LABS: AGAP 9; BUN 29 mg/dL (8-22); CALCIUM 9.7 mg/dL (8.8-10.2); CHLORIDE 104 mmol/L (98-107); COSMO 283; CREATININE 0.7 mg/dL (0.5-0.9); ESTIMATED GFR > 60; GLUCOSE 122 mg/dL (70-104); SODIUM 138 mmol/L (136-145); TCO2 25 mmol/L (25-35)
[2019-02-26] MEDS: LASIX PO SCH (09:52)
[2019-02-26] MEDS: ZINC SULFATE PO SCH (09:52)
[2019-02-26] MEDS: ENTRESTO 24 MG-26 MG TABLET PO SCH ×2 (09:52→20:56)
[2019-02-26] MEDS: LOPRESSOR PO SCH ×2 (09:52→20:56)
[2019-02-26] MEDS: LOVENOX SUBQ SCH ×2 (09:53→20:56)
[2019-02-26] MEDS: LANTUS INSULIN SUBQ SCH (09:59)
--- NOTE | 2019-02-26 14:06 | PROGRESS NOTE ---
DATE: 02/26/2019 SUBJECTIVE: The patient has no major complaints. OBJECTIVE: Vital Signs: Blood pressure 120/79, heart rate 93, respiratory rate 18, temperature 97.5 degrees, saturating 94% on 2 L. Cardiovascular: Regular rate and rhythm. Pulmonary: Bilateral breath sounds. Clear to auscultation. GI: Soft, nontender, nondistended. Bowel sounds are positive. LABORATORY DATA: White count 11, hemoglobin and hematocrit 10 and 34, platelets 617,000. INR 1.3. Glucose is down to 122, BUN down to 29. PROBLEM LIST: 1. Left lower lobe pneumonia. She has completed antibiotics. She seems to be doing better. Her procalcitonin level was actually elevated, but she has completed her course of antibiotics. 2. Systolic congestive heart failure. She is well compensated. We will continue her regular medications, which include Lasix, she is also on Entresto per Dr. Singleton, and Lopressor. 3. Left ventricular thrombus. She is on Coumadin and Lovenox. Her INR is 1.33. May need to adjust down her Coumadin a little bit because she is rising a little bit too quickly. I am going to knock her down to 3 mg. 4. Disposition. Pending her clinical status. Anticipate discharge when we can work with [facility]. She has had several days where her mental status has improved. We are still waiting for Physical Therapy to work with her, and will continue to monitor. cc: Chapo Gomes MD
--- NOTE | 2019-02-26 19:20 | PROGRESS NOTE ---
DATE: 02/26/2019 SUBJECTIVE: The patient denies chest discomfort or shortness of breath. OBJECTIVE: Blood pressure 127/78, heart rate 94, oxygen saturation 93% on nasal cannula oxygen. Jugular venous distention cannot be appreciated. Chest is clear to auscultation anteriorly. Cardiac exam reveals a regular rate and rhythm without appreciable murmur or gallop. Extremities are without edema. LABORATORY DATA: Includes a white blood cell count of 11.6, hematocrit 34.2, hemoglobin 10.6, platelet count 617,000. Pro time 16.8, INR 1.33. Sodium 138, potassium 4.0, chloride 104, carbon dioxide 25, BUN 29, creatinine 0.7, glucose 122. IMPRESSION: 1. Chronic congestive heart failure. Volume status appears to be reasonable at present. 2. Severe dilated cardiomyopathy, nonischemic. 3. Left ventricular thrombus. 4. Atherosclerotic coronary disease. 5. Pneumonia. 6. Dementia. 7. Hypertension. 8. Hyperlipidemia. 9. Ischemic changes, distal right foot. RECOMMENDATIONS: 1. Continue current beta-lis and Entresto. 2. Continue Lasix daily. 3. Continue Lovenox until INR therapeutic, on warfarin. Target INR 2.0 to 3.0. cc: Florian Singleton MD
[2019-02-26] MEDS ORDERED: COUMADIN PO SCH (21:00)
--- NOTE | 2019-02-26 21:15 | PULMONOLOGY PROGRESS NOTE ---
DATE: 02/26/2019 SUBJECTIVE: The patient is awake, alert, and conversant. Mental status continues to improve. OBJECTIVE: Vital Signs: The patient has been afebrile for the last 24 hours. Blood pressure 127/78, heart rate 94, respiratory rate 20, oxygen saturation 93% on 2 L per nasal cannula. HEENT: Pupils are equal and reactive. Oropharynx appears clear. Neck: Supple. Chest: Reveals occasional crackles in the lung bases. Cardiac exam: S1, S2. Abdomen: Soft. Extremities: Reveal chronic ischemia of the right lower extremity with areas of necrosis on the right foot. IMPRESSION: A 58-year-old with: 1. Encephalopathy with continued improvement. 2. Nonischemic cardiomyopathy. 3. Left ventricular thrombus. 4. Hypoxemic respiratory failure. 5. Peripheral vascular disease. 6. Diabetes mellitus. PLAN: 1. Continue bronchial hygiene. 2. Continue to observe without antibiotics as long she has ongoing improvement. 3. We will schedule a followup chest x-ray tomorrow morning. cc: Lucas Graves MD
[2019-02-26 23:34] LABS: MAGNESIUM 1.6 mg/dL (1.5-2.7); POTASSIUM 4.2 mmol/L (3.5-5.1)
[2019-02-27] MEDS: TYLENOL LIQUID PO PRN (01:15)
[2019-02-27] MEDS: HALDOL IV PRN (01:15)
[2019-02-27] MEDS ORDERED: MAGNESIUM SULFATE 2 GM/S.W.I. 2 GM/50 ML IVPB IV ONE (02:20)
[2019-02-27] MEDS ORDERED: PERCOCET-5 PO ONE (02:21)
[2019-02-27] MEDS: PRILOSEC PO SCH (06:04)
[2019-02-27] MEDS: THYROID PO SCH (06:05)
[2019-02-27 06:14] LABS: BASO# 0.01 X1000 (0.0-0.2); BASO% 0.1 % (0.0-0.8); EOS# 0.11 X1000 (0.0-0.7); EOS% 0.8 % (0.0-10.0); HEMATOCRIT 32.6 % (37.0-47.0); IMM GRAN# 0.07 X1000 (0.0-0.04); IMM GRAN% 0.5 % (0.0-0.5); LYMPH# 1.36 X1000 (1.2-3.4); LYMPH% 9.3 % (20.5-51.1); MCH 24.6 PG (27-31); MCHC 30.7 g/dL (33-37); MCV 80.3 FL (81-99); MONO# 1.61 X1000 (0.11-0.59); MPV 10.7 FL (7.4-10.4); NEUT# 11.47 X1000 (1.4-6.5); NEUT% 78.3 % (42.2-75.2); PLT 601 X1000 (130-400); RBC 4.06 XMIL (4.2-5.4); RDW 26.2 % (11.5-14.5); WBC 14.63 X1000 (4.8-10.8)
[2019-02-27 06:24] LABS: INR 1.32; PROTIME 16.6 Seconds (11.0-16.0)
[2019-02-27 06:32] LABS: AGAP 10; BUN 25 mg/dL (8-22); CALCIUM 10.2 mg/dL (8.8-10.2); CHLORIDE 103 mmol/L (98-107); COSMO 276; CREATININE 0.8 mg/dL (0.5-0.9); ESTIMATED GFR > 60; GLUCOSE 64 mg/dL (70-104); POTASSIUM 4.2 mmol/L (3.5-5.1); SODIUM 137 mmol/L (136-145); TCO2 24 mmol/L (25-35)
[2019-02-27] MEDS: HUMULIN R SUBQ SCH ×3 (06:39→17:22)
--- NOTE | 2019-02-27 06:54 | Diag Imaging Result Doc PS360 ---
EXAM: CHEST-PORTABLE HISTORY: abnormal exam TECHNIQUE: Chest single view COMPARISON: 02/23/2019 FINDINGS: The lungs are well expanded. The heart is enlarged. Left-sided pacemaker. Right PICC line is unchanged The vessels are distended. No effusion identified. IMPRESSION: Cardiomegaly with worsening pulmonary edema Electronically signed by Martell Araujo 02/27/2019 6:52 AM
[2019-02-27] MEDS: ENTRESTO 24 MG-26 MG TABLET PO SCH ×2 (08:56→21:50)
[2019-02-27] MEDS: LANTUS INSULIN SUBQ SCH (08:56)
[2019-02-27] MEDS: LOPRESSOR PO SCH ×2 (08:57→21:50)
[2019-02-27] MEDS: LASIX PO SCH (08:57)
[2019-02-27] MEDS: ZINC SULFATE PO SCH (08:58)
[2019-02-27] MEDS: LOVENOX SUBQ SCH ×2 (08:58→21:51)
--- NOTE | 2019-02-27 12:03 | PROGRESS NOTE ---
DATE: 02/27/2019 SUBJECTIVE: This morning Ms. French refers to be doing fairly okay. She was kind of drowsy, I am not sure if she was just sleeping, but she was easily arousable and she would communicate a little bit and then go back to sleep. OBJECTIVE: Vital signs: Blood pressure is 131/74, pulse of 114, respirations 20, temperature is 97.4 degrees, the patient was saturating 97%. General: Ms. French is a 58-year-old female. She is in bed, she does not seem to be in any cardiopulmonary distress. HEENT: Mucosa is pink. Anicteric and acyanotic. Neck: Supple. Questionable JVD. Chest: Air entry is bilaterally reduced with diffuse bilateral crackles posteriorly. Cardiovascular: Regular rate and rhythm. Abdomen: Soft, distended, but nontender. Mild edema on the lateral aspect of the abdominal wall. Extremities: No pedal edema. Scar on the right lower extremity from previous vascular intervention. IMAGING: A chest x-ray this morning shows cardiomegaly with worsening pulmonary edema. LABORATORY DATA: INR is 1.32. Glucose is under control. Laboratory data has also been reviewed. WBC is 14.63, hemoglobin is 10.0, platelet count is 601,000. Chemistry is also reviewed and unremarkable. Glucose is 64, a repeat is 104. ASSESSMENT AND PLAN: 1. Fluid overload secondary to acute on chronic congestive systolic heart failure with an ejection fraction of 15% with global hypokinesis. The patient's volume status seems to be improving. 2. Left ventricle thrombus. The patient is on anticoagulant. Cardiology is on board. 3. Severe dilated nonischemic cardiomyopathy. 4. Encephalopathy with baseline dementia. The patient's mentation seems to be getting better per documentation. 5. Hypoxemic respiratory failure secondary to pulmonary edema and some pneumonia. The patient has completed antimicrobial therapy. 6. Peripheral vascular disease. 7. Diabetes mellitus, controlled. 8. Acute kidney injury during the hospital course, resolved. 9. Generalized weakness and deconditioning. The patient is being seen by Physical Therapy, she was able to do about 2 feet yesterday and is pending further evaluation today. 10. Disposition. Pending rehab/[facility] placement. So in general the plan today is we have gone up on the patient's Coumadin to obtain adequate INR level. We will also discontinue the Cervantes catheter today. We will continue with the rest of her current medications. The patient is pending physical therapy evaluation today and also arrangements to go to rehab. cc: Travon Malhotra MD MTDD
[2019-02-27] MEDS: COUMADIN PO SCH (21:50)
[2019-02-28] MEDS: HUMULIN R SUBQ SCH ×5 (01:04→20:58)
[2019-02-28] MEDS: TYLENOL LIQUID PO PRN ×2 (03:48→14:11)
[2019-02-28] MEDS: HALDOL IV PRN ×3 (04:05→22:43)
[2019-02-28] MEDS: PRILOSEC PO SCH (06:17)
[2019-02-28] MEDS: THYROID PO SCH (06:39)
[2019-02-28] MEDS: LANTUS INSULIN SUBQ SCH (09:56)
[2019-02-28] MEDS: ENTRESTO 24 MG-26 MG TABLET PO SCH ×2 (09:56→20:54)
[2019-02-28] MEDS: LASIX PO SCH (09:56)
[2019-02-28] MEDS: LOPRESSOR PO SCH ×2 (09:57→20:54)
[2019-02-28] MEDS: ZINC SULFATE PO SCH (09:57)
[2019-02-28] MEDS: LOVENOX SUBQ SCH ×2 (09:57→20:54)
[2019-02-28 11:39] LABS: INR 1.79; PROTIME 21.2 Seconds (11.0-16.0)
--- NOTE | 2019-02-28 14:08 | PROGRESS NOTE ---
DATE: 02/28/2019 SUBJECTIVE: This morning Ms. French refers to be doing fair. She did not have any new complaints. OBJECTIVE: Vital signs: Blood pressure is 130/82, pulse of 105, respiration is 18, temperature 97.5 degrees. General exam: Ms. French is a 58-year-old female. She is in bed, did not seem to be in any distress. HEENT: Mucosa is pink and moist. Anicteric. Acyanotic. Neck: Supple. Chest: Good air entry bilateral. A few crackles in the posterior lung denise. Cardiovascular: Regular rate and rhythm. No murmurs. Abdomen: Soft, nontender. Bowel sounds present. Extremities: No pedal edema. There is some scar in the right lower extremity from previous vascular intervention. Central nervous system: Patient is awake. Will respond appropriately occasionally, but other times she would just speak out of context. She will occasionally also follow commands. Obviously, she is disoriented to place and time. LABORATORY DATA: Glucose was about 20 this morning. There is no new repeat. MEDICATIONS: Have all been reviewed. ASSESSMENT: 1. Fluid overload secondary to acute on chronic congestive heart failure with ejection fraction of 15% with global hypokinesis. The patient's volume status seems to have remarkably improved. 2. Left ventricle thrombus. The patient continues to be on anticoagulants. 3. Severe dilated nonischemic cardiomyopathy. Cardiology is on board. 4. Encephalopathy with baseline dementia. We will continue addressing possible underlying metabolic disorders, including hypoglycemia. 5. Hypoxemic respiratory failure secondary to pulmonary edema and pneumonia, improved. 6. Peripheral vascular disease. 7. Diabetes mellitus, controlled. 8. Acute kidney injury during the hospital course, resolved. 9. Generalized weakness and deconditioning. Physical therapy has been consulted. PLAN: So, we are going to continue to monitor patient's glucose level today. We will also continue with her current management plan. We are going to continue with her current medications, and follow up with further improvements or further findings from physical therapy. INR is up to 1.79, so we are going to continue with 5 mg of Coumadin today and then probably readjust it on Saturday. DISPOSITION: Pending rehabilitation /[facility] placement. cc: Travon Malhotra MD MTDD
[2019-02-28] MEDS: COUMADIN PO SCH (20:54)
[2019-03-01] MEDS: D50W SYRINGE IV PRN ×2 (06:21→06:53)
[2019-03-01] MEDS: HUMULIN R SUBQ SCH ×4 (06:35→20:39)
[2019-03-01] MEDS: PRILOSEC PO SCH (06:35)
[2019-03-01] MEDS: THYROID PO SCH (06:35)
[2019-03-01 06:42] LABS: HEMOGLOBIN A1C 9.2 % (4.8-6.0)
--- NOTE | 2019-03-01 06:46 | Diag Imaging Result Doc PS360 ---
EXAM: CHEST-1 VIEW HISTORY: SOB TECHNIQUE: Chest single view COMPARISON: 02/27/2019 FINDINGS: Good inspiration. Cardiomegaly remains. Decrease in the infiltrates and pulmonary edema. Right-sided PICC line and left pacemaker are unchanged. IMPRESSION: Mild improvement. Electronically signed by Martell Araujo 03/01/2019 6:44 AM
[2019-03-01 07:18] LABS: AGAP 10; ALBUMIN 2.8 g/dL (3.5-5.0); BUN 26 mg/dL (8-22); CALCIUM 10.3 mg/dL (8.8-10.2); CHLORIDE 103 mmol/L (98-107); COSMO 278; CREATININE 0.9 mg/dL (0.5-0.9); ESTIMATED GFR > 60; PHOSPHORUS 3.6 mg/dL (2.7-4.5); POTASSIUM 4.1 mmol/L (3.5-5.1); SODIUM 139 mmol/L (136-145); TCO2 26 mmol/L (25-35)
[2019-03-01 07:27] LABS: GLUCOSE 28 mg/dL (70-104)
[2019-03-01] MEDS: HALDOL IV PRN ×2 (08:26→15:05)
[2019-03-01] MEDS: TYLENOL LIQUID PO PRN ×2 (08:26→15:06)
[2019-03-01] MEDS: ENTRESTO 24 MG-26 MG TABLET PO SCH ×2 (09:16→20:35)
[2019-03-01] MEDS: LASIX PO SCH (09:17)
[2019-03-01] MEDS: ZINC SULFATE PO SCH (09:17)
[2019-03-01] MEDS: LOPRESSOR PO SCH ×2 (09:17→20:35)
[2019-03-01] MEDS: LOVENOX SUBQ SCH ×2 (09:17→20:35)
[2019-03-01] MEDS: LANTUS INSULIN SUBQ SCH (09:17)
[2019-03-01 09:19] LABS: INR 2.29; PROTIME 25.8 Seconds (11.0-16.0)
--- NOTE | 2019-03-01 12:34 | PROGRESS NOTE ---
DATE: 03/01/2019 SUBJECTIVE: This morning, Ms. French refers to be doing well. Denies any new complaints. OBJECTIVE: Vital Signs: Blood pressure is 140/92, pulse of 104, respirations are 18, temperature is 97.7 degrees. General Examination: Ms. French is a 58-year-old, female. She is in bed. No distress. HEENT: Mucosa is pink and moist. Anicteric. Acyanotic. Neck: Supple. Chest: Clear. A few crackles in the posterior lung denise but otherwise no wheezing. Cardiovascular: Regular rate and rhythm. Abdomen: Soft, nontender. Bowel sounds present. Extremities: No pedal edema. There is a scar on the right medial side of the thigh from previous vascular intervention. The right lower extremity is cold. The digits are dry, gangrenous, worse on the big toe. The left leg is also minimally cold and distal pulses are almost imperceptible. 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 She is oriented to place and to person, disoriented to time. This morning, glucose was 28. Repeat has been 109. A1c was 9.3. ASSESSMENT: 1. Fluid overload secondary to acute on chronic congestive heart failure with ejection fraction of 15% with global hypokinesis. Patient seems to be now euvolemic. 2. Left ventricle thrombus. We will continue with anticoagulants. INR this morning is 2.29. We will dose 2.5 of Coumadin today. 3. Severe dilated nonischemic cardiomyopathy. 4. Encephalopathy with baseline dementia. 5. Hypoxemic respiratory failure secondary to pulmonary edema and pneumonia, improved. 6. Severe peripheral vascular disease with dry gangrene on the right lower extremity. Surgery is on board. 7. Diabetes mellitus with A1c of 9.2 noted. 8. Recurrent hypoglycemia, presumably due to inadequate oral intake. 9. Acute kidney injury during the hospital course, resolved. 10. History of primary hyperparathyroidism with parathyroid adenoma. 11. Generalized weakness and deconditioning. Physical therapy is on board. 12. Disposition, is pending rehab placement. cc: Travon Malhotra MD
[2019-03-01] MEDS: COUMADIN PO SCH (20:35)
[2019-03-02] MEDS: HALDOL IV PRN (00:12)
[2019-03-02] MEDS: PRILOSEC PO SCH ×2 (05:49→06:22)
[2019-03-02] MEDS: THYROID PO SCH (06:22)
[2019-03-02] MEDS: HUMULIN R SUBQ SCH ×4 (06:22→20:47)
[2019-03-02 07:35] LABS: INR 2.52; PROTIME 27.9 Seconds (11.0-16.0)
[2019-03-02 07:36] LABS: HEMATOCRIT 29.5 % (37.0-47.0); HEMOGLOBIN 9.1 g/dL (12.0-16.0); MCH 24.7 PG (27-31); MCHC 30.8 g/dL (33-37); MCV 80.2 FL (81-99); MPV 10.7 FL (7.4-10.4); RBC 3.68 XMIL (4.2-5.4); RDW 26.5 % (11.5-14.5); WBC 10.53 X1000 (4.8-10.8)
[2019-03-02 07:56] LABS: AGAP 10; ALB/GLOB RATIO 0.6; ALBUMIN 2.4 g/dL (3.5-5.0); ALKALINE PHOSPHATASE 269 U/L (32-104); BUN 31 mg/dL (8-22); CALCIUM 9.7 mg/dL (8.8-10.2); CHLORIDE 103 mmol/L (98-107); COSMO 279; ESTIMATED GFR > 60; GLUCOSE 102 mg/dL (70-104); GOT 23 U/L (10-30); GPT 22 U/L (10-36); MAGNESIUM 1.9 mg/dL (1.5-2.7); PHOSPHORUS 4.1 mg/dL (2.7-4.5); POTASSIUM 4.4 mmol/L (3.5-5.1); SODIUM 136 mmol/L (136-145); TCO2 23 mmol/L (25-35); TOTAL BILIRUBIN 0.75 mg/dL (0.20-1.00); TOTAL PROTEIN 6.2 g/dL (6.3-8.3)
[2019-03-02] MEDS: LASIX PO SCH (08:39)
[2019-03-02] MEDS: LANTUS INSULIN SUBQ SCH (08:39)
[2019-03-02] MEDS: LOPRESSOR PO SCH ×2 (08:39→20:46)
[2019-03-02] MEDS: LOVENOX SUBQ SCH (08:39)
[2019-03-02] MEDS: ZINC SULFATE PO SCH (08:39)
[2019-03-02] MEDS: ENTRESTO 24 MG-26 MG TABLET PO SCH ×2 (08:43→20:46)
--- NOTE | 2019-03-02 13:38 | PROGRESS NOTE ---
DATE: 03/02/2019 SUBJECTIVE: This morning, Ms. French referred to be doing a lot better. She was more engaged than days before. OBJECTIVE: Vital Signs: Blood pressure is 130/82, pulse of 83, respirations are 21, temperature is 97.5 degrees. The patient was saturating 100%. General Examination: Ms. French is a 58-year- old, female. She is in bed. No distress. HEENT: Mucosa is pink and moist. Anicteric. Acyanotic. Neck: Supple. Chest: Good air entry bilaterally. There were no crepitations, no rhonchi. Cardiovascular: Regular rate and rhythm. There is a pacemaker generator pocket on the left anterior chest wall. Abdomen: Soft. Distended but nontender. Bowel sounds present. There is an old right upper quadrant surgical scar. Extremities: The right lower extremity is remarkably colder. There is a dry gangrene of the big toe as well as some gangrene changes in the rest of the other toes. The left is also minimally cold. Pulse is present but it is remarkably reduced. 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 Laboratory Data: CBC reveals microcytic anemia. INR is 2.52. Chemistry is within normal range. ASSESSMENT: 1. Fluid overload on presentation secondary to congestive heart failure. Ejection fraction is 15% with global hypokinesis. The patient is currently euvolemic. We will continue with her medications. 2. Left ventricle thrombus. The patient's INR is 2.52 today. We are going to continue dosing 2.5 of Coumadin and we will discontinue the Lovenox. 3. Severe dilated nonischemic cardiomyopathy. We will continue with medical management. 4. Encephalopathy with baseline dementia. The patient seems to be at her baseline. 5. Hypoxemic respiratory failure on presentation due to a combination of pulmonary edema and pneumonia, all improved. 6. Severe peripheral vascular disease with dry gangrene on the right lower extremity. Surgery is on board. I think Ms. French will eventually lose the right lower extremity. 7. Diabetes mellitus with A1c of 9.2. We will continue with low-dose insulin management. 8. Recurrent hypoglycemia, presumably due to inadequate oral intake. Glucose level has been fairly stabilized lately. 9. History of primary hyperparathyroidism with parathyroid adenoma. I think Ms. French would need to be evaluated at some point by surgery. We will start her on Sensipar for now. 10. Generalized weakness and deconditioning. Physical therapy is on board. 11. Disposition, pending rehab placement. cc: Travon Malhotra MD
[2019-03-02] MEDS: TYLENOL LIQUID PO PRN (14:45)
[2019-03-02] MEDS: SENSIPAR PO SCH (20:46)
[2019-03-02] MEDS: COUMADIN PO SCH (20:46)
[2019-03-03] MEDS: THYROID PO SCH (06:50)
[2019-03-03] MEDS: HUMULIN R SUBQ SCH ×5 (06:51→22:13)
[2019-03-03] MEDS: LASIX PO SCH (10:14)
[2019-03-03] MEDS: ZINC SULFATE PO SCH (10:14)
[2019-03-03] MEDS: SENSIPAR PO SCH ×2 (10:14→22:13)
[2019-03-03] MEDS: LOPRESSOR PO SCH ×2 (10:14→22:12)
[2019-03-03] MEDS: ENTRESTO 24 MG-26 MG TABLET PO SCH ×2 (10:14→22:13)
[2019-03-03] MEDS: LANTUS INSULIN SUBQ SCH (10:14)
[2019-03-03] MEDS: TYLENOL LIQUID PO PRN ×2 (11:10→22:12)
--- NOTE | 2019-03-03 14:32 | DISCHARGE SUMMARY ---
ADMISSION DATE: 02/05/2019 DISCHARGE DATE: 03/03/2019 LENGTH OF STAY: 26 days. DISPOSITION: [facility]. CONSULTATIONS DURING THIS ADMISSION: 1. ID was consulted. The patient was seen by Dr. Mason. 2. Nephrology was consulted. The patient was seen by Dr. Zabala. 3. Cardiology was consulted. The patient was seen by Dr. Singleton. 4. Neurology was consulted. The patient was seen by Dr. Ibarra. INVASIVE PROCEDURES DONE DURING THIS ADMISSION: None. IMAGING STUDIES OF SIGNIFICANCE: 1. A chest x-ray showed a left lower lobe pneumonia. 2. A CT scan showed no acute changes. 3. Ultrasound of the abdomen showed status post cholecystectomy, normal caliber of the CBD, mildly echogenic renal cortices which can be seen with medical renal disease. 4. Multiple x-rays were done. 5. A CT scan of the chest was done on 02/12/2019, which showed mixed infiltrate, probably pneumonia and pulmonary edema, mild COPD, and severe edema of wall. 6. A repeat CT scan of the head was unremarkable. 7. A repeat chest x-ray did show interval improvement. ADMISSION DIAGNOSES: 1. Sepsis, left lower lobe pneumonia. 2. Congestive heart failure. 3. Hyperglycemic, hyperosmolar, nonketotic. 4. Acute kidney injury. DIAGNOSES AT THE TIME OF DISCHARGE: 1. Altered mental status secondary to global encephalopathy with baseline dementia. 2. Fluid overload. 3. Congestive heart failure with ejection fraction of 15% associated with global hypokinesis. 4. Left ventricle thrombus. 5. Severe dilated nonischemic cardiomyopathy. 6. Hypoxemic respiratory failure during the hospital course, improved. 7. Severe peripheral vascular disease with dry gangrene on the right lower extremity. 8. Diabetes mellitus with a presenting A1c of 9.2, associated with hypoosmolar nonketotic state. 9. Recurrent hypoglycemia, presumably due to inadequate oral intake. 10. Primary hyperparathyroidism with parathyroid adenoma. The patient is currently not a surgical candidate, has been started on Sensipar, and has been advised to follow up with Surgery. 11. Generalized weakness and deconditioning. DISCHARGE MEDICATIONS: 1. Trazodone 50 mg at bedtime. 2. Thyroid 1.5 p.o. daily. 3. Entresto 1 tablet b.i.d. 4. Insulin glargine 5 units subcutaneously daily. 5. Furosemide 40 mg p.o. daily. 6. Metoprolol 50 mg b.i.d. 7. Zinc sulfate 220 p.o. daily. 8. Coumadin 2.5 p.o. at bedtime. 9. Sensipar 30 mg b.i.d. PRESENTING COMPLAINT: High blood glucose and lethargy. HISTORY OF PRESENTING COMPLAINT: Ms. French is a 58-year-old female, who is known to have primary hyperparathyroidism and nonischemic dilated cardiomyopathy with ejection fraction of 15%, coronary artery disease, diabetes mellitus, who came to the emergency department because of lethargy. Sugar was found to be over 500. She was evaluated, was found to be in hyperglycemia, hyperosmolar, nonketotic. She was admitted to the ICU for critical care management. HOSPITAL COURSE: Ms. French was admitted to the ICU, was adequately fluid resuscitated, and she was started on broad-spectrum IV antibiotics. A chest x-ray did suggest a right lower lobe pneumonia. Blood cultures came back negative. During the hospital course, Ms. French progressively got better. She was transferred from the ICU to the medical floor. She did have in and out issues with her sensorium. She was evaluated on multiple occasions by Neurology as well. Ms. French was also seen by Nephrology because of renal failure, which progressively improved, and the patient had normalized renal function tests on serial exams. Ms. French was also seen sometime during the hospital course by Cardiology because of congestive heart failure and fluid overload, which progressively got better with diuretic therapy. During the hospital course, Ms. French continued to also have episodes of hypoglycemia. Her insulin regimen was changed. She was put on a lower dose of insulin, and her glucose level has been fairly within acceptable range. Her mentation has also significantly improved. Ms. Chavez has primary hyperparathyroidism. However, because she is not a surgical candidate at this point, she has been started on Sensipar, and she will follow up with Surgery some time in the near future. Today, Ms. French is doing well. She denies any new complaints. Her vitals are stable. Blood pressure is 126/80, pulse of 81, respirations 21, temperature 98 degrees. Her physical exam is remarkable for dry gangrene changes on the right lower extremity, which Surgery has evaluated her for. We think she is fairly stable to go to the rehab, and also to continue followup with the other subspecialties that have been involved in her care. All the discharge instructions have been discussed with her. TIME SPENT: Time spent for discharge was 40 minutes. cc: MD Patrick Freeman MD William D. Denney, MD Dr. Harris
[2019-03-03] MEDS: COUMADIN PO SCH (22:13)
[2019-03-04] MEDS: HUMULIN R SUBQ SCH (06:03)
[2019-03-04] MEDS: THYROID PO SCH (06:46)
[2019-03-04 07:40] VITALS: BP 128/84
== END 2019-03-04 09:10 | DRG 871 ==
LOC: SUPCPDRO → ED 10:14 → ICU 10:15 → SUATTDRO 10:15 → 2N 02-13 19:30 → 3N 02-27 14:41
PROVIDERS: ATTEND Internal Medicine